=== PATIENT | female | born 1960 | race Caucasian/White ===

== ENCOUNTER 2018-07-18 20:37 | Inpatient (IN) | END 2018-07-21 14:45 | disposition home or self-care (01) | DRG 378 ==

== ENCOUNTER 2018-12-22 20:54 | Inpatient (IN) | payer OTHER ==
[~2018-12-22] VITALS: Ht 157.5 cm; Wt 104.6 kg
[2018-12-22 20:00] VITALS: BP 99/57; PULSE 60; RESP 18
[~2018-12-22 20:54] MED LIST: CEPH500C PO; CYAN100080 PO; FER325 PO; FOLI-49 PO; GABA300C16 PO; INSU100I12 SQ; INSU100I33 SC; LISI10TA2 PO; PANT40TA3 PO; PRAV20TA2 PO; SUCR1TAB35 PO
[2018-12-22 21:30] VITALS: BP 178/86; PULSE 81; RESP 20
[2018-12-22 21:54] VITALS: Ht 157.5 cm; Wt 104.6 kg
[2018-12-22] MEDS ORDERED: AL HYDROX/MG HYDROX/SIMETH 30 ML CUP PO PRN (22:00)
[2018-12-22] MEDS ORDERED: AMOXICILLIN/CLAV 250 MG TAB PO SCH ×2 (22:00→22:45)
[2018-12-22] MEDS ORDERED: SENNA TAB PO SCH (22:00)
[2018-12-22] MEDS ORDERED: DOCUSATE SODIUM 100 MG CAP PO SCH (22:00)
[2018-12-22] MEDS ORDERED: oxyCODONE 5 MG TAB PO PRN ×2 (22:00)
[2018-12-22] MEDS ORDERED: ONDANSETRON 4 MG INJ IV PRN (22:00)
[2018-12-22] MEDS ORDERED: POLYETHYLENE GLYCOL 17 GM PACKET NGT PRN (22:30)
[2018-12-22] MEDS: LABETALOL 200 MG TAB PO SCH (22:49)
[2018-12-22] MEDS: HEPARIN 5,000 UNIT/1 ML VIAL SC SCH (22:50)
[2018-12-22] MEDS: ACCU-CHEK XX SCH (23:21)
[2018-12-22] MEDS ORDERED: GLUCOSE GEL 15 GRAM TUBE PO PRN ×2 (23:30)
[2018-12-22] MEDS: AMOXICILLIN/CLAV 875 MG TAB PO SCH (23:30)
[2018-12-22] MEDS ORDERED: GLUCOSE GEL 15 GRAM TUBE BUCCAL PRN (23:30)
[2018-12-22] MEDS ORDERED: DEXTROSE 50% 50 ML SYRINGE IV PRN ×2 (23:30)
[2018-12-22] MEDS ORDERED: GLUCAGON 1 MG INJ IM PRN (23:30)
[2018-12-22] MEDS: INSULIN ASPART [NOVOLOG] 3 ML PEN SC SCH (23:31)
[2018-12-23] VITALS (9 sets, daily range): BP systolic 140–207; BP diastolic 70–102; PULSE 66–83; RESP 18
[2018-12-23] MEDS ORDERED: PENDING SANTYL ORDER FOR WOUND CARE XX PRN
[2018-12-23] MEDS ORDERED: LACTULOSE 30ML CUP PO PRN
[2018-12-23] MEDS ORDERED: BISACODYL 10 MG SUPP PR PRN
[2018-12-23] MEDS: ACCU-CHEK XX SCH ×5 (02:00→21:06)
[2018-12-23] MEDS: LABETALOL 100 MG TAB PO PRN (04:55)
[2018-12-23] MEDS: HEPARIN 5,000 UNIT/1 ML VIAL SC SCH ×3 (06:28→22:44)
[2018-12-23] MEDS ORDERED: ACCU-CHEK XX SCH ×2 (07:05→11:30)
[2018-12-23] MEDS: LINAGLIPTIN 5 MG TABLET PO SCH (08:20)
[2018-12-23] MEDS: INSULIN ASPART [NOVOLOG] 3 ML PEN SC SCH ×4 (08:20→21:00)
[2018-12-23] MEDS: INSULIN GLARGINE [LANTus] (100 UNITS/ML) SYG SC SCH (08:28)
[2018-12-23] MEDS: AMOXICILLIN/CLAV 875 MG TAB PO SCH ×2 (08:30→20:58)
[2018-12-23] MEDS: GABAPENTIN 300 MG CAP PO SCH ×3 (08:39→20:58)
[2018-12-23] MEDS: AMLODIPINE 10 MG TAB PO SCH (08:40)
[2018-12-23] MEDS: DOCUSATE SODIUM 100 MG CAP PO SCH ×2 (08:40→20:58)
[2018-12-23] MEDS: ASPIRIN 81 MG TAB PO SCH (08:40)
[2018-12-23] MEDS: LACTOBACILLUS RHAMNOSUS CAP PO SCH ×3 (08:41→20:58)
[2018-12-23] MEDS: FERROUS SULFATE (EC) 325 MG TAB PO SCH (08:41)
[2018-12-23] MEDS: FAMOTIDINE 20 MG TAB PO SCH (08:41)
[2018-12-23] MEDS: ASCORBIC ACID 500 MG TAB PO SCH (08:41)
[2018-12-23] MEDS: FOLIC ACID 1 MG TAB PO SCH (08:41)
[2018-12-23] MEDS: LABETALOL 200 MG TAB PO SCH ×3 (08:41→22:43)
[2018-12-23] MEDS ORDERED: AMOXICILLIN/CLAV 250 MG TAB PO SCH (09:00)
[2018-12-23] MEDS: NYSTATIN 30 GM POWDER BTL TOP SCH ×2 (09:47→20:59)
--- NOTE | 2018-12-23 10:37 | HP ---
DATE OF ADMISSION: 12/22/2018 CHIEF COMPLAINT: Status post right BKA. HISTORY OF PRESENT ILLNESS: This is a 58-year-old female with a past medical history of diabetes, history of hypertension who underwent a fall weeks ago resulting in fracture of her right ankle. The patient underwent open reduction internal fixation [facility]. Postoperatively, the patient's course was complicated with infection. The patient required surgical debridement, but eventually was transferred to [facility] on 10/10/2018 for higher level of care. The patient at underwent surgical debridement was placed on antibiotic therapy. However, the patient was found to have osteomyelitis of the entire tibial and distal portions of the fibula as well. The patient was subsequently advised, given her situation that she would require amputation of the infected bone. The patient then underwent right transtibial amputation on 12/16/2017. The patient postoperatively was noted to have an episode of acute kidney injury, had electrolyte disorder. The patient was improved with conservative management. Patient also completed a prolonged antibiotic course but given her significant decline in premorbid condition, was transferred to [facility] for continued care. Upon my evaluation of the patient at this time, she is currently stable and is anxious, nervous. Denies any hemoptysis, hematemesis or hematochezia. Denies any pain. PAST MEDICAL HISTORY: History of diabetes, history of hypertension, history of peripheral vascular disease, history of neuropathy, history of dyslipidemia, history of diabetic wound ulcers with debridement in the past. PAST SURGICAL HISTORY: Reviewed. The patient had open reduction internal fixation on 11/15/2018 of the ankle. ALLERGIES: PATIENT IS ALLERGIC TO PENICILLIN. FAMILY HISTORY: No family history of kidney disease. SOCIAL HISTORY: Does not drink, smoke or do drugs. MEDICATIONS: Have been reviewed. REVIEW OF SYSTEMS: A 14-point review of systems conducted. Pertinent positives stated in HPI, otherwise negative. PHYSICAL EXAMINATION: VITAL SIGNS: Blood pressure is 165/80, respiration 18, pulse 81, temperature 98.4. HEENT: Head is normocephalic. NECK: Supple. HEART: Regular rate. LUNGS: Show diminished breath sounds at base. ABDOMEN: Soft, nontender to palpation without rebound or guarding. EXTREMITIES: Negative for clubbing, cyanosis, no edema in the left leg. Right below-knee amputation is noted. DERMATOLOGIC: No rashes. MUSCULOSKELETAL: No joint effusion. NEUROLOGIC: No change in exam. MEDICATIONS: Have been reviewed. LABORATORY DATA: Shows sodium 138, potassium 4.1, BUN 11, creatinine 1.31, glucose is 303. White count 8.7, hemoglobin 10.6, platelet count 428. ASSESSMENT AND PLAN: This is a 58-year-old female who presents with: 1. Right transtibial amputation. Plan to continue wound care, dressing changes. Continue pain control. Continue physical therapy. 2. Osteomyelitis of tibial bone s/p amputation. Will consult ID for antibiotic management. 2. Hypertension. Blood pressure currently elevated. Will adjust blood pressure medications. 3. Diabetes. Glucose levels are markedly elevated. We will adjust insulin regimen. 4. Anemia. Continue to monitor hemoglobin and hematocrit levels. 5. Mineral bone disorder, monitor calcium and phosphorus levels. 6. Neuropathy. Continue Neurontin. Will adjust as needed. 7. Chronic pain syndrome. Continue current pain regimen. 8. Anxiety disorder. Continue to monitor. 9. Dyslipidemia. Continue statin therapy. 10. Gastrointestinal and deep venous thrombosis prophylaxis. Please note I spent an additional 30 minutes of [id number] time with the patient, discussing code status. The patient is FULL CODE. Dictated By: ISELA BARAJAS DO NR/NTS Conf#: [id number] DID#: [id number] CC: MARYANN JAVIER MD;*EndCC* MTDD
[2018-12-23] MEDS: HYDROmorphONE 0.5 MG/0.5 ML SYG IV PRN ×3 (11:24→19:25)
--- NOTE | 2018-12-23 14:31 | CONS ---
DATE OF ADMISSION: 12/22/2018 DATE OF CONSULTATION: 12/23/2018 TYPE OF CONSULTATION: Rehabilitation post-admission physician evaluation. REHABILITATION IMPAIRMENT CATEGORY: Right dxsiw-byv-sdgq amputation. ACTIVE COMORBIDITIES: 1. Acute and neuropathic pain. 2. Osteomyelitis. 3. Hypertension. 4. Uncontrolled diabetes mellitus type 2. 5. Peripheral vascular disease. 6. Anemia. 7. Acute kidney injury. 8. Hypocalcemia. 9. Hypertension. 10. Impairments in self-care and mobility. HISTORY OF PRESENT ILLNESS: The patient is a pleasant 58-year-old female with a history of labile, u ncontrolled diabetes mellitus, who initially sustained an ankle injury with ORIF with postoperative c omplications including infection requiring debridement. The patient was followed at [facility] where she was noted to have significant osteomyelitis and ultimately required right xqjxp-inv-mes e amputation. The patient's hospital course is notable for significant pain, acute renal failure, an emia and hypocalcemia. The patient has now been cleared to transfer to the rehabilitation unit for c omprehensive interdisciplinary rehab care. FUNCTIONAL HISTORY: Prior to recent events, she was independent in self-care tasks and mobility. Cu rrently, the patient requires max to total assist for self-care and mobility tasks. I have reviewed the preadmission screen and patient's current functional status is consistent with e preadmission screen. FAMILY AND SOCIAL HISTORY: The patient lives at home with her daughter who the patient reports will be able to provide 24-hour supervision. PAST MEDICAL HISTORY: 1. Right ankle injury and osteomyelitis as discussed above. 2. Hypertension. 3. Diabetes mellitus type 2, uncontrolled. 4. Peripheral vascular disease. 5. History of right ankle ORIF. CURRENT MEDICATIONS: 1. Augmentin. 2. Famotidine 20 mg p.o. daily. 3. Ferrous sulfate 325 p.o. daily. 4. Folic acid 1 mg p.o. daily. 5. 300 mg p.o. t.i.d. 6. Heparin subcutaneously. 7. Insulin sliding scale. 8. Labetalol 200 mg p.o. b.i.d. 9. Lantus 4 units subcutaneous daily. 10. Oxycodone. 11. Senokot 1 tab p.o. b.i.d. 12. Vitamin C 500 mg p.o. daily. ALLERGIES: PENICILLIN. PHYSICAL EXAMINATION: VITAL SIGNS: She is currently afebrile with stable vital signs. HEENT: Extraocular motions are intact. Oropharynx is clear. NECK: Supple. LUNGS: Clear anteriorly. CARDIAC: S1, S2. ABDOMEN: Soft, nontender, positive bowel sounds. NEUROLOGIC: She is awake and alert. She can follow simple 1-step commands. She demonstrates antigr avity strength to bilateral upper extremity. In the left lower extremity, she has stump protector in place on the right lower extremity with a right hgwbc-mhe-mvfb amputation. PLAN: The patient has been admitted for comprehensive interdisciplinary acute rehab and is anticipat ed to tolerate 3 hours of daily therapy in divided doses for at least 5/7 days a week. The treatment plan will include: 1. Physical therapy to focus on bed mobility, transfers, wheelchair mobility with the goal of having patient reach a standby assist at the wheelchair level. 2. Occupational therapy to focus on hygiene, grooming, dressing, bathing and toileting activities wi th goal of having patient reach standby assist at the wheelchair level. 3. Rehabilitation nursing for carryover of therapeutic interventions, the goal of continent of bowel and bladder and the goal of pain adequately managed on oral medications. 4. Neuropsychology for adjustment to disease process. REHABILITATION BARRIER: Pain. INTERVENTION FOR BARRIER: Interdisciplinary approach. ESTIMATED LENGTH OF STAY: 14 days. DISPOSITION GOAL: Home. I acknowledge that I performed a full physical examination on this patient within 24 hours of admissi on to the rehabilitation unit. I believe the patient is a good candidate for comprehensive interdisc iplinary rehab care and is anticipated to make reasonable goals in a reasonable period of time as out lined above. Dictated By: MARYANN HERNANDEZ/LEX Conf#: [id number] DID#: [id number] CC: DREW CHAMPAGNE DO;*EndCC*
--- NOTE | 2018-12-23 20:22 | CONS ---
DATE OF ADMISSION: 12/22/2018 DATE OF CONSULTATION: 12/23/2018 TYPE OF CONSULTATION: Infectious disease. REQUESTING PHYSICIAN: Salo Mancera DO Thank you Dr. Mancera for this consultation. HISTORY OF PRESENT ILLNESS: This is an obese, well-developed, elderly woman who was transferred to a [facility]. The patient is with a history of diabetes, hypertension, status post f all resulting in fracture of right ankle. The patient is status post open reduction and internal fix ation with postoperative complication with infected wound. The patient underwent multiple debridemen ts with antibiotic therapy; however developed osteomyelitis of the entire tibial and distal portions of the fibula and subsequently had a below-knee amputation with infected bone being removed and that was done on 12/16/2017. The patient postoperatively developed acute kidney injury and electrolyte di sorders. She completed prolonged antibiotics course and was transferred to subacute facility, [facility] on Augmentin 875 b.i.d. VITAL SIGNS: Temperature 98.3, pulse 78, respirations 18, blood pressure 160/70, saturation 95 on ro om air. LABORATORY DATA: WBC 8.7, H and H 10.6 and 34.9, platelets 428, neutrophils 70.8. BUN 11, creatinin e 1.31. SOCIAL HISTORY: No smoking, alcohol or illicits. REVIEW OF SYSTEMS: All negative per discussion with staff and patient. ALLERGIES: PENICILLIN HOWEVER, THE PATIENT HAS NO REACTION TO AUGMENTIN. PHYSICAL EXAMINATION: GENERAL: This is obese well-developed elderly woman who is alert, sitting comfortably in a chair. HEENT: Head is atraumatic, normocephalic. Sclerae are anicteric. Buccal mucosa is pink. NECK: Supple. CHEST: Rise symmetrical. Breath sounds clear. HEART: S1, S2. ABDOMEN: Obese, soft. Bowel tones are present. EXTREMITIES: Without cyanosis. Right lower extremity has an immobilizer. The patient apparently dietrich s below knee amputation. DIAGNOSTIC IMPRESSION: A 58-year-old with numerous medical problems who has below right knee amputat ion secondary to severe infection of the leg with ongoing osteomyelitis, failed long-term IV antibiot ics. The patient's infected bone had been removed. She is currently on oral antibiotics and stable. We will monitor for postoperative surgical wound infection. Continue on current antibiotics. For now, I guess she will need only short term and reculture if she spikes fever. Continue acute rehabil itation and physical therapy. I discussed with Dr. Hollingsworth who was covering Dr. Knox. Dictated By: J[employer]SNA [employer] for SAM KNOX MD NI/NTS Conf#: [id number] DID#: [id number] CC: MARYANN JAVIER MD; DREW CHAMPAGNE DO;*End*
[2018-12-23] MEDS: ATORVASTATIN 40 MG TAB PO SCH (20:58)
[2018-12-23] MEDS: SENNA TAB PO SCH (20:58)
[2018-12-24 02:00] VITALS: BP 146/70; PULSE 87; RESP 18
[2018-12-24] MEDS: ACCU-CHEK XX SCH ×5 (02:00→21:00)
[2018-12-24] MEDS: DIPHENHYDRAMINE 25 MG CAP PO PRN (03:18)
[2018-12-24] MEDS: HEPARIN 5,000 UNIT/1 ML VIAL SC SCH ×3 (06:49→21:01)
[2018-12-24] MEDS: LABETALOL 200 MG TAB PO SCH ×3 (06:50→20:44)
[2018-12-24 07:30] VITALS: BP 183/88; PULSE 86; RESP 18
[2018-12-24] MEDS: INSULIN ASPART [NOVOLOG] 3 ML PEN SC SCH ×6 (08:30→20:54)
[2018-12-24] MEDS: LINAGLIPTIN 5 MG TABLET PO SCH (08:30)
[2018-12-24] MEDS: GABAPENTIN 300 MG CAP PO SCH ×3 (08:34→20:40)
[2018-12-24] MEDS: FOLIC ACID 1 MG TAB PO SCH (08:35)
[2018-12-24] MEDS: ASPIRIN 81 MG TAB PO SCH (08:35)
[2018-12-24] MEDS: AMLODIPINE 10 MG TAB PO SCH (08:35)
[2018-12-24] MEDS: FAMOTIDINE 20 MG TAB PO SCH (08:37)
[2018-12-24] MEDS: ASCORBIC ACID 500 MG TAB PO SCH (08:37)
[2018-12-24] MEDS: AMOXICILLIN/CLAV 875 MG TAB PO SCH ×2 (08:37→20:40)
[2018-12-24] MEDS: INSULIN GLARGINE [LANTus] (100 UNITS/ML) SYG SC SCH (08:37)
[2018-12-24] MEDS: FERROUS SULFATE (EC) 325 MG TAB PO SCH (08:37)
[2018-12-24] MEDS: LACTOBACILLUS RHAMNOSUS CAP PO SCH ×3 (08:37→20:40)
[2018-12-24] MEDS: DOCUSATE SODIUM 100 MG CAP PO SCH ×2 (09:00→21:00)
--- NOTE | 2018-12-24 09:34 | PN ---
DATE: 12/24/2018 SUBJECTIVE: The patient is stable, no events overnight. OBJECTIVE: VITAL SIGNS: Blood pressure is 146/70, respirations 18, pulse 87, temperature 97.9. HEENT: Head is normocephalic. NECK: Supple. HEART: Regular rate. LUNGS: Show diminished breath sounds at the base. ABDOMEN: Soft, nontender to palpation without rebound or guarding. EXTREMITIES: Negative for clubbing, cyanosis, no edema. The patient has noted right below knee ampu tation. DERMATOLOGIC: No rashes. MUSCULOSKELETAL: No joint effusion. NEUROLOGIC: No change in exam. MEDICATIONS: Reviewed. LABORATORY DATA: Reviewed. ASSESSMENT AND PLAN: 1. Right transtibial amputation. Continue wound care, dressing changes. Continue pain control. 2. Osteomyelitis of tibia. The patient is status post amputation. Follow up with Infectious Diseas e for antibiotic regimen. 3. Hypertension. Continue current blood pressure regimen. 4. Diabetes. Glucose levels remain elevated. We will adjust insulin regimen. 5. Anemia. Monitor hemoglobin and hematocrit levels. 6. Mineral bone disorder. Monitor calcium and phosphorus levels. 7. Neuropathy. Continue Neurontin. 8. Chronic pain syndrome. Continue current pain regimen. 9. Anxiety disorder. Continue to monitor. 10. Dyslipidemia. Continue statin therapy. 11. Gastrointestinal and deep vein thrombosis prophylaxis. Dictated By: ISELA BERNAL/LEX Conf#: [id number] DID#: [id number] CC: DREW CHAMPAGNE DO; MARYANN JAVIER MD;*EndCC*
[2018-12-24] MEDS: NYSTATIN 30 GM POWDER BTL TOP SCH ×2 (10:08→20:44)
--- NOTE | 2018-12-24 12:52 | PN ---
Date/Time of Note Date/Time of Note DATE: 12/24/18 TIME: 12:52 Subjective Pain better Objective Vital Signs Date Temp Pulse Resp B/P (MAP) Pulse Ox O2 O2 Flow FiO2 Time Delivery Rate 12/24/18 98.3 86 18 183/88 95 Room Air 07:30 (119) Intake and Output 12/23/18 12/23/18 12/24/18 1515:00 23:00 07:00 IntakeIntake Total 1750 ml OutputOutput Total 1100 ml 350 ml BalanceBalance 650 ml -350 ml Exam pulm-cta max Results/Medications Result Diagram: 12/23/18 0647 12/23/18 0647 Results 24 hrs Laboratory Tests Test 12/23/18 18:13 12/23/18 20:57 12/24/18 08:03 12/24/18 12:05 Bedside Glucose 247 H 176 240 H 208 Medications Current Medications Atorvastatin Calcium (Lipitor) 40 mg HS PO Last administered on 12/23/18at 20:58; Admin Dose 40 MG; Start 12/23/18 at 21:00 Gabapentin (Neurontin) 300 mg TID PO Last administered on 12/24/18at 12:14; Admin Dose 300 MG; Start 12/23/18 at 09:00 Heparin Sodium (Porcine) (Heparin (5000 Units/1ml)) 5,000 unit Q8 SC Last administered on 12/24/18at 06:49; Admin Dose 5,000 UNIT; Start 12/22/18 at 22:00 Oxycodone HCl (Roxicodone) 5 mg Q4H PRN PO MODERATE PAIN LEVEL 4-6; Start 12/22/18 at 22:00 Oxycodone HCl (Roxicodone) 10 mg Q4H PRN PO SEVERE PAIN LEVEL 7-10; Start 12/22/18 at 22:00 Hydromorphone HCl (Dilaudid) 0.2 mg Q4H PRN IV BREAKTHROUGH PAIN Last administered on 12/23/18at 19:25; Admin Dose 0.2 MG; Start 12/22/18 at 22:00 Ondansetron HCl (Zofran Inj) 4 mg Q4H PRN IV NAUSEA AND/OR VOMITING; Start 12/22/18 at 22:00 Lactobacillus Acidophilus/ Rhamnosus (Culturelle) 1 cap TID PO Last a dministered on 12/24/18 12:14; Admin Dose 1 CAP; Start 12/23/18 at 09:00 Diphenhydramine HCl (Benadryl) 25 mg Q6H PRN PO ITCHING Last administered on 12/24/18 03:18; Admin Dose 25 MG; Start 12/22/18 at 22:00 Al Hydrox/Mg Hydrox/Simethicone (Mag-Al Plus) 30 ml Q4H PRN PO GASTROINTESTINAL UPSET; Start 12/22/18 at 22:00 Nystatin (Nystatin Powder) 1 applic BID TOP Last administered on 12/24/18 1 0:08; Admin Dose 1 APPLIC; Start 12/23/18 at 09:00 Diagnostic Test (Pha) (Accu-Chek) 1 ea 02 XX Last administered on 12/23/18 02:00; Admin Dose 1 EA; Start 12/23/18 at 02:00 Insulin Aspart (Novolog Insulin Pen) NOVOLOG *MODERATE* ALGORITHM WITH MEALS BEDTIME SC Last administered on 12/24/18 12:09; Admin Dose 4 UNIT; Start 12/23/18 at 07:35 Amlodipine Besylate (Norvasc) 10 mg DAILY PO Last administered on 12/24/18 08:35; Admin Dose 10 MG; Start 12/23/18 at 09:00 Ascorbic Acid (Vitamin C) 500 mg DAILY PO Last administered on 12/24/18 08:37; Admin Dose 500 MG; Start 12/23/18 at 09:00 Aspirin (Aspirin) 81 mg DAILY PO Last administered on 12/24/18 08:35; Admin Dose 81 MG; Start 12/23/18 at 09:00 Ergocalciferol (Drisdol) 50,000 unit Th@09 PO ; Start 12/26/18 at 09:00 Famotidine (Pepcid) 20 mg DAILY PO Last administered on 12/24/18 08:37; Admin Dose 20 MG; Start 12/23/18 at 09:00 Ferrous Sulfate (Ferrous Sulfate (Ec)) 325 mg DAILY PO Last administered on 12/24/18 08:37; Admin Dose 325 MG; Start 12/23/18 at 09:00 Folic Acid (Folic Acid) 1 mg DAILY PO Last administered on 12/24/18 08:35; Admin Dose 1 MG; Start 12/23/18 at 09:00 Polyethylene Glycol (Miralax) 17 gm DAILY PRN NGT CONSTIPATION; Start 12/22/18 at 22:30 Miscellaneous Information (* Miscellaneous Pharmacy Order) Pro-Stat 30ml BID BID PO ; Start 12/23/18 at 09:00 Clonidine (Catapres) 0.1 mg Q6H PRN PO ELEVATED BLOOD PRESSURE Last administered on 12/23/18at 02:40; Admin Dose 0.1 MG; Start 12/22/18 at 22:30 Labetalol HCl (Normodyne) 100 mg BID PRN PO ELEVATED BLOOD PRESSURE Last administered on 12/23/18at 04:55; Admin Dose 100 MG; Start 12/22/18 at 22:30 Miscellaneous Information 1 ea NOTE XX ; Start 12/22/18 at 23:30 Glucose (Glutose) 15 gm Q15M PRN PO DECREASED GLUCOSE; Start 12/22/18 at 23:30 Glucose (Glutose) 22.5 gm Q15M PRN PO DECREASED GLUCOSE; Start 12/22/18 at 23:30 Dextrose (D50w Syringe) 25 ml Q15M PRN IV DECREASED GLUCOSE; Start 12/22/18 at 23:30 Dextrose (D50w Syringe) 50 ml Q15M PRN IV DECREASED GLUCOSE; Start 12/22/18 at 23:30 Glucagon (Glucagen) 1 mg Q15M PRN IM DECREASED GLUCOSE; Start 12/22/18 at 23:30 Glucose (Glutose) 15 gm Q15M PRN BUCCAL DECREASED GLUCOSE; Start 12/22/18 at 23:30 Amoxicillin/ Clavulanate Potassium (Augmentin) 875 mg BID PO Last administered on 12/24/18at 08:37; Admin Dose 875 MG; Start 12/22/18 at 23:19 Diagnostic Test (Pha) (Accu-Chek) 1 ea AC MEALS AND BEDTIME XX Last administered on 12/24/18at 12:06; Admin Dose 1 EA; Start 12/22/18 at 23:21 Miscellaneous Information (Pending Santyl Order For Wound Care) This patient dietrich... PRN PRN XX WOUND CARE; Start 12/23/18 at 00:00 Docusate Sodium (Colace) 100 mg BID PO Last administered on 12/23/18at 20:58; Admin Dose 100 MG; Start 12/23/18 at 09:00 Senna (Senokot) 1 tab HS PO Last administered on 12/23/18at 20:58; Admin Dose 1 TAB; Start 12/23/18 at 21:00 Lactulose (Enulose) 20 gm DAILY PRN PO CONSTIPATION; Start 12/23/18 at 00:00 Bisacodyl (Dulcolax Supp) 10 mg DAILY PRN LA CONSTIPATION; Start 12/23/18 at 00:00 Acetaminophen (Tylenol Tab) 650 mg Q4H PRN PO PAIN; Start 12/23/18 at 00:00 Labetalol HCl (Normodyne) 200 mg Q8 PO Last administered on 12/24/18at 06:50; Admin Dose 200 MG; Start 12/23/18 at 14:00 Linagliptin (Tradjenta) 5 mg DAILY PO Last administered on 12/24/18at 08:30; Adm in Dose 5 MG; Start 12/23/18 at 09:30 Insulin Glargine (Lantus) 12 units DAILY@0800 SC ; Start 12/25/18 at 08:00 Insulin Aspart (Novolog Insulin Pen) 5 unit WITH MEALS SC Last administered on 12/24/18at 12:10; Admin Dose 5 UNIT; Start 12/24/18 at 12:00 Assessment/Plan Additional Assessment/Plan Rehab- Right znlrk-chi-eifx amputation. Continue rehab program Acute and neuropathic pain. Osteomyelitis. Hypertension. Uncontrolled diabetes mellitus type 2. Peripheral vascular disease. Anemia. Acute kidney injury. Hypocalcemia. Hypertension. MARYANN JAVIER MD Dec 24, 2018 12:52
[2018-12-24 14:00] VITALS: BP 146/71; PULSE 80; RESP 18
[2018-12-24 20:00] VITALS: BP 153/73; PULSE 79; RESP 18
[2018-12-24] MEDS: ATORVASTATIN 40 MG TAB PO SCH (20:40)
[2018-12-24] MEDS: SENNA TAB PO SCH (21:00)
[2018-12-25 02:00] VITALS: BP 136/73; PULSE 85; RESP 18
[2018-12-25] MEDS: ACCU-CHEK XX SCH ×5 (02:14→21:00)
[2018-12-25] MEDS: LABETALOL 200 MG TAB PO SCH ×3 (05:42→22:00)
[2018-12-25] MEDS: HEPARIN 5,000 UNIT/1 ML VIAL SC SCH ×3 (06:04→22:00)
[2018-12-25 07:30] VITALS: BP 182/85; PULSE 84; RESP 18
[2018-12-25] MEDS ORDERED: INSULIN GLARGINE [LANTus] (100 UNITS/ML) SYG SC SCH (08:00)
[2018-12-25] MEDS: INSULIN ASPART [NOVOLOG] 3 ML PEN SC SCH ×7 (08:18→22:29)
[2018-12-25] MEDS: AMOXICILLIN/CLAV 875 MG TAB PO SCH (08:25)
[2018-12-25] MEDS: LINAGLIPTIN 5 MG TABLET PO SCH (08:25)
[2018-12-25] MEDS: FOLIC ACID 1 MG TAB PO SCH (08:25)
[2018-12-25] MEDS: LACTOBACILLUS RHAMNOSUS CAP PO SCH ×3 (08:25→21:00)
[2018-12-25] MEDS: FERROUS SULFATE (EC) 325 MG TAB PO SCH (08:25)
[2018-12-25] MEDS: ASCORBIC ACID 500 MG TAB PO SCH (08:25)
[2018-12-25] MEDS: GABAPENTIN 300 MG CAP PO SCH ×3 (08:25→21:00)
[2018-12-25] MEDS: FAMOTIDINE 20 MG TAB PO SCH (08:25)
[2018-12-25] MEDS: NYSTATIN 30 GM POWDER BTL TOP SCH ×2 (08:26→21:00)
[2018-12-25] MEDS: DOCUSATE SODIUM 100 MG CAP PO SCH ×2 (08:26→21:00)
[2018-12-25] MEDS: ASPIRIN 81 MG TAB PO SCH (08:26)
--- NOTE | 2018-12-25 08:56 | PN ---
DATE: 12/25/2018 SUBJECTIVE: The patient is stable, no events overnight. The patient's pain is controlled. The william ent is requesting to go home. OBJECTIVE: VITAL SIGNS: Blood pressure is 136/73, respirations 18, pulse 85, temperature 98.0. HEENT: Head is normocephalic. NECK: Supple. HEART: Regular rate. LUNGS: Show diminished breath sounds at the base. ABDOMEN: Soft, nontender to palpation without rebound or guarding. EXTREMITIES: Negative for clubbing, cyanosis in right leg. Left leg has noted right metatarsal ampu tation. DERMATOLOGIC: No rashes. MUSCULOSKELETAL: No joint effusion. NEUROLOGIC: No change in exam. MEDICATIONS: Reviewed. LABORATORY DATA: Shows sodium 135, potassium 3.3, BUN 18, creatinine 1.25, glucose is 248. White co unt is 8.0, hemoglobin 11.0, platelet count is 426. ASSESSMENT AND PLAN: 1. Right transtibial amputation. The patient is currently stable. Continue wound care, continue dr francis cabrera. 2. Osteomyelitis of left tibia. The patient is currently on antibiotic therapy. We will continue. Appreciate Infectious Disease evaluation. 3. Hypertension. Blood pressures have improved. Continue current regimen. 4. Diabetes. Glucose levels are elevated. We will continue to adjust insulin regimen. 5. Anemia. Continue to monitor hemoglobin and hematocrit levels. 6. Mineral bone disorder. Monitor calcium and phosphorus levels. 7. Neuropathy. Continue Neurontin. 8. Chronic pain syndrome. Continue current pain regimen. 9. Anxiety disorder. Continue statin therapy. 10. Gastrointestinal and deep vein thrombosis prophylaxis. Dictated By: ISELA BARAJAS DO NR/NTS Conf#: [id number] DID#: [id number] CC: DREW CHAMPAGNE DO; MARYANN JAVIER MD;*EndCC*
[2018-12-25] MEDS: AMLODIPINE 10 MG TAB PO SCH (09:00)
[2018-12-25 14:00] VITALS: BP 165/75; PULSE 80; RESP 18
--- NOTE | 2018-12-25 14:14 | PN ---
Date/Time of Note Date/Time of Note DATE: 12/25/18 TIME: 14:13 Subjective Comfortable Objective Vital Signs Date Temp Pulse Resp B/P (MAP) Pulse Ox O2 O2 Flow FiO2 Time Delivery Rate 12/25/18 98.3 84 18 182/85 92 Room Air 07:30 (117) Intake and Output 12/24/18 12/24/18 12/25/18 1515:00 23:00 07:00 IntakeIntake Total 980 ml 400 ml OutputOutput Total 850 ml 200 ml 950 ml BalanceBalance -850 ml 780 ml -550 ml Exam max of 1 transfer mod wheelchair Results/Medications Result Diagram: 12/25/18 0652 12/25/18 0652 Results 24 hrs Laboratory Tests Test 12/24/18 16:33 12/24/18 20:39 12/25/18 01:40 12/25/18 06:52 Bedside Glucose 157 190 206 White Blood Count 8.0 Red Blood Count 3.80 L Hemoglobin 11.0 L Hematocrit 35.9 L Mean Corpuscular 94.5 Volume Mean Corpuscular 28.9 L Hemoglobin Mean Corpuscular 30.6 L Hemoglobin Concent Red Cell 15.1 H Distribution Width Platelet Count 426 H Mean Platelet Volume 10.2 Immature 0.600 H Granulocytes % Neutrophils % 65.8 Lymphocytes % 20.4 Monocytes % 7.3 Eosinophils % 5.4 Basophils % 0.5 Nucleated Red Blood 0.0 Cells % Immature 0.050 H Granulocytes # Neutrophils # 5.3 Lymphocytes # 1.6 Monocytes # 0.6 Eosinophils # 0.4 Basophils # 0.0 Nucleated Red Blood 0.0 Cells # Sodium Level 135 Potassium Level 3.8 Chloride Level 97 Carbon Dioxide Level 30 Anion Gap 8 Blood Urea Nitrogen 18 Creatinine 1.25 H Est Glomerular 44 L Filtrat Rate mL/min Glucose Level 251 H Calcium Level 8.1 L Phosphorus Level 4.6 Magnesium Level 1.7 Test 12/25/18 07:43 12/25/18 12:01 Bedside Glucose 248 H 153 Medications Current Medications Atorvastatin Calcium (Lipitor) 40 mg HS PO Last administered on 12/24/18at 20:40; Admin Dose 40 MG; Start 12/23/18 at 21:00 Gabapentin (Neurontin) 300 mg TID PO Last administered on 12/25/18at 14:00; Admin Dose 300 MG; Start 12/23/18 at 09:00 Heparin Sodium (Porcine) (Heparin (5000 Units/1ml)) 5,000 unit Q8 SC Last ad ministered on 12/25/18 14:02; Admin Dose 5,000 UNIT; Start 12/22/18 at 22:00 Oxycodone HCl (Roxicodone) 5 mg Q4H PRN PO MODERATE PAIN LEVEL 4-6; Start 12/22/18 at 22:00 Oxycodone HCl (Roxicodone) 10 mg Q4H PRN PO SEVERE PAIN LEVEL 7-10; Start 12/22/18 at 22:00 Hydromorphone HCl (Dilaudid) 0.2 mg Q4H PRN IV BREAKTHROUGH PAIN Last administered on 12/23/18 19:25; Admin Dose 0.2 MG; Start 12/22/18 at 22:00 Ondansetron HCl (Zofran Inj) 4 mg Q4H PRN IV NAUSEA AND/OR VOMITING; Start 12/22/18 at 22:00 Lactobacillus Acidophilus/ Rhamnosus (Culturelle) 1 cap TID PO Last administered on 12/25/18 14:00; Admin Dose 1 CAP; Start 12/23/18 at 09:00 Diphenhydramine HCl (Benadryl) 25 mg Q6H PRN PO ITCHING Last administered on 12/24/18 03:18; Admin Dose 25 MG; Start 12/22/18 at 22:00 Al Hydrox/Mg Hydrox/Simethicone (Mag-Al Plus) 30 ml Q4H PRN PO GASTROINTESTINAL UPSET; Start 12/22/18 at 22:00 Nystatin (Nystatin Powder) 1 applic BID TOP Last administered on 12/25/18 08:26; Admin Dose 1 APPLIC; Start 12/23/18 at 09:00 Diagnostic Test (Pha) (Accu-Chek) 1 ea 02 XX Last administered on 12/25/18 02:14; Admin Dose 1 EA; Start 12/23/18 at 02:00 Insulin Aspart (Novolog Insulin Pen) NOVOLOG *MODERATE* ALGORITHM WITH MEALS BEDTIME SC Last administered on 12/25/18 12:18; Admin Dose 2 UNIT; Start 12/23/18 at 07:35 Amlodipine Besylate (Norvasc) 10 mg DAILY PO Last administered on 12/25/18at 0 9:00; Admin Dose 10 MG; Start 12/23/18 at 09:00 Ascorbic Acid (Vitamin C) 500 mg DAILY PO Last administered on 12/25/18at 08:25; Admin Dose 500 MG; Start 12/23/18 at 09:00 Aspirin (Aspirin) 81 mg DAILY PO Last administered on 12/25/18at 08:26; Admin Dose 81 MG; Start 12/23/18 at 09:00 Ergocalciferol (Drisdol) 50,000 unit Th@09 PO ; Start 12/26/18 at 09:00 Famotidine (Pepcid) 20 mg DAILY PO Last administered on 12/25/18 08:25; Admin Dose 20 MG; Start 12/23/18 at 09:00 Ferrous Sulfate (Ferrous Sulfate (Ec)) 325 mg DAILY PO Last administered on 12/25/18 08:25; Admin Dose 325 MG; Start 12/23/18 at 09:00 Folic Acid (Folic Acid) 1 mg DAILY PO Last administered on 12/25/18 08:25; Admin Dose 1 MG; Start 12/23/18 at 09:00 Polyethylene Glycol (Miralax) 17 gm DAILY PRN NGT CONSTIPATION; Start 12/22/18 at 22:30 Miscellaneous Information (* Miscellaneous Pharmacy Order) Pro-Stat 30ml BID BID PO ; Start 12/23/18 at 09:00 Clonidine (Catapres) 0.1 mg Q6H PRN PO ELEVATED BLOOD PRESSURE Last adm inistered on 12/23/18at 02:40; Admin Dose 0.1 MG; Start 12/22/18 at 22:30 Labetalol HCl (Normodyne) 100 mg BID PRN PO ELEVATED BLOOD PRESSURE Last administered on 12/23/18at 04:55; Admin Dose 100 MG; Start 12/22/18 at 22:30 Miscellaneous Information 1 ea NOTE XX ; Start 12/22/18 at 23:30 Glucose (Glutose) 15 gm Q15M PRN PO DECREASED GLUCOSE; Start 12/22/18 at 23:30 Glucose (Glutose) 22.5 gm Q15M PRN PO DECREASED GLUCOSE; Start 12/22/18 at 23:30 Dextrose (D50w Syringe) 25 ml Q15M PRN IV DECREASED GLUCOSE; Start 12/22/18 at 23:30 Dextrose (D50w Syringe) 50 ml Q15M PRN IV DECREASED GLUCOSE; Start 12/22/18 at 23:30 Glucagon (Glucagen) 1 mg Q15M PRN IM DECREASED GLUCOSE; Start 12/22/18 at 23:30 Glucose (Glutose) 15 gm Q15M PRN BUCCAL DECREASED GLUCOSE; Start 12/22/18 at 23:30 Amoxicillin/ Clavulanate Potassium (Augmentin) 875 mg BID PO Last administered on 12/25/18 08:25; Admin Dose 875 MG; Start 12/22/18 at 23:19 Diagnostic Test (Pha) (Accu-Chek) 1 ea AC MEALS AND BEDTIME XX Last administered on 12/25/18 12:23; Admin Dose 1 EA; Start 12/22/18 at 23:21 Miscellaneous Information (Pending [facility] Order For Wound Care) This patient dietrich... PRN PRN XX WOUND CARE; Start 12/23/18 at 00:00 Docusate Sodium (Colace) 100 mg BID PO Last administered on 12/23/18at 20:58; Admin Dose 100 MG; Start 12/23/18 at 09:00 Senna (Senokot) 1 tab HS PO Last administered on 12/23/18at 20:58; Admin Dose 1 TAB; Start 12/23/18 at 21:00 Lactulose (Enulose) 20 gm DAILY PRN PO CONSTIPATION; Start 12/23/18 at 00:00 Bisacodyl (Dulcolax Supp) 10 mg DAILY PRN [place] CONSTIPATION; Start 12/23/18 at 00:00 Acetaminophen (Tylenol Tab) 650 mg Q4H PRN PO PAIN; Start 12/23/18 at 00:00 Labetalol HCl (Normodyne) 200 mg Q8 PO Last administered on 12/25/18at 14:01; Admin Dose 200 MG; Start 12/23/18 at 14:00 Linagliptin (Tradjenta) 5 mg DAILY PO Last administered on 12/25/18 08:25; Admin Dose 5 MG; Start 12/23/18 at 09:30 Insulin Aspart (Novolog Insulin Pen) 5 unit WITH MEALS SC Last administered on 12/25/18 12:19; Admin Dose 5 UNIT; Start 12/24/18 at 12:00 Insulin Glargine (Lantus) 14 units DAILY@0800 SC ; Start 12/26/18 at 08:00 Assessment/Plan Additional Assessment/Plan Rehab- Right [id number] amputation. Continue rehab activities Acute and neuropathic pain. Osteomyelitis. Hypertension. Uncontrolled diabetes mellitus type 2. Peripheral vascular disease. Anemia. Acute kidney injury. Hypocalcemia. Hypertension. MARYANN JAVIER MD Dec 25, 2018 14:14
--- NOTE | 2018-12-25 15:04 | CONS ---
Assessment/Plan Assessment/Plan Hospital Course (Demo Recall) Patient is alert lying comfortably in bed no fevers overnight denies dysuria no hematuria. Urine culture sent on this admission growing Norma glabrata. WBC today 8 no shift no bands BUN 18 creatinine 1.25 PHYSICAL EXAMINATION: GENERAL: This is obese well-developed elderly woman who is alert, . HEENT: Head is atraumatic, normocephalic. Sclerae are anicteric. Buccal mucosa is pink. NECK: Supple. CHEST: Rise symmetrical. Breath sounds clear. HEART: S1, S2. ABDOMEN: Obese, soft. Bowel tones are present. EXTREMITIES: Without cyanosis. Right lower extremity stump wrapped, im mobilizer present Assessment: 1. Funguria, consistent with colonization 2. History of right lower extremity infection with ongoing osteomyelitis status post below-knee amputation 3. Diabetes with diabetic neuropathy 4. Hypertension Plan: Remains stable, no need to treat for UTI, monitor right lower extremity stump for infection and necrosis==> patient has an area of demarcation below incision, fox intact no drainage. DC antibiotics Discussed with RN Consultation Date/Type/Reason Admit Date/Time Dec 22, 2018 at 20:54 Initial Consult Date Reason for Consultation id Date/Time of Note DATE: 12/25/18 TIME: 15:03 Exam/Review of Systems Exam Vitals Vital Signs Date Temp Pulse Resp B/P (MAP) Pulse Ox O2 O2 Flow FiO2 Time Delivery Rate 12/25/18 98.3 84 18 182/85 92 Room Air 07:30 (117) Intake and Output 12/24/18 12/24/18 12/25/18 1515:00 23:00 07:00 IntakeIntake Total 980 ml 400 ml OutputOutput Total 850 ml 200 ml 950 ml BalanceBalance -850 ml 780 ml -550 ml Results Result Diagram: 12/25/18 0652 12/25/18 0652 Results 24hrs Laboratory Tests Test 12/24/18 16:33 12/24/18 20:39 12/25/18 01:40 12/25/18 06:52 Bedside Glucose 157 190 206 White Blood Count 8.0 Red Blood Count 3.80 L Hemoglobin 11.0 L Hematocrit 35.9 L Mean Corpuscular 94.5 Volume Mean Corpuscular 28.9 L Hemoglobin Mean Corpuscular 30.6 L Hemoglobin Concent Red Cell 15.1 H Distribution Width Platelet Count 426 H Mean Platelet Volume 10.2 Immature 0.600 H Granulocytes % Neutrophils % 65.8 Lymphocytes % 20.4 Monocytes % 7.3 Eosinophils % 5.4 Basophils % 0.5 Nucleated Red Blood 0.0 Cells % Immature 0.050 H Granulocytes # Neutrophils # 5.3 Lymphocytes # 1.6 Monocytes # 0.6 Eosinophils # 0.4 Basophils # 0.0 Nucleated Red Blood 0.0 Cells # Sodium Level 135 Potassium Level 3.8 Chloride Level 97 Carbon Dioxide Level 30 Anion Gap 8 Blood Urea Nitrogen 18 Creatinine 1.25 H Est Glomerular 44 L Filtrat Rate mL/min Glucose Level 251 H Calcium Level 8.1 L Phosphorus Level 4.6 Magnesium Level 1.7 Test 12/25/18 07:43 12/25/18 12:01 Bedside Glucose 248 H 153 Medications Medication Current Medications Atorvastatin Calcium (Lipitor) 40 mg HS PO Last administered on 12/24/18 20:40; Admin Dose 40 MG; Start 12/23/18 at 21:00 Gabapentin (Neurontin) 300 mg TID PO Last administered on 12/25/18 14:00; Admin Dose 300 MG; Start 12/23/18 at 09:00 Heparin Sodium (Porcine) (Heparin (5000 Units/1ml)) 5,000 unit Q8 SC Last administered on 12/25/18 14:02; Admin Dose 5,000 UNIT; Start 12/22/18 at 22:00 Oxycodone HCl (Roxicodone) 5 mg Q4H PRN PO MODERATE PAIN LEVEL 4-6; Start 12/22/18 at 22:00 Oxycodone HCl (Roxicodone) 10 mg Q4H PRN PO SEVERE PAIN LEVEL 7-10; Start 12/22/18 at 22:00 Hydromorphone HCl (Dilaudid) 0.2 mg Q4H PRN IV BREAKTHROUGH PAIN Last administered on 12/23/18 19:25; Admin Dose 0.2 MG; Start 12/22/18 at 22:00 Ondansetron HCl (Zofran Inj) 4 mg Q4H PRN IV NAUSEA AND/OR VOMITING; Start 12/22/18 at 22:00 Lactobacillus Acidophilus/ Rhamnosus (Culturelle) 1 cap TID PO Last administered on 12/25/18at 14:00; Admin Dose 1 CAP; Start 12/23/18 at 09:00 Diphenhydramine HCl (Benadryl) 25 mg Q6H PRN PO ITCHING Last administered on 12/24/18 03:18; Admin Dose 25 MG; Start 12/22/18 at 22:00 Al Hydrox/Mg Hydrox/Simethicone (Mag-Al Plus) 30 ml Q4H PRN PO GASTROINTESTINAL UPSET; Start 12/22/18 at 22:00 Nystatin (Nystatin Powder) 1 applic BID TOP Last administered on 12/25/18 08:26; Admin Dose 1 APPLIC; Start 12/23/18 at 09:00 Diagnostic Test (Pha) (Accu-Chek) 1 ea 02 XX Last administered on 12/25/18 02:14; Admin Dose 1 EA; Start 12/23/18 at 02:00 Insulin Aspart (Novolog Insulin Pen) NOVOLOG *MODERATE* ALGORITHM WITH MEALS BEDTIME SC Last administered on 12/25/18 12:18; Admin Dose 2 UNIT; Start 12/23/18 at 07:35 Amlodipine Besylate (Norvasc) 10 mg DAILY PO Last administered on 12/25/18 09:00; Admin Dose 10 MG; Start 12/23/18 at 09:00 Ascorbic Acid (Vitamin C) 500 mg DAILY PO Last administered on 12/25/18 08:25; Admin Dose 500 MG; Start 12/23/18 at 09:00 Aspirin (Aspirin) 81 mg DAILY PO Last administered on 12/25/18 08:26; Admin Dose 81 MG; Start 12/23/18 at 09:00 Ergocalciferol (Drisdol) 50,000 unit Th@09 PO ; Start 12/26/18 at 09:00 Famotidine (Pepcid) 20 mg DAILY PO Last administered on 12/25/18 08:25; Admin Dose 20 MG; Start 12/23/18 at 09:00 Ferrous Sulfate (Ferrous Sulfate (Ec)) 325 mg DAILY PO Last administered on 12/25/18 08:25; Admin Dose 325 MG; Start 12/23/18 at 09:00 Folic Acid (Folic Acid) 1 mg DAILY PO Last administered on 12/25/18 08:25; Admin Dose 1 MG; Start 12/23/18 at 09:00 Polyethylene Glycol (Miralax) 17 gm DAILY PRN NGT CONSTIPATION; Start 12/22/18 at 22:30 Miscellaneous Information (* Miscellaneous Pharmacy Order) Pro-Stat 30ml BID BID PO ; Start 12/23/18 at 09:00 Clonidine (Catapres) 0.1 mg Q6H PRN PO ELEVATED BLOOD PRESSURE Last administered on 12/23/18at 02:40; Admin Dose 0.1 MG; Start 12/22/18 at 22:30 Labetalol HCl (Normodyne) 100 mg BID PRN PO ELEVATED BLOOD PRESSURE Last administered on 12/23/18at 04:55; Admin Dose 100 MG; Start 12/22/18 at 22:30 Miscellaneous Information 1 ea NOTE XX ; Start 12/22/18 at 23:30 Glucose (Glutose) 15 gm Q15M PRN PO DECREASED GLUCOSE; Start 12/22/18 at 23:30 Glucose (Glutose) 22.5 gm Q15M PRN PO DECREASED GLUCOSE; Start 12/22/18 at 23:30 Dextrose (D50w Syringe) 25 ml Q15M PRN IV DECREASED GLUCOSE; Start 12/22/18 at 23:30 Dextrose (D50w Syringe) 50 ml Q15M PRN IV DECREASED GLUCOSE; Start 12/22/18 at 23:30 Glucagon (Glucagen) 1 mg Q15M PRN IM DECREASED GLUCOSE; Start 12/22/18 at 23:30 Glucose (Glutose) 15 gm Q15M PRN BUCCAL DECREASED GLUCOSE; Start 12/22/18 at 23:30 Amoxicillin/ Clavulanate Potassium (Augmentin) 875 mg BID PO Last administered on 12/25/18at 08:25; Admin Dose 875 MG; Start 12/22/18 at 23:19 Diagnostic Test (Pha) (Accu-Chek) 1 ea AC MEALS AND BEDTIME XX Last administered on 12/25/18at 12:23; Admin Dose 1 EA; Start 12/22/18 at 23:21 [facility] This patient dietrich... PRN PRN XX WOUND CARE; Start 12/23/18 at 00:00 Docusate Sodium (Colace) 100 mg BID PO Last administered on 12/23/18at 20:58; Admin Dose 100 MG; Start 12/23/18 at 09:00 Senna (Senokot) 1 tab HS PO Last administered on 12/23/18at 20:58; Admin Dose 1 TAB; Start 12/23/18 at 21:00 Lactulose (Enulose) 20 gm DAILY PRN PO CONSTIPATION; Start 12/23/18 at 00:00 Bisacodyl (Dulcolax Supp) 10 mg DAILY PRN [place] CONSTIPATION; Start 12/23/18 at 00:00 Acetaminophen (Tylenol Tab) 650 mg Q4H PRN PO PAIN; Start 12/23/18 at 00:00 Labetalol HCl (Normodyne) 200 mg Q8 PO Last administered on 12/25/18at 14:01; Admin Dose 200 MG; Start 12/23/18 at 14:00 Linagliptin (Tradjenta) 5 mg DAILY PO Last administered on 12/25/18at 08:25; Admin Dose 5 MG; Start 12/23/18 at 09:30 Insulin Aspart (Novolog Insulin Pen) 5 unit WITH MEALS SC Last administered on 12/25/18at 12:19; Admin Dose 5 UNIT; Start 12/24/18 at 12:00 Insulin Glargine (Lantus) 14 units DAILY@0800 SC ; Start 12/26/18 at 08:00 JYOTSNA ANNA NP Dec 25, 2018 15:04
--- NOTE | 2018-12-25 17:25 | PSY ---
Date/Time of Note Date/Time of Note DATE: 12/25/18 TIME: 17:19 Psychiatric Subjective Eval Consent Pt consented to telemedicine: No Subjective Evaluation Patient location: inpatient History of present illness Patient is a 58-year-old with medical history of below right knee amputation secondary to severe infection of the leg due to osteomyelitis, [id number] evaluation, patient is tearful, she states she is grieving over the loss of her leg, patient states she has never seen a psychiatrist. She denies feeling of hopelessness denies suicidal ideation and contracted for safety. Discussed risk and benefits of antidepressants but patient declined, states she would get a used to the amputation Past psychiatric history Denies Hospitalization: other Allergies: Coded Allergies: Penicillins (Verified Allergy, Unknown, nosebleed per pt, 07/18/18) Substance Abuse Substance abuse history: No Prior substance abuse treatmen: No Social History Marital status: other DPA/Conservatorship: No Psychiatric Objective Eval Review of Systems: Review of Systems: Not Applicable Physical Examination: Physical Examination: Not Applicable Energy: Decreased Interest: Decreased Mental Status Examination: Appearance: Groomed Eye Contact: Fair Psychomotor Activity: Normal Behavior: Cooperative Speech: Clear AFFECT: Appropriate, Depressed Mood: Depressed Though Process: Linear Thought Content: Normal Insight: Intact Judgement: Intact Attention Span: Distractible Laboratory Results Laboratory Tests Test 12/23/18 18:13 12/23/18 20:57 12/24/18 08:03 12/24/18 12:05 Bedside Glucose 247 mg/dL 176 mg/dL 240 mg/dL 208 mg/dL Test 12/24/18 16:33 12/24/18 20:39 12/25/18 01:40 12/25/18 06:52 Bedside Glucose 157 mg/dL 190 mg/dL 206 mg/dL White Blood Count 8.0 10^3/ul Red Blood Count 3.80 10^6/ul Hemoglobin 11.0 g/dl Hematocrit 35.9 % Mean Corpuscular 94.5 fl Volume Mean Corpuscular 28.9 pg Hemoglobin Mean Corpuscular 30.6 g/dl Hemoglobin Concent Red Cell 15.1 % Distribution Width Platelet Count 426 10^3/UL Mean Platelet 10.2 fl Volume Immature 0.600 % Granulocytes % Neutrophils % 65.8 % Lymphocytes % 20.4 % Monocytes % 7.3 % Eosinophils % 5.4 % Basophils % 0.5 % Nucleated Red Blood 0.0 /100WBC Cells % Immature 0.050 10^3/ul Granulocytes # Neutrophils # 5.3 10^3/ul Lymphocytes # 1.6 10^3/ul Monocytes # 0.6 10^3/ul Eosinophils # 0.4 10^3/ul Basophils # 0.0 10^3/ul Nucleated Red Blood 0.0 10^3/ul Cells # Sodium Level 135 mmol/L Potassium Level 3.8 mmol/L Chloride Level 97 mmol/L Carbon Dioxide 30 mmol/L Level Anion Gap 8 Blood Urea Nitrogen 18 mg/dl Creatinine 1.25 mg/dl Est Glomerular 44 mL/min Filtrat Rate mL/min Glucose Level 251 mg/dl Calcium Level 8.1 mg/dl Phosphorus Level 4.6 mg/dl Magnesium Level 1.7 mg/dl Test 12/25/18 07:43 12/25/18 12:01 Bedside Glucose 248 mg/dL 153 mg/dL Assessment and Plan Assessment/Diagnosis Diagnosis 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
[2018-12-25 20:00] VITALS: BP 145/65; PULSE 82; RESP 18
[2018-12-25] MEDS: SENNA TAB PO SCH (21:00)
[2018-12-25] MEDS: ATORVASTATIN 40 MG TAB PO SCH (21:00)
[2018-12-26 02:00] VITALS: BP 149/72; PULSE 78; RESP 18
[2018-12-26] MEDS: ACCU-CHEK XX SCH ×5 (02:45→21:00)
[2018-12-26 07:00] VITALS: BP 177/88; PULSE 91; RESP 18
[2018-12-26] MEDS: LABETALOL 200 MG TAB PO SCH ×3 (07:09→22:25)
[2018-12-26] MEDS: HEPARIN 5,000 UNIT/1 ML VIAL SC SCH ×3 (07:12→22:21)
[2018-12-26] MEDS ORDERED: INSULIN GLARGINE [LANTus] (100 UNITS/ML) SYG SC SCH (08:00)
[2018-12-26] MEDS: INSULIN ASPART [NOVOLOG] 3 ML PEN SC SCH ×6 (08:53→20:48)
[2018-12-26] MEDS: ASCORBIC ACID 500 MG TAB PO SCH (08:55)
[2018-12-26] MEDS: FOLIC ACID 1 MG TAB PO SCH (08:55)
[2018-12-26] MEDS: LACTOBACILLUS RHAMNOSUS CAP PO SCH ×3 (08:55→22:36)
[2018-12-26] MEDS: FERROUS SULFATE (EC) 325 MG TAB PO SCH (08:55)
[2018-12-26] MEDS: GABAPENTIN 300 MG CAP PO SCH ×3 (08:55→22:24)
[2018-12-26] MEDS: ASPIRIN 81 MG TAB PO SCH (08:55)
[2018-12-26] MEDS: FAMOTIDINE 20 MG TAB PO SCH (08:55)
[2018-12-26] MEDS: AMLODIPINE 10 MG TAB PO SCH (08:56)
[2018-12-26] MEDS: LINAGLIPTIN 5 MG TABLET PO SCH (08:56)
--- NOTE | 2018-12-26 08:56 | PN ---
DATE: 12/26/2018 SUBJECTIVE: The patient is stable. The patient's glucose levels remain elevated. No other events n oted. OBJECTIVE: VITAL SIGNS: Blood pressure is 149/72, respirations 18, pulse 78, temperature 98.2. HEENT: Head is normocephalic. NECK: Supple. HEART: Regular rate. LUNGS: Show diminished breath sounds at the base. ABDOMEN: Soft, nontender to palpation without rebound or guarding. EXTREMITIES: Negative for clubbing, cyanosis. Positive right below-knee amputation. DERMATOLOGIC: No rashes. MUSCULOSKELETAL: No joint effusion. NEUROLOGIC: No change in exam. MEDICATIONS: Reviewed. LABORATORY DATA: Reviewed. ASSESSMENT AND PLAN: 1. Right transtibial amputation. The patient is currently stable. Continue wound care, continue dr francis cabrera. 2. Osteomyelitis of right foot. Continue antibiotic therapy. Appreciate infectious disease evaluat ion. 3. Hypertension. Continue current blood pressure regimen. 4. Diabetes. The patient's glucose levels remain elevated. Continue to adjust insulin regimen. 5. Anemia. Continue to monitor hemoglobin and hematocrit levels. 6. Mineral bone disorder, monitor calcium and phosphorus levels. 7. Neuropathy. Continue Neurontin. 8. Chronic pain syndrome. Continue current pain regimen. 9. Anxiety disorder. Continue statin therapy. 10. Gastrointestinal and deep vein thrombosis prophylaxis. Dictated By: ISELA BARAJAS DO NR/NTS Conf#: [id number] DID#: [id number] CC: MARYANN JAVIER MD; NATANAEL LOVE NP; DREW CHAMPAGNE DO;*EndCC*
[2018-12-26] MEDS: DOCUSATE SODIUM 100 MG CAP PO SCH ×2 (09:00→21:00)
[2018-12-26] MEDS: NYSTATIN 30 GM POWDER BTL TOP SCH ×2 (09:01→22:30)
[2018-12-26] MEDS: ERGOCALCIFEROL 50,000 UNIT CAP PO SCH (10:34)
--- NOTE | 2018-12-26 11:25 | PN ---
Date/Time of Note Date/Time of Note DATE: 12/26/18 TIME: 11:24 Subjective patient motivated for therapies Objective Vital Signs Date Temp Pulse Resp B/P (MAP) Pulse Ox O2 O2 Flow FiO2 Time Delivery Rate 12/26/18 98.6 91 18 177/88 93 Room Air 07:00 (117) Intake and Output 12/25/18 12/25/18 12/26/18 1515:00 23:00 07:00 IntakeIntake Total 760 ml 550 ml OutputOutput Total 200 ml BalanceBalance -200 ml 760 ml 550 ml Exam pulm-cta max transfer Results/Medications Result Diagram: 12/25/18 0652 12/25/18 0652 Results 24 hrs Laboratory Tests Test 12/25/18 12:01 12/25/18 17:32 12/25/18 22:25 12/26/18 02:36 Bedside Glucose 153 167 194 229 H Test 12/26/18 07:31 Bedside Glucose 260 H Medications Current Medications Atorvastatin Calcium (Lipitor) 40 mg HS PO Last administered on 12/24/18at 20:40; Admin Dose 40 MG; Start 12/23/18 at 21:00 Gabapentin (Neurontin) 300 mg TID PO Last administered on 12/26/18at 08:55; Admin Dose 300 MG; Start 12/23/18 at 09:00 Heparin Sodium (Porcine) (Heparin (5000 Units/1ml)) 5,000 unit Q8 SC Last administered on 12/26/18at 07:12; Admin Dose 5,000 UNIT; Start 12/22/18 at 22:00 Oxycodone HCl (Roxicodone) 5 mg Q4H PRN PO MODERATE PAIN LEVEL 4-6; Start 12/22/18 at 22:00 Oxycodone HCl (Roxicodone) 10 mg Q4H PRN PO SEVERE PAIN LEVEL 7-10; Start 12/22/18 at 22:00 Hydromorphone HCl (Dilaudid) 0.2 mg Q4H PRN IV BREAKTHROUGH PAIN Last administered on 12/23/18at 19:25; Admin Dose 0.2 MG; Start 12/22/18 at 22:00 Ondansetron HCl (Zofran Inj) 4 mg Q4H PRN IV NAUSEA AND/OR VOMITING; Start 12/22/18 at 22:00 Lactobacillus Acidophilus/ Rhamnosus (Culturelle) 1 cap TID PO Last administered on 12/26/18 08:55; Admin Dose 1 CAP; Start 12/23/18 at 09:00 Diphenhydramine HCl (Benadryl) 25 mg Q6H PRN PO ITCHING Last administered on 12/24/18 03:18; Admin Dose 25 MG; Start 12/22/18 at 22:00 Al Hydrox/Mg Hydrox/Simethicone (Mag-Al Plus) 30 ml Q4H PRN PO GASTROINTESTINAL UPSET; Start 12/22/18 at 22:00 Nystatin (Nystatin Powder) 1 applic BID TOP Last administered on 12/26/18 09:01; Admin Dose 1 APPLIC; Start 12/23/18 at 09:00 Diagnostic Test (Pha) (Accu-Chek) 1 ea 02 XX Last administered on 12/26/18 02:45; Admin Dose 1 EA; Start 12/23/18 at 02:00 Insulin Aspart (Novolog Insulin Pen) NOVOLOG *MODERATE* ALGORITHM WITH MEALS BEDTIME SC Last administered on 12/26/18 08:53; Admin Dose 6 UNIT; Start 12/23/18 at 07:35 Amlodipine Besylate (Norvasc) 10 mg DAILY PO Last administered on 12/26/18 08:56; Admin Dose 10 MG; Start 12/23/18 at 09:00 Ascorbic Acid (Vitamin C) 500 mg DAILY PO Last administered on 12/26/18 08:55; Admin Dose 500 MG; Start 12/23/18 at 09:00 Aspirin (Aspirin) 81 mg DAILY PO Last administered on 12/26/18 08:55; Admin Dose 81 MG; Start 12/23/18 at 09:00 Ergocalciferol (Drisdol) 50,000 unit Th@09 PO Last administered on 12/26/18 10:34; Admin Dose 50,000 UNIT; Start 12/26/18 at 09:00 Famotidine (Pepcid) 20 mg DAILY PO Last administered on 12/26/18 08:55; Admin Dose 20 MG; Start 12/23/18 at 09:00 Ferrous Sulfate (Ferrous Sulfate (Ec)) 325 mg DAILY PO Last administered on 12/26/18 08:55; Admin Dose 325 MG; Start 12/23/18 at 09:00 Folic Acid (Folic Acid) 1 mg DAILY PO Last administered on 12/26/18at 08:55; Admin Dose 1 MG; Start 12/23/18 at 09:00 Polyethylene Glycol (Miralax) 17 gm DAILY PRN NGT CONSTIPATION; Start 12/22/18 at 22:30 Miscellaneous Information (* Miscellaneous Pharmacy Order) Pro-Stat 30ml BID BID PO ; Start 12/23/18 at 09:00 Clonidine (Catapres) 0.1 mg Q6H PRN PO ELEVATED BLOOD PRESSURE Last administered on 12/23/18at 02:40; Admin Dose 0.1 MG; Start 12/22/18 at 22:30 Labetalol HCl (Normodyne) 100 mg BID PRN PO ELEVATED BLOOD PRESSURE Last administered on 12/23/18at 04:55; Admin Dose 100 MG; Start 12/22/18 at 22:30 Miscellaneous Information 1 ea NOTE XX ; Start 12/22/18 at 23:30 Glucose (Glutose) 15 gm Q15M PRN PO DECREASED GLUCOSE; Start 12/22/18 at 23:30 Glucose (Glutose) 22.5 gm Q15M PRN PO DECREASED GLUCOSE; Start 12/22/18 at 23:30 Dextrose (D50w Syringe) 25 ml Q15M PRN IV DECREASED GLUCOSE; Start 12/22/18 at 23:30 Dextrose (D50w Syringe) 50 ml Q15M PRN IV DECREASED GLUCOSE; Start 12/22/18 at 23:30 Glucagon (Glucagen) 1 mg Q15M PRN IM DECREASED GLUCOSE; Start 12/22/18 at 23:30 Glucose (Glutose) 15 gm Q15M PRN BUCCAL DECREASED GLUCOSE; Start 12/22/18 at 23:30 Diagnostic Test (Pha) (Accu-Chek) 1 ea AC MEALS AND BEDTIME XX Last administered on 12/26/18at 07:05; Admin Dose 1 EA; Start 12/22/18 at 23:21 Miscellaneous Information (Pending Santyl Order For Wound Care) This patient dietrich... PRN PRN XX WOUND CARE; Start 12/23/18 at 00:00 Docusate Sodium (Colace) 100 mg BID PO Last administered on 12/23/18at 20:58; Admin Dose 100 MG; Start 12/23/18 at 09:00 Senna (Senokot) 1 tab HS PO Last administered on 12/23/18at 20:58; Admin Dose 1 TAB; Start 12/23/18 at 21:00 Lactulose (Enulose) 20 gm DAILY PRN PO CONSTIPATION; Start 12/23/18 at 00:00 Bisacodyl (Dulcolax Supp) 10 mg DAILY PRN [place] CONSTIPATION; Start 12/23/18 at 00:00 Acetaminophen (Tylenol Tab) 650 mg Q4H PRN PO PAIN; Start 12/23/18 at 00:00 Labetalol HCl (Normodyne) 200 mg Q8 PO Last administered on 12/26/18at 07:09; Admin Dose 200 MG; Start 12/23/18 at 14:00 Linagliptin (Tradjenta) 5 mg DAILY PO Last administered on 12/26/18at 08:56; Admin Dose 5 MG; Start 12/23/18 at 09:30 Insulin Aspart (Novolog Insulin Pen) 7 unit WITH MEALS SC ; Start 12/26/18 at 12:00 Insulin Glargine (Lantus) 16 units DAILY@0800 SC ; Start 12/27/18 at 08:00 Assessment/Plan Additional Assessment/Plan Rehab- Right [id number] amputation. Continue rehab treatment plan, patient making steady gains Acute and neuropathic pain. Osteomyelitis. Hypertension. Uncontrolled diabetes mellitus type 2. Peripheral vascular disease. Anemia. Acute kidney injury. Hypocalcemia. Hypertension. MARYANN JAVIER MD Dec 26, 2018 11:25
[2018-12-26 14:00] VITALS: BP 175/84; PULSE 79; RESP 18
--- NOTE | 2018-12-26 16:45 | CONS ---
Assessment/Plan Assessment/Plan Hospital Course (Demo Recall) No acute events, looks comfortable, no fevers PHYSICAL EXAMINATION: GENERAL: This is obese well-developed elderly woman who is alert, . HEENT: Head is atraumatic, normocephalic. Sclerae are anicteric. Buccal mucosa is pink. NECK: Supple. CHEST: Rise symmetrical. Breath sounds clear. HEART: S1, S2. ABDOMEN: Obese, soft. Bowel tones are present. EXTREMITIES: Without cyanosis. Right lower extremity stump wrapped, immobilizer present Assessment: 1. Funguria, consistent with colonization 2. History of right lower extremity infection with ongoing osteomyelitis status post below-knee amputation 3. Diabetes with diabetic neuropathy 4. Hypertension Plan: Remains stable, monitor right lower extremity stump for infection and necrosis==> patient has an area of demarcation below incision, fox intact no drainage. Discussed with RN Consultation Date/Type/Reason Admit Date/Time Dec 22, 2018 at 20:54 Initial Consult Date Type of Consult id Date/Time of Note DATE: 12/26/18 TIME: 16:43 Exam/Review of Systems Exam Vitals Vital Signs Date Temp Pulse Resp B/P (MAP) Pulse Ox O2 O2 Flow FiO2 Time Delivery Rate 12/26/18 98.6 91 18 177/88 93 Room Air 07:00 (117) Intake and Output 12/25/18 12/25/18 12/26/18 1515:00 23:00 07:00 IntakeIntake Total 760 ml 550 ml OutputOutput Total 200 ml BalanceBalance -200 ml 760 ml 550 ml Results Result Diagram: 12/25/18 0652 12/25/18 0652 Results 24hrs Laboratory Tests Test 12/25/18 17:32 12/25/18 22:25 12/26/18 02:36 12/26/18 07:31 Bedside Glucose 167 194 229 H 260 H Test 12/26/18 11:54 Bedside Glucose 261 H Medications Medication Current Medications Atorvastatin Calcium (Lipitor) 40 mg HS PO Last administered on 12/24/18at 20:40; Admin Dose 40 MG; Start 12/23/18 at 21:00 Gabapentin (Neurontin) 300 mg TID PO Last administered on 12/26/18at 13:24; Admin Dose 300 MG; Start 12/23/18 at 09:00 Heparin Sodium (Porcine) (Heparin (5000 Units/1ml)) 5,000 unit Q8 SC Last administered on 12/26/18 13:32; Admin Dose 5,000 UNIT; Start 12/22/18 at 22:00 Oxycodone HCl (Roxicodone) 5 mg Q4H PRN PO MODERATE PAIN LEVEL 4-6; Start 12/22/18 at 22:00 Oxycodone HCl (Roxicodone) 10 mg Q4H PRN PO SEVERE PAIN LEVEL 7-10; Start 12/22/18 at 22:00 Hydromorphone HCl (Dilaudid) 0.2 mg Q4H PRN IV BREAKTHROUGH PAIN Last administered on 12/23/18 19:25; Admin Dose 0.2 MG; Start 12/22/18 at 22:00 Ondansetron HCl (Zofran Inj) 4 mg Q4H PRN IV NAUSEA AND/OR VOMITING; Start 12/22/18 at 22:00 Lactobacillus Acidophilus/ Rhamnosus (Culturelle) 1 cap TID PO Last administered on 12/26/18 13:24; Admin Dose 1 CAP; Start 12/23/18 at 09:00 Diphenhydramine HCl (Benadryl) 25 mg Q6H PRN PO ITCHING Last administered on 12/24/18 03:18; Admin Dose 25 MG; Start 12/22/18 at 22:00 Al Hydrox/Mg Hydrox/Simethicone (Mag-Al Plus) 30 ml Q4H PRN PO GASTROINTESTINAL UPSET; Start 12/22/18 at 22:00 Nystatin (Nystatin Powder) 1 applic BID TOP Last administered on 12/26/18at 09:01; Admin Dose 1 APPLIC; Start 12/23/18 at 09:00 Diagnostic Test (Pha) (Accu-Chek) 1 ea 02 XX Last administered on 12/26/18 02:45; Admin Dose 1 EA; Start 12/23/18 at 02:00 Insulin Aspart (Novolog Insulin Pen) NOVOLOG *MODERATE* ALGORITHM WITH MEALS BEDTIME SC Last administered on 12/26/18 12:05; Admin Dose 8 UNIT; Start 12/23/18 at 07:35 Amlodipine Besylate (Norvasc) 10 mg DAILY PO Last administered on 12/26/18 08:56; Admin Dose 10 MG; Start 12/23/18 at 09:00 Ascorbic Acid (Vitamin C) 500 mg DAILY PO Last administered on 12/26/18 08:55; Admin Dose 500 MG; Start 12/23/18 at 09:00 Aspirin (Aspirin) 81 mg DAILY PO Last administered on 12/26/18 08:55; Admin Dose 81 MG; Start 12/23/18 at 09:00 Ergocalciferol (Drisdol) 50,000 unit Th@09 PO Last administered on 12/26/18at 10:34; Admin Dose 50,000 UNIT; Start 12/26/18 at 09:00 Famotidine (Pepcid) 20 mg DAILY PO Last administered on 12/26/18 08:55; Admin Dose 20 MG; Start 12/23/18 at 09:00 Ferrous Sulfate (Ferrous Sulfate (Ec)) 325 mg DAILY PO Last administered on 12/26/18 08:55; Admin Dose 325 MG; Start 12/23/18 at 09:00 Folic Acid (Folic Acid) 1 mg DAILY PO Last administered on 12/26/18 08:55; Admin Dose 1 MG; Start 12/23/18 at 09:00 Polyethylene Glycol (Miralax) 17 gm DAILY PRN N[place] CONSTIPATION; Start 12/22/18 at 22:30 Miscellaneous Information (* Miscellaneous Pharmacy Order) Pro-Stat 30ml BID BID PO ; Start 12/23/18 at 09:00 Clonidine (Catapres) 0.1 mg Q6H PRN PO ELEVATED BLOOD PRESSURE Last administered on 12/26/18at 11:55; Admin Dose 0.1 MG; Start 12/22/18 at 22:30 Labetalol HCl (Normodyne) 100 mg BID PRN PO ELEVATED BLOOD PRESSURE Last administered on 12/23/18at 04:55; Admin Dose 100 MG; Start 12/22/18 at 22:30 Miscellaneous Information 1 ea NOTE XX ; Start 12/22/18 at 23:30 Glucose (Glutose) 15 gm Q15M PRN PO DECREASED GLUCOSE; Start 12/22/18 at 23:30 Glucose (Glutose) 22.5 gm Q15M PRN PO DECREASED GLUCOSE; Start 12/22/18 at 23:30 Dextrose (D50w Syringe) 25 ml Q15M PRN IV DECREASED GLUCOSE; Start 12/22/18 at 23:30 Dextrose (D50w Syringe) 50 ml Q15M PRN IV DECREASED GLUCOSE; Start 12/22/18 at 23:30 Glucagon (Glucagen) 1 mg Q15M PRN IM DECREASED GLUCOSE; Start 12/22/18 at 23:30 Glucose (Glutose) 15 gm Q15M PRN BUCCAL DECREASED GLUCOSE; Start 12/22/18 at 23:30 Diagnostic Test (Pha) (Accu-Chek) 1 ea AC MEALS AND BEDTIME XX Last adminis tered on 12/26/18at 12:06; Admin Dose 1 EA; Start 12/22/18 at 23:21 [facility] This patient dietrich... PRN PRN XX WOUND CARE; Start 12/23/18 at 00:00 Docusate Sodium (Colace) 100 mg BID PO Last administered on 12/23/18 20:58; Admin Dose 100 MG; Start 12/23/18 at 09:00 Senna (Senokot) 1 tab HS PO Last administered on 12/23/18 20:58; Admin Dose 1 TAB; Start 12/23/18 at 21:00 Lactulose (Enulose) 20 gm DAILY PRN PO CONSTIPATION; Start 12/23/18 at 00:00 Bisacodyl (Dulcolax Supp) 10 mg DAILY PRN [place] CONSTIPATION; Start 12/23/18 at 00:00 Acetaminophen (Tylenol Tab) 650 mg Q4H PRN PO PAIN; Start 12/23/18 at 00:00 Labetalol HCl (Normodyne) 200 mg Q8 PO Last administered on 12/26/18 13:25; Admin Dose 200 MG; Start 12/23/18 at 14:00 Linagliptin (Tradjenta) 5 mg DAILY PO Last administered on 12/26/18 08:56; Admin Dose 5 MG; Start 12/23/18 at 09:30 Insulin Aspart (Novolog Insulin Pen) 7 unit WITH MEALS SC Last administered on 12/26/18 12:04; Admin Dose 7 UNIT; Start 12/26/18 at 12:00 Insulin Glargine (Lantus) 16 units DAILY@0800 SC ; Start 12/27/18 at 08:00 JYOTSNA ANNA NP Dec 26, 2018 16:45
[2018-12-26 19:52] VITALS: BP 147/73; PULSE 80; RESP 19
[2018-12-26] MEDS: SENNA TAB PO SCH (21:00)
[2018-12-26] MEDS: ATORVASTATIN 40 MG TAB PO SCH (22:24)
[2018-12-27] MEDS: ACCU-CHEK XX SCH ×5 (02:00→21:41)
[2018-12-27 07:30] VITALS: BP 182/79; PULSE 81; RESP 18
[2018-12-27] MEDS ORDERED: INSULIN GLARGINE [LANTus] (100 UNITS/ML) SYG SC SCH (08:00)
[2018-12-27] MEDS: LABETALOL 200 MG TAB PO SCH ×3 (08:00→21:46)
[2018-12-27] MEDS: INSULIN ASPART [NOVOLOG] 3 ML PEN SC SCH ×7 (08:02→21:40)
--- NOTE | 2018-12-27 08:29 | PN ---
Date/Time of Note Date/Time of Note DATE: 12/27/18 TIME: 08:28 Subjective AWAKE ALERT, MILD STUMP PAIN, NO PHANTOM PAIN Objective Vital Signs Date Temp Pulse Resp B/P (MAP) Pulse Ox O2 O2 Flow FiO2 Time Delivery Rate 12/26/18 98.6 80 19 147/73 99 Room Air 19:52 (97) Intake and Output 12/26/18 12/26/18 12/27/18 1515:00 23:00 07:00 IntakeIntake Total 1200 ml OutputOutput Total 801 ml 550 ml BalanceBalance 399 ml -550 ml Exam LUNGS CTA COR RRR GOOD MOTOR R STUMP DRSG DRY CLOF XT AND STANDING MOD/ MAX A Results/Medications Result Diagram: 12/25/1852 12/25/18 0652 Results 24 hrs Laboratory Tests Test 12/26/18 11:54 12/26/18 17:40 12/26/18 20:30 12/27/18 02:56 Bedside Glucose 261 H 219 205 210 Test 12/27/18 07:57 Bedside Glucose 253 H Medications Current Medications Atorvastatin Calcium (Lipitor) 40 mg HS PO Last administered on 12/26/18at 22:24; Admin Dose 40 MG; Start 12/23/18 at 21:00 Gabapentin (Neurontin) 300 mg TID PO Last administered on 12/26/18at 22:24; Admin Dose 300 MG; Start 12/23/18 at 09:00 Heparin Sodium (Porcine) (Heparin (5000 Units/1ml)) 5,000 unit Q8 SC Last administered on 12/26/18at 22:21; Admin Dose 5,000 UNIT; Start 12/22/18 at 22:00 Oxycodone HCl (Roxicodone) 5 mg Q4H PRN PO MODERATE PAIN LEVEL 4-6; Start 12/22/18 at 22:00 Oxycodone HCl (Roxicodone) 10 mg Q4H PRN PO SEVERE PAIN LEVEL 7-10; Start 12/22/18 at 22:00 Hydromorphone HCl (Dilaudid) 0.2 mg Q4H PRN IV BREAKTHROUGH PAIN Last administered on 12/23/18at 19:25; Admin Dose 0.2 MG; Start 12/22/18 at 22:00 Ondansetron HCl (Zofran Inj) 4 mg Q4H PRN IV NAUSEA AND/OR VOMITING; Start 12/22/18 at 22:00 Lactobacillus Acidophilus/ Rhamnosus (Culturelle) 1 cap TID PO Last administered on 12/26/18 22:36; Admin Dose 1 CAP; Start 12/23/18 at 09:00 Diphenhydramine HCl (Benadryl) 25 mg Q6H PRN PO ITCHING Last administered on 12/24/18 03:18; Admin Dose 25 MG; Start 12/22/18 at 22:00 Al Hydrox/Mg Hydrox/Simethicone (Mag-Al Plus) 30 ml Q4H PRN PO GASTROINTESTINAL UPSET; Start 12/22/18 at 22:00 Nystatin (Nystatin Powder) 1 applic BID TOP Last administered on 12/26/18 22:30; Admin Dose 1 APPLIC; Start 12/23/18 at 09:00 Diagnostic Test (Pha) (Accu-Chek) 1 ea 02 XX Last administered on 12/27/18 02:00; Admin Dose 1 EA; Start 12/23/18 at 02:00 Insulin Aspart (Novolog Insulin Pen) NOVOLOG *MODERATE* ALGORITHM WITH MEALS BEDTIME SC Last administered on 12/27/18 08:02; Admin Dose 6 UNIT; Start 12/23/18 at 07:35 Amlodipine Besylate (Norvasc) 10 mg DAILY PO Last administered on 12/26/18 08:56; Admin Dose 10 MG; Start 12/23/18 at 09:00 Ascorbic Acid (Vitamin C) 500 mg DAILY PO Last administered on 12/26/18 08:55; Admin Dose 500 MG; Start 12/23/18 at 09:00 Aspirin (Aspirin) 81 mg DAILY PO Last administered on 12/26/18 08:55; Admin Dose 81 MG; Start 12/23/18 at 09:00 Ergocalciferol (Drisdol) 50,000 unit Th@09 PO Last administered on 12/26/18 10:34; Admin Dose 50,000 UNIT; Start 12/26/18 at 09:00 Famotidine (Pepcid) 20 mg DAILY PO Last administered on 12/26/18 08:55; Admin Dose 20 MG; Start 12/23/18 at 09:00 Ferrous Sulfate (Ferrous Sulfate (Ec)) 325 mg DAILY PO Last administered on 3/14/19at 08:55; Admin Dose 325 MG; Start 12/23/18 at 09:00 Folic Acid (Folic Acid) 1 mg DAILY PO Last administered on 12/26/18 08:55; Admin Dose 1 MG; Start 12/23/18 at 09:00 Polyethylene Glycol (Miralax) 17 gm DAILY PRN NGT CONSTIPATION; Start 12/22/18 at 22:30 Miscellaneous Information (* Miscellaneous Pharmacy Order) Pro-Stat 30ml BID BID PO ; Start 12/23/18 at 09:00 Clonidine (Catapres) 0.1 mg Q6H PRN PO ELEVATED BLOOD PRESSURE Last administered on 12/26/18at 11:55; Admin Dose 0.1 MG; Start 12/22/18 at 22:30 Labetalol HCl (Normodyne) 100 mg BID PRN PO ELEVATED BLOOD PRESSURE Last administered on 12/23/18at 04:55; Admin Dose 100 MG; Start 12/22/18 at 22:30 Miscellaneous Information 1 ea NOTE XX ; Start 12/22/18 at 23:30 Glucose (Glutose) 15 gm Q15M PRN PO DECREASED GLUCOSE; Start 12/22/18 at 23:30 Glucose (Glutose) 22.5 gm Q15M PRN PO DECREASED GLUCOSE; Start 12/22/18 at 23:30 Dextrose (D50w Syringe) 25 ml Q15M PRN IV DECREASED GLUCOSE; Start 12/22/18 at 23:30 Dextrose (D50w Syringe) 50 ml Q15M PRN IV DECREASED GLUCOSE; Start 12/22/18 at 23:30 Glucagon (Glucagen) 1 mg Q15M PRN IM DECREASED GLUCOSE; Start 12/22/18 at 23:30 Glucose (Glutose) 15 gm Q15M PRN BUCCAL DECREASED GLUCOSE; Start 12/22/18 at 23:30 Diagnostic Test (Pha) (Accu-Chek) 1 ea AC MEALS AND BEDTIME XX Last admin istered on 12/26/18at 21:00; Admin Dose 1 EA; Start 12/22/18 at 23:21 Miscellaneous Information (Pending Santyl Order For Wound Care) This patient dietrich... PRN PRN XX WOUND CARE; Start 12/23/18 at 00:00 Docusate Sodium (Colace) 100 mg BID PO Last administered on 12/23/18at 20:58; Admin Dose 100 MG; Start 12/23/18 at 09:00 Senna (Senokot) 1 tab HS PO Last administered on 12/23/18at 20:58; Admin Dose 1 TAB; Start 12/23/18 at 21:00 Lactulose (Enulose) 20 gm DAILY PRN PO CONSTIPATION; Start 12/23/18 at 00:00 Bisacodyl (Dulcolax Supp) 10 mg DAILY PRN [place] CONSTIPATION; Start 12/23/18 at 00:00 Acetaminophen (Tylenol Tab) 650 mg Q4H PRN PO PAIN; Start 12/23/18 at 00:00 Labetalol HCl (Normodyne) 200 mg Q8 PO Last administered on 12/26/18at 22:25; Admin Dose 200 MG; Start 12/23/18 at 14:00 Linagliptin (Tradjenta) 5 mg DAILY PO Last administered on 12/26/18at 08:56; Admin Dose 5 MG; Start 12/23/18 at 09:30 Insulin Aspart (Novolog Insulin Pen) 7 unit WITH MEALS SC Last administered on 12/27/18at 08:03; Admin Dose 7 UNIT; Start 12/26/18 at 12:00 Insulin Glargine (Lantus) 16 units DAILY@0800 SC ; Start 12/27/18 at 08:00 Assessment/Plan Additional Assessment/Plan Rehab- Right [id number] amputation. Continue rehab treatment plan, patient making steady gains. STUMP DESENSITIZATION Acute and neuropathic pain. Osteomyelitis. Hypertension.MAINTAIN SBP <150 Uncontrolled diabetes mellitus type 2. Peripheral vascular disease. Anemia. Acute kidney injury. Hypocalcemia. Hypertension. NIKKIE JAVIER MD Dec 27, 2018 08:29
[2018-12-27] MEDS: HYDROmorphONE 0.5 MG/0.5 ML SYG IV PRN ×3 (08:48→18:15)
[2018-12-27] MEDS: GABAPENTIN 300 MG CAP PO SCH ×3 (08:55→21:32)
[2018-12-27] MEDS: HEPARIN 5,000 UNIT/1 ML VIAL SC SCH ×3 (08:55→21:47)
[2018-12-27] MEDS: DOCUSATE SODIUM 100 MG CAP PO SCH ×2 (08:55→21:00)
[2018-12-27] MEDS: ASCORBIC ACID 500 MG TAB PO SCH (08:56)
[2018-12-27] MEDS: LACTOBACILLUS RHAMNOSUS CAP PO SCH ×3 (08:56→21:32)
[2018-12-27] MEDS: AMLODIPINE 10 MG TAB PO SCH (08:56)
[2018-12-27] MEDS: FERROUS SULFATE (EC) 325 MG TAB PO SCH (08:56)
[2018-12-27] MEDS: FOLIC ACID 1 MG TAB PO SCH (08:56)
[2018-12-27] MEDS: FAMOTIDINE 20 MG TAB PO SCH (08:56)
[2018-12-27] MEDS: ASPIRIN 81 MG TAB PO SCH (08:56)
[2018-12-27] MEDS: LINAGLIPTIN 5 MG TABLET PO SCH (08:59)
[2018-12-27] MEDS: LISINOPRIL 10 MG TAB PO SCH (09:30)
--- NOTE | 2018-12-27 09:34 | PN ---
DATE: 12/27/2018 SUBJECTIVE: The patient is stable. No events overnight. OBJECTIVE: VITAL SIGNS: Blood pressure is 147/73, respirations 19, pulse 80, temperature 98.7. HEENT: Head is normocephalic. NECK: Supple. HEART: Regular rate. LUNGS: Show diminished breath sounds at the base. ABDOMEN: Soft, nontender to palpation. No rebound or guarding. EXTREMITIES: Negative for clubbing, cyanosis, no edema. DERMATOLOGIC: No rashes. MUSCULOSKELETAL: No joint effusion. NEUROLOGIC: No change in exam. MEDICATIONS: Reviewed. LABORATORY DATA: Reviewed. ASSESSMENT AND PLAN: 1. Right transtibial amputation. The patient is currently stable. Continue wound care. Continue d ressing changes. 2. Osteomyelitis of right foot. Continue current antibiotic therapy. Follow up with Infectious Dis ease. 3. Hypertension. Continue current blood pressure regimen. 4. Diabetes. Glucose levels remain elevated. Continue adjust insulin regimen. 5. Anemia. Monitor hemoglobin and hematocrit levels. 6. Mineral bone disorder, monitor calcium and phosphorus levels. 7. Neuropathy. Continue Neurontin. 8. Chronic pain syndrome. Continue current pain regimen. 9. Anxiety disorder. Continue statin therapy. 10. Gastrointestinal and deep vein thrombosis prophylaxis. Dictated By: ISELA BARAJAS DO NR/NTS Conf#: [id number] DID#: [id number] CC: DREW CHAMPAGNE DO; MARYANN JAVIER MD; [employer];*EndCC*
[2018-12-27] MEDS: NYSTATIN 30 GM POWDER BTL TOP SCH ×2 (12:12→21:42)
[2018-12-27 14:00] VITALS: BP 145/77; PULSE 80; RESP 18
--- NOTE | 2018-12-27 14:49 | CONS ---
Assessment/Plan Assessment/Plan Hospital Course (Demo Recall) No acute events, alert, feels good, no fevers PHYSICAL EXAMINATION: GENERAL: This is obese well-developed elderly woman who is alert, . HEENT: Head is atraumatic, normocephalic. Sclerae are anicteric. Buccal mucosa is pink. NECK: Supple. CHEST: Rise symmetrical. Breath sounds clear. HEART: S1, S2. ABDOMEN: Obese, soft. Bowel tones are present. EXTREMITIES: Without cyanosis. Right lower extremity stump wrapped, immobilizer present Assessment: 1. Funguria, consistent with colonization 2. History of right lower extremity infection with ongoing osteomyelitis status post below-knee amputation 3. Diabetes with diabetic neuropathy 4. Hypertension Plan: Remains stable, off abx, monitor right lower extremity stump for infection and necrosis==> patient has an area of demarcation below incision Discussed with RN Consultation Date/Type/Reason Admit Date/Time Dec 22, 2018 at 20:54 Initial Consult Date Type of Consult id Date/Time of Note DATE: 12/27/18 TIME: 14:48 Exam/Review of Systems Exam Vitals Vital Signs Date Temp Pulse Resp B/P (MAP) Pulse Ox O2 O2 Flow FiO2 Time Delivery Rate 12/27/18 98.0 81 18 182/79 95 Room Air 07:30 (113) Intake and Output 12/26/18 12/26/18 12/27/18 1515:00 23:00 07:00 IntakeIntake Total 1200 ml OutputOutput Total 801 ml 550 ml BalanceBalance 399 ml -550 ml Results Result Diagram: 12/25/18 0652 12/25/18 0652 Results 24hrs Laboratory Tests Test 12/26/18 17:40 12/26/18 20:30 12/27/18 02:56 12/27/18 07:57 Bedside Glucose 219 205 210 253 H Test 12/27/18 12:11 Bedside Glucose 244 H Medications Medication Current Medications Atorvastatin Calcium (Lipitor) 40 mg HS PO Last administered on 12/26/18at 2 2:24; Admin Dose 40 MG; Start 12/23/18 at 21:00 Gabapentin (Neurontin) 300 mg TID PO Last administered on 12/27/18at 08:55; Admin Dose 300 MG; Start 12/23/18 at 09:00 Heparin Sodium (Porcine) (Heparin (5000 Units/1ml)) 5,000 unit Q8 SC Last administered on 12/27/18 08:55; Admin Dose 5,000 UNIT; Start 12/22/18 at 22:00 Oxycodone HCl (Roxicodone) 5 mg Q4H PRN PO MODERATE PAIN LEVEL 4-6; Start at 22:00 Oxycodone HCl (Roxicodone) 10 mg Q4H PRN PO SEVERE PAIN LEVEL 7-10; Start 12/22/18 at 22:00 Hydromorphone HCl (Dilaudid) 0.2 mg Q4H PRN IV BREAKTHROUGH PAIN Last administered on 12/27/18 12:21; Admin Dose 0.2 MG; Start 12/22/18 at 22:00 Ondansetron HCl (Zofran Inj) 4 mg Q4H PRN IV NAUSEA AND/OR VOMITING; Start 12/22/18 at 22:00 Lactobacillus Acidophilus/ Rhamnosus (Culturelle) 1 cap TID PO Last administered on 12/27/18 08:56; Admin Dose 1 CAP; Start 12/23/18 at 09:00 Diphenhydramine HCl (Benadryl) 25 mg Q6H PRN PO ITCHING Last administered on 12/24/18 03:18; Admin Dose 25 MG; Start 12/22/18 at 22:00 Al Hydrox/Mg Hydrox/Simethicone (Mag-Al Plus) 30 ml Q4H PRN PO GASTROINTESTINAL UPSET; Start 12/22/18 at 22:00 Nystatin (Nystatin Powder) 1 applic BID TOP Last administered on 12/27/18 12:12; Admin Dose 1 APPLIC; Start 12/23/18 at 09:00 Diagnostic Test (Pha) (Accu-Chek) 1 ea 02 XX Last administered on 12/27/18 02:00; Admin Dose 1 EA; Start 12/23/18 at 02:00 Insulin Aspart (Novolog Insulin Pen) NOVOLOG *MODERATE* ALGORITHM WITH MEALS BEDTIME SC Last administered on 12/27/18 12:18; Admin Dose 6 UNIT; Start 12/23/18 at 07:35 Amlodipine Besylate (Norvasc) 10 mg DAILY PO Last administered on 12/27/18 08:56; Admin Dose 10 MG; Start 12/23/18 at 09:00 Ascorbic Acid (Vitamin C) 500 mg DAILY PO Last administered on 12/27/18 08:56; Admin Dose 500 MG; Start 12/23/18 at 09:00 Aspirin (Aspirin) 81 mg DAILY PO Last administered on 12/27/18 08:56; Admin Dose 81 MG; Start 12/23/18 at 09:00 Ergocalciferol (Drisdol) 50,000 unit Th@09 PO Last administered on 12/26/18 10:34; Admin Dose 50,000 UNIT; Start 12/26/18 at 09:00 Famotidine (Pepcid) 20 mg DAILY PO Last administered on 12/27/18 08:56; Admin Dose 20 MG; Start 12/23/18 at 09:00 Ferrous Sulfate (Ferrous Sulfate (Ec)) 325 mg DAILY PO Last administered on 12/27/18 08:56; Admin Dose 325 MG; Start 12/23/18 at 09:00 Folic Acid (Folic Acid) 1 mg DAILY PO Last administered on 12/27/18 08:56; Admin Dose 1 MG; Start 12/23/18 at 09:00 Polyethylene Glycol (Miralax) 17 gm DAILY PRN N[place] CONSTIPATION; Start 12/22/18 at 22:30 Miscellaneous Information (* Miscellaneous Pharmacy Order) Pro-Stat 30ml BID BID PO ; Start 12/23/18 at 09:00 Clonidine (Catapres) 0.1 mg Q6H PRN PO ELEVATED BLOOD PRESSURE Last administered on 12/26/18at 11:55; Admin Dose 0.1 MG; Start 12/22/18 at 22:30 Labetalol HCl (Normodyne) 100 mg BID PRN PO ELEVATED BLOOD PRESSURE Last administered on 12/23/18at 04:55; Admin Dose 100 MG; Start 12/22/18 at 22:30 Miscellaneous Information 1 ea NOTE XX ; Start 12/22/18 at 23:30 Glucose (Glutose) 15 gm Q15M PRN PO DECREASED GLUCOSE; Start 12/22/18 at 23:30 Glucose (Glutose) 22.5 gm Q15M PRN PO DECREASED GLUCOSE; Start 12/22/18 at 23:30 Dextrose (D50w Syringe) 25 ml Q15M PRN IV DECREASED GLUCOSE; Start 12/22/18 at 23:30 Dextrose (D50w Syringe) 50 ml Q15M PRN IV DECREASED GLUCOSE; Start 12/22/18 at 23:30 Glucagon (Glucagen) 1 mg Q15M PRN IM DECREASED GLUCOSE; Start 12/22/18 at 23:30 Glucose (Glutose) 15 gm Q15M PRN BUCCAL DECREASED GLUCOSE; Start 12/22/18 at 23:30 Diagnostic Test (Pha) (Accu-Chek) 1 ea AC MEALS AND BEDTIME XX Last administered on 12/27/18at 12:13; Admin Dose 1 EA; Start 12/22/18 at 23:21 Miscellaneous Information [facility] This patient dietrich... PRN PRN XX WOUND CARE; Start 12/23/18 at 00:00 Docusate Sodium (Colace) 100 mg BID PO Last administered on 12/27/18at 08:55; Admin Dose 100 MG; Start 12/23/18 at 09:00 Senna (Senokot) 1 tab HS PO Last administered on 12/23/18at 20:58; Admin Dose 1 TAB; Start 12/23/18 at 21:00 Lactulose (Enulose) 20 gm DAILY PRN PO CONSTIPATION; Start 12/23/18 at 00:00 Bisacodyl (Dulcolax Supp) 10 mg DAILY PRN [place] CONSTIPATION; Start 12/23/18 at 00:00 Acetaminophen (Tylenol Tab) 650 mg Q4H PRN PO PAIN; Start 12/23/18 at 00:00 Linagliptin (Tradjenta) 5 mg DAILY PO Last administered on 12/27/18at 08:59; Admin Dose 5 MG; Start 12/23/18 at 09:30 Insulin Aspart (Novolog Insulin Pen) 10 unit WITH MEALS SC Last administered on 12/27/18at 12:20; Admin Dose 10 UNIT; Start 12/27/18 at 12:00 Insulin Glargine (Lantus) 20 units DAILY@0800 SC ; Start 12/28/18 at 08:00 Labetalol HCl (Normodyne) 400 mg Q8 PO ; Start 12/27/18 at 14:00 Lisinopril (Zestril) 10 mg DAILY PO ; Start 12/27/18 at 09:30 JYOTSNA ANNA NP Dec 27, 2018 14:49
[2018-12-27 20:00] VITALS: BP 152/82; PULSE 82; RESP 18
[2018-12-27] MEDS: SENNA TAB PO SCH (21:00)
[2018-12-27] MEDS: ATORVASTATIN 40 MG TAB PO SCH (21:32)
[2018-12-27 21:46] VITALS: BP 150/70; PULSE 85; RESP 18
[2018-12-28 02:00] VITALS: BP 138/75; PULSE 78; RESP 18
[2018-12-28] MEDS: ACCU-CHEK XX SCH ×5 (02:40→21:25)
[2018-12-28] MEDS: LABETALOL 200 MG TAB PO SCH ×3 (06:46→22:36)
[2018-12-28] MEDS: HEPARIN 5,000 UNIT/1 ML VIAL SC SCH ×3 (06:49→21:26)
[2018-12-28 07:00] VITALS: BP 146/65; PULSE 84; RESP 20
--- NOTE | 2018-12-28 07:12 | PN ---
Date/Time of Note Date/Time of Note DATE: 12/28/18 TIME: 07:11 Subjective AWAKE ALEERT, MILD PAIN PO GOOD Objective Vital Signs Date Temp Pulse Resp B/P (MAP) Pulse Ox O2 O2 Flow FiO2 Time Delivery Rate 12/28/18 98.2 78 18 138/75 95 Room Air 02:00 (96) Intake and Output 12/27/18 12/27/18 12/28/18 1515:00 23:00 07:00 IntakeIntake Total 1200 ml 1200 ml OutputOutput Total 150 ml 403 ml BalanceBalance -150 ml 797 ml 1200 ml Exam LUNGS CTA COR RRR MOTOR GOOD CLOF XT AND STAND MOD/MAX A Results/Medications Result Diagram: 12/25/1852 12/25/18651 Results 24 hrs Laboratory Tests Test 12/27/18 07:57 12/27/18 12:11 12/27/18 17:29 12/27/18 21:38 Bedside Glucose 253 H 244 H 212 201 Test 12/28/18 02:13 Bedside Glucose 158 Medications Current Medications Atorvastatin Calcium (Lipitor) 40 mg HS PO Last administered on 12/27/18at 21:32; Admin Dose 40 MG; Start 12/23/18 at 21:00 Gabapentin (Neurontin) 300 mg TID PO Last administered on 12/27/18at 21:32; Admin Dose 300 MG; Start 12/23/18 at 09:00 Heparin Sodium (Porcine) (Heparin (5000 Units/1ml)) 5,000 unit Q8 SC Last administered on 12/28/18at 06:49; Admin Dose 5,000 UNIT; Start 12/22/18 at 22:00 Oxycodone HCl (Roxicodone) 5 mg Q4H PRN PO MODERATE PAIN LEVEL 4-6; Start 12/22/18 at 22:00 Oxycodone HCl (Roxicodone) 10 mg Q4H PRN PO SEVERE PAIN LEVEL 7-10; Start 12/22/18 at 22:00 Hydromorphone HCl (Dilaudid) 0.2 mg Q4H PRN IV BREAKTHROUGH PAIN Last administe red on 12/27/18at 18:15; Admin Dose 0.2 MG; Start 12/22/18 at 22:00 Ondansetron HCl (Zofran Inj) 4 mg Q4H PRN IV NAUSEA AND/OR VOMITING; Start 12/22/18 at 22:00 Lactobacillus Acidophilus/ Rhamnosus (Culturelle) 1 cap TID PO Last administered on 12/27/18 21:32; Admin Dose 1 CAP; Start 12/23/18 at 09:00 Diphenhydramine HCl (Benadryl) 25 mg Q6H PRN PO ITCHING Last administered on 12/24/18 03:18; Admin Dose 25 MG; Start 12/22/18 at 22:00 Al Hydrox/Mg Hydrox/Simethicone (Mag-Al Plus) 30 ml Q4H PRN PO GASTROINTESTINAL UPSET; Start 12/22/18 at 22:00 Nystatin (Nystatin Powder) 1 applic BID TOP Last administered on 12/27/18 21:42; Admin Dose 1 APPLIC; Start 12/23/18 at 09:00 Diagnostic Test (Pha) (Accu-Chek) 1 ea 02 XX Last administered on 12/28/18 02:40; Admin Dose 1 EA; Start 12/23/18 at 02:00 Insulin Aspart (Novolog Insulin Pen) NOVOLOG *MODERATE* ALGORITHM WITH MEALS BEDTIME SC Last administered on 12/27/18 21:40; Admin Dose 1 UNIT; Start 12/23/18 at 07:35 Amlodipine Besylate (Norvasc) 10 mg DAILY PO Last administered on 12/27/18 08:56; Admin Dose 10 MG; Start 12/23/18 at 09:00 Ascorbic Acid (Vitamin C) 500 mg DAILY PO Last administered on 12/27/18 08:56; Admin Dose 500 MG; Start 12/23/18 at 09:00 Aspirin (Aspirin) 81 mg DAILY PO Last administered on 12/27/18 08:56; Admin Dose 81 MG; Start 12/23/18 at 09:00 Ergocalciferol (Drisdol) 50,000 unit Th@09 PO Last administered on 12/26/18 10:34; Admin Dose 50,000 UNIT; Start 12/26/18 at 09:00 Famotidine (Pepcid) 20 mg DAILY PO Last administered on 12/27/18 08:56; Admin Dose 20 MG; Start 12/23/18 at 09:00 Ferrous Sulfate (Ferrous Sulfate (Ec)) 325 mg DAILY PO Last administered on 12/27/18 08:56; Admin Dose 325 MG; Start 12/23/18 at 09:00 Folic Acid (Folic Acid) 1 mg DAILY PO Last administered on 12/27/18 08:56; Admin Dose 1 MG; Start 12/23/18 at 09:00 Polyethylene Glycol (Miralax) 17 gm DAILY PRN NGT CONSTIPATION; Start 12/22/18 at 22:30 Clonidine (Catapres) 0.1 mg Q6H PRN PO ELEVATED BLOOD PRESSURE Last administered on 12/26/18 11:55; Admin Dose 0.1 MG; Start 12/22/18 at 22:30 Labetalol HCl (Normodyne) 100 mg BID PRN PO ELEVATED BLOOD PRESSURE Last administered on 12/23/18 04:55; Admin Dose 100 MG; Start 12/22/18 at 22:30 Miscellaneous Information 1 ea NOTE XX ; Start 12/22/18 at 23:30 Glucose (Glutose) 15 gm Q15M PRN PO DECREASED GLUCOSE; Start 12/22/18 at 23:30 Glucose (Glutose) 22.5 gm Q15M PRN PO DECREASED GLUCOSE; Start 12/22/18 at 23:30 Dextrose (D50w Syringe) 25 ml Q15M PRN IV DECREASED GLUCOSE; Start 12/22/18 at 23:30 Dextrose (D50w Syringe) 50 ml Q15M PRN IV DECREASED GLUCOSE; Start 12/22/18 at 23:30 Glucagon (Glucagen) 1 mg Q15M PRN IM DECREASED GLUCOSE; Start 12/22/18 at 23:30 Glucose (Glutose) 15 gm Q15M PRN BUCCAL DECREASED GLUCOSE; Start 12/22/18 at 23:30 Diagnostic Test (Pha) (Accu-Chek) 1 ea AC MEALS AND BEDTIME XX Last administered on 12/27/18at 21:41; Admin Dose 1 EA; Start 12/22/18 at 23:21 Miscellaneous Information (Pending [facility] Order For Wound Care) This patient dietrich... PRN PRN XX WOUND CARE; Start 12/23/18 at 00:00 Docusate Sodium (Colace) 100 mg BID PO Last administered on 12/27/18at 08:55; Admin Dose 100 MG; Start 12/23/18 at 09:00 Senna (Senokot) 1 tab HS PO Last administered on 12/23/18at 20:58; Admin Dose 1 TAB; Start 12/23/18 at 21:00 Lactulose (Enulose) 20 gm DAILY PRN PO CONSTIPATION; Start 12/23/18 at 00:00 Bisacodyl (Dulcolax Supp) 10 mg DAILY PRN [place] CONSTIPATION; Start 12/23/18 at 00:00 Acetaminophen (Tylenol Tab) 650 mg Q4H PRN PO PAIN; Start 12/23/18 at 00:00 Linagliptin (Tradjenta) 5 mg DAILY PO Last administered on 12/27/18at 08:59; Admin Dose 5 MG; Start 12/23/18 at 09:30 Insulin Aspart (Novolog Insulin Pen) 10 unit WITH MEALS SC Last administered on 12/27/18at 17:33; Admin Dose 10 UNIT; Start 12/27/18 at 12:00 Insulin Glargine (Lantus) 20 units DAILY@0800 SC ; Start 12/28/18 at 08:00 Labetalol HCl (Normodyne) 400 mg Q8 PO Last administered on 12/28/18at 06:46; Admin Dose 400 MG; Start 12/27/18 at 14:00 Lisinopril (Zestril) 10 mg DAILY PO ; Start 12/27/18 at 09:30 Assessment/Plan Additional Assessment/Plan Rehab- Right [id number] amputation. Continue rehab treatment plan, patient making steady gains. STUMP DESENSITIZATION Acute and neuropathic pain. Osteomyelitis. Hypertension.MAINTAIN SBP <150 Uncontrolled diabetes mellitus type 2. Peripheral vascular disease. Anemia. Acute kidney injury. Hypocalcemia. Hypertension.LABILE BPS MEDS ADJUSTED PER NIKKIE WHITE MD Dec 28, 2018 07:12
[2018-12-28] MEDS: INSULIN ASPART [NOVOLOG] 3 ML PEN SC SCH ×7 (08:19→21:00)
[2018-12-28] MEDS: INSULIN GLARGINE [LANTus] (100 UNITS/ML) SYG SC SCH (08:21)
[2018-12-28] MEDS: HYDROmorphONE 0.5 MG/0.5 ML SYG IV PRN ×3 (08:22→17:55)
[2018-12-28] MEDS: DOCUSATE SODIUM 100 MG CAP PO SCH ×2 (09:32→21:00)
[2018-12-28] MEDS: ASCORBIC ACID 500 MG TAB PO SCH (09:32)
[2018-12-28] MEDS: AMLODIPINE 10 MG TAB PO SCH (09:32)
[2018-12-28] MEDS: ASPIRIN 81 MG TAB PO SCH (09:33)
[2018-12-28] MEDS: LISINOPRIL 10 MG TAB PO SCH (09:33)
[2018-12-28] MEDS: LABETALOL 100 MG TAB PO PRN (09:33)
[2018-12-28] MEDS: FAMOTIDINE 20 MG TAB PO SCH (09:33)
[2018-12-28] MEDS: FERROUS SULFATE (EC) 325 MG TAB PO SCH (09:33)
[2018-12-28] MEDS: NYSTATIN 30 GM POWDER BTL TOP SCH ×2 (09:34→21:31)
[2018-12-28] MEDS: LACTOBACILLUS RHAMNOSUS CAP PO SCH ×3 (09:34→22:36)
[2018-12-28] MEDS: FOLIC ACID 1 MG TAB PO SCH (09:34)
[2018-12-28] MEDS: GABAPENTIN 300 MG CAP PO SCH ×3 (09:42→21:21)
[2018-12-28] MEDS: LINAGLIPTIN 5 MG TABLET PO SCH ×2 (09:42→10:24)
--- NOTE | 2018-12-28 11:04 | PN ---
Date/Time of Note Date/Time of Note DATE: 12/28/18 TIME: 11:04 Assessment/Plan VTE Prophylaxis Risk score (from Ns)>0 risk: 7 SCD applied (from [facility]): No SCD contraindicated: other Pharmacological prophylaxis: other Assessment/Plan Hospital Course medicine follow up SUBJECTIVE: The patient is stable. No events overnight. d/w Dr Mancera OBJECTIVE: HEENT: Head is normocephalic. NECK: Supple. HEART: Regular rate. LUNGS: Show diminished breath sounds at the base. ABDOMEN: Soft, nontender to palpation. No rebound or guarding. EXTREMITIES: Negative for clubbing, cyanosis, no edema. DERMATOLOGIC: No rashes. MUSCULOSKELETAL: No joint effusion. NEUROLOGIC: No change in exam. MEDICATIONS: Reviewed. LABORATORY DATA: Reviewed. ASSESSMENT AND PLAN: 1. Right transtibial amputation. The patient is currently stable. Continue wound care. Continue dressing changes. 2. Osteomyelitis of right foot. Continue current antibiotic therapy. Follow up with Infectious Disease. 3. Hypertension. Continue current blood pressure regimen. 4. Diabetes. Glucose levels remain elevated. Continue adjust insulin regimen. 5. Anemia. Monitor hemoglobin and hematocrit levels. 6. Mineral bone disorder, monitor calcium and phosphorus levels. 7. Neuropathy. Continue Neurontin. 8. Chronic pain syndrome. Continue current pain regimen. 9. Anxiety disorder. Continue statin therapy. 10. Gastrointestinal and deep vein thrombosis prophylaxis. Result Diagram: 12/28/18 0612 12/28/18 0612 Results 24hrs Laboratory Tests Test 12/27/18 12:11 12/27/18 17:29 12/27/18 21:38 12/28/18 02:13 Bedside Glucose 244 H 212 201 158 Test 12/28/18 06:12 12/28/18 08:14 White Blood Count 7.2 Red Blood Count 3.42 L Hemoglobin 9.9 L Hematocrit 32.8 L Mean Corpuscular 95.9 Volume Mean Corpuscular 28.9 L Hemoglobin Mean Corpuscular 30.2 L Hemoglobin Concent Red Cell 15.1 H Distribution Width Platelet Count 330 # Mean Platelet Volume 10.6 H Immature 0.400 Granulocytes % Neutrophils % 57.6 Lymphocytes % 24.3 Monocytes % 10.4 Eosinophils % 6.9 Basophils % 0.4 Nucleated Red Blood 0.0 Cells % Immature 0.030 Granulocytes # Neutrophils # 4.2 Lymphocytes # 1.8 Monocytes # 0.8 Eosinophils # 0.5 Basophils # 0.0 Nucleated Red Blood 0.0 Cells # Sodium Level 141 Potassium Level 4.0 Chloride Level 104 Carbon Dioxide Level 32 H Anion Gap 5 Blood Urea Nitrogen 25 H Creatinine 1.53 H Est Glomerular 35 L Filtrat Rate mL/min Glucose Level 188 Calcium Level 8.6 Phosphorus Level 4.6 Magnesium Level 1.9 Bedside Glucose 196 Exam/Review of Systems Exam Vitals Vital Signs Date Temp Pulse Resp B/P (MAP) Pulse Ox O2 O2 Flow FiO2 Time Delivery Rate 12/28/18 98.0 84 20 146/65 94 Room Air 07:00 (92) Intake and Output 12/27/18 12/27/18 12/28/18 1515:00 23:00 07:00 IntakeIntake Total 1200 ml 1200 ml OutputOutput Total 150 ml 403 ml BalanceBalance -150 ml 797 ml 1200 ml Results Results 24hrs Laboratory Tests Test 12/27/18 12:11 12/27/18 17:29 12/27/18 21:38 12/28/18 02:13 Bedside Glucose 244 H 212 201 158 Test 12/28/18 06:12 12/28/18 08:14 White Blood Count 7.2 Red Blood Count 3.42 L Hemoglobin 9.9 L Hematocrit 32.8 L Mean Corpuscular 95.9 Volume Mean Corpuscular 28.9 L Hemoglobin Mean Corpuscular 30.2 L Hemoglobin Concent Red Cell 15.1 H Distribution Width Platelet Count 330 # Mean Platelet Volume 10.6 H Immature 0.400 Granulocytes % Neutrophils % 57.6 Lymphocytes % 24.3 Monocytes % 10.4 Eosinophils % 6.9 Basophils % 0.4 Nucleated Red Blood 0.0 Cells % Immature 0.030 Granulocytes # Neutrophils # 4.2 Lymphocytes # 1.8 Monocytes # 0.8 Eosinophils # 0.5 Basophils # 0.0 Nucleated Red Blood 0.0 Cells # Sodium Level 141 Potassium Level 4.0 Chloride Level 104 Carbon Dioxide Level 32 H Anion Gap 5 Blood Urea Nitrogen 25 H Creatinine 1.53 H Est Glomerular 35 L Filtrat Rate mL/min Glucose Level 188 Calcium Level 8.6 Phosphorus Level 4.6 Magnesium Level 1.9 Bedside Glucose 196 Medications Medication Current Medications Atorvastatin Calcium (Lipitor) 40 mg HS PO Last administered on 12/27/18at 21:32; Admin Dose 40 MG; Start 12/23/18 at 21:00 Gabapentin (Neurontin) 300 mg TID PO Last administered on 12/28/18 09:42; Admin Dose 300 MG; Start 12/23/18 at 09:00 Heparin Sodium (Porcine) (Heparin (5000 Units/1ml)) 5,000 unit Q8 SC Last administered on 12/28/18 06:49; Admin Dose 5,000 UNIT; Start 12/22/18 at 22:00 Oxycodone HCl (Roxicodone) 5 mg Q4H PRN PO MODERATE PAIN LEVEL 4-6; Start 12/22/18 at 22:00 Oxycodone HCl (Roxicodone) 10 mg Q4H PRN PO SEVERE PAIN LEVEL 7-10; Start 12/22/18 at 22:00 Hydromorphone HCl (Dilaudid) 0.2 mg Q4H PRN IV BREAKTHROUGH PAIN Last administered on 12/28/18 08:22; Admin Dose 0.2 MG; Start 12/22/18 at 22:00 Ondansetron HCl (Zofran Inj) 4 mg Q4H PRN IV NAUSEA AND/OR VOMITING; Start 12/22/18 at 22:00 Lactobacillus Acidophilus/ Rhamnosus (Culturelle) 1 cap TID PO Last administered on 12/28/18 09:34; Admin Dose 1 CAP; Start 12/23/18 at 09:00 Diphenhydramine HCl (Benadryl) 25 mg Q6H PRN PO ITCHING Last administered on 12/24/18at 03:18; Admin Dose 25 MG; Start 12/22/18 at 22:00 Al Hydrox/Mg Hydrox/Simethicone (Mag-Al Plus) 30 ml Q4H PRN PO GASTROINTESTINAL UPSET; Start 12/22/18 at 22:00 Nystatin (Nystatin Powder) 1 applic BID TOP Last administered on 12/28/18 09:34; Admin Dose 1 APPLIC; Start 12/23/18 at 09:00 Diagnostic Test (Pha) (Accu-Chek) 1 ea 02 XX Last administered on 12/28/18 02:40; Admin Dose 1 EA; Start 12/23/18 at 02:00 Insulin Aspart (Novolog Insulin Pen) NOVOLOG *MODERATE* ALGORITHM WITH MEALS BEDTIME SC Last administered on 12/28/18 08:19; Admin Dose 4 UNIT; Start 12/23/18 at 07:35 Amlodipine Besylate (Norvasc) 10 mg DAILY PO Last administered on 12/28/18 09:32; Admin Dose 10 MG; Start 12/23/18 at 09:00 Ascorbic Acid (Vitamin C) 500 mg DAILY PO Last administered on 12/28/18 09:32; Admin Dose 500 MG; Start 12/23/18 at 09:00 Aspirin (Aspirin) 81 mg DAILY PO Last administered on 12/28/18 09:33; Admin Dose 81 MG; Start 12/23/18 at 09:00 Ergocalciferol (Drisdol) 50,000 unit @09 PO Last administered on 12/26/18 10:34; Admin Dose 50,000 UNIT; Start 12/26/18 at 09:00 Famotidine (Pepcid) 20 mg DAILY PO Last administered on 12/28/18 09:33; Admin Dose 20 MG; Start 12/23/18 at 09:00 Ferrous Sulfate (Ferrous Sulfate (Ec)) 325 mg DAILY PO Last administered on 12/28/18 09:33; Admin Dose 325 MG; Start 12/23/18 at 09:00 Folic Acid (Folic Acid) 1 mg DAILY PO Last administered on 12/28/18 09:34; Admin Dose 1 MG; Start 12/23/18 at 09:00 Polyethylene Glycol (Miralax) 17 gm DAILY PRN NGT CONSTIPATION; Start 12/22/18 at 22:30 Clonidine (Catapres) 0.1 mg Q6H PRN PO ELEVATED BLOOD PRESSURE Last administered on 12/26/18 11:55; Admin Dose 0.1 MG; Start 12/22/18 at 22:30 Labetalol HCl (Normodyne) 100 mg BID PRN PO ELEVATED BLOOD PRESSURE Last administered on 12/28/18 09:33; Admin Dose 100 MG; Start 12/22/18 at 22:30 Miscellaneous Information 1 ea NOTE XX ; Start 12/22/18 at 23:30 Glucose (Glutose) 15 gm Q15M PRN PO DECREASED GLUCOSE; Start 12/22/18 at 23:30 Glucose (Glutose) 22.5 gm Q15M PRN PO DECREASED GLUCOSE; Start 12/22/18 at 23:30 Dextrose (D50w Syringe) 25 ml Q15M PRN IV DECREASED GLUCOSE; Start 12/22/18 at 23:30 Dextrose (D50w Syringe) 50 ml Q15M PRN IV DECREASED GLUCOSE; Start 12/22/18 at 23:30 Glucagon (Glucagen) 1 mg Q15M PRN IM DECREASED GLUCOSE; Start 12/22/18 at 23:30 Glucose (Glutose) 15 gm Q15M PRN BUCCAL DECREASED GLUCOSE; Start 12/22/18 at 23:30 Diagnostic Test (Pha) (Accu-Chek) 1 ea AC MEALS AND BEDTIME XX Last administered on 12/28/18at 07:05; Admin Dose 1 EA; Start 12/22/18 at 23:21 Miscellaneous Information (Pending [facility] Order For Wound Care) This patient dietrich... PRN PRN XX WOUND CARE; Start 12/23/18 at 00:00 Docusate Sodium (Colace) 100 mg BID PO Last administered on 12/28/18at 09:32; Admin Dose 100 MG; Start 12/23/18 at 09:00 Senna (Senokot) 1 tab HS PO Last administered on 12/23/18at 20:58; Admin Dose 1 TAB; Start 12/23/18 at 21:00 Lactulose (Enulose) 20 gm DAILY PRN PO CONSTIPATION Last administered on 12/28/18at 09:30; Admin Dose 20 GM; Start 12/23/18 at 00:00 Bisacodyl (Dulcolax Supp) 10 mg DAILY PRN [place] CONSTIPATION; Start 12/23/18 at 00:00 Acetaminophen (Tylenol Tab) 650 mg Q4H PRN PO PAIN; Start 12/23/18 at 00:00 Linagliptin (Tradjenta) 5 mg DAILY PO Last administered on 12/28/18at 10:24; Admin Dose 5 MG; Start 12/23/18 at 09:30 Insulin Aspart (Novolog Insulin Pen) 10 unit WITH MEALS SC Last administered on 12/28/18at 08:20; Admin Dose 10 UNIT; Start 12/27/18 at 12:00 Insulin Glargine (Lantus) 20 units DAILY@0800 SC Last administered on 12/28/18at 08:21; Admin Dose 20 UNITS; Start 12/28/18 at 08:00 Labetalol HCl (Normodyne) 400 mg Q8 PO Last administered on 12/28/18at 06:46; Admin Dose 400 MG; Start 12/27/18 at 14:00 Lisinopril (Zestril) 10 mg DAILY PO Last administered on 12/28/18at 09:33; Admin Dose 10 MG; Start 12/27/18 at 09:30 DREW CHAMPAGNE DO Dec 28, 2018 11:04
--- NOTE | 2018-12-28 13:56 | CONS ---
Assessment/Plan Assessment/Plan Hospital Course (Demo Recall) ID PROGRESS NOTE CURRENT ABX: DAY # OFF ABX 24H INTERVAL SUMMARY * Awake, alert, oriented == good historian, denies f/c/n/v/d/dysuria/CP/SOB * Right leg stump dressing removed -- fox present, no drainage, no erythema, no evidence of infection/no necrosis * Left leg mild edema -- Charcot foot, pre-tibial skin abrasion clean DIAGNOSTIC IMAGING * CXR: MICRO/OTHER * 12/23/2018 URINE CX: URINE CULTURE Final Organism 1 HOLLY GLABRATA COLONY COUNT >100,000 CFU/ml PHYSICAL EXAMINATION: GENERAL: VSS HEENT: AT, NC, anicteric NECK: Supple, CHEST: Equal chest rise bilaterally, without dyspnea on observation HEART: Pulse RRR ABDOMEN: Soft / NT EXTREMITIES: Warm, dry Right leg stump dressing removed -- fox present, no drainage, no erythema, no evidence of infection/no necrosis * Left leg mild edema -- Charcot foot, pre-tibial skin abrasion clean SKIN: No rash, no diaphoresis ID ASSESSMENT 58 yo F admit with: 1. Funguria, consistent with colonization 2. History of right lower extremity infection with ongoing osteomyelitis status post below-knee amputation 3. Diabetes with diabetic neuropathy 4. Hypertension (-)MRSA NARES ABX ALLERGIES: PCN INVASIVES: PIV CURRENT ABX: DAY # OFF ABX ID RECOMMENDATIONS/PLAN: 1. Continue to monitor OFF ABX for stump necrosis. * Patient tells me fox to be removed soon. . Consultation Date/Type/Reason Admit Date/Time Dec 22, 2018 at 20:54 Initial Consult Date Date/Time of Note DATE: 12/28/18 TIME: 13:55 Exam/Review of Systems Exam Vitals Vital Signs Date Temp Pulse Resp B/P (MAP) Pulse Ox O2 O2 Flow FiO2 Time Delivery Rate 12/28/18 98.0 84 20 146/65 94 Room Air 07:00 (92) Intake and Output 12/27/18 12/27/18 12/28/18 1515:00 23:00 07:00 IntakeIntake Total 1200 ml 1200 ml OutputOutput Total 150 ml 403 ml BalanceBalance -150 ml 797 ml 1200 ml Results Result Diagram: 12/28/18 0612 12/28/18 0612 Results 24hrs Laboratory Tests Test 12/27/18 17:29 12/27/18 21:38 12/28/18 02:13 12/28/18 06:12 Bedside Glucose 212 201 158 White Blood Count 7.2 Red Blood Count 3.42 L Hemoglobin 9.9 L Hematocrit 32.8 L Mean Corpuscular 95.9 Volume Mean Corpuscular 28.9 L Hemoglobin Mean Corpuscular 30.2 L Hemoglobin Concent Red Cell 15.1 H Distribution Width Platelet Count 330 # Mean Platelet Volume 10.6 H Immature 0.400 Granulocytes % Neutrophils % 57.6 Lymphocytes % 24.3 Monocytes % 10.4 Eosinophils % 6.9 Basophils % 0.4 Nucleated Red Blood 0.0 Cells % Immature 0.030 Granulocytes # Neutrophils # 4.2 Lymphocytes # 1.8 Monocytes # 0.8 Eosinophils # 0.5 Basophils # 0.0 Nucleated Red Blood 0.0 Cells # Sodium Level 141 Potassium Level 4.0 Chloride Level 104 Carbon Dioxide Level 32 H Anion Gap 5 Blood Urea Nitrogen 25 H Creatinine 1.53 H Est Glomerular 35 L Filtrat Rate mL/min Glucose Level 188 Calcium Level 8.6 Phosphorus Level 4.6 Magnesium Level 1.9 Test 12/28/18 08:14 12/28/18 12:03 Bedside Glucose 196 195 Medications Medication Current Medications Atorvastatin Calcium (Lipitor) 40 mg HS PO Last administered on 12/27/18at 21:32; Admin Dose 40 MG; Start 12/23/18 at 21:00 Gabapentin (Neurontin) 300 mg TID PO Last administered on 12/28/18at 13:12; Admin Dose 300 MG; Start 12/23/18 at 09:00 Heparin Sodium (Porcine) (Heparin (5000 Units/1ml)) 5,000 unit Q8 SC Last administered on 12/28/18at 06:49; Admin Dose 5,000 UNIT; Start 12/22/18 at 22:00 Oxycodone HCl (Roxicodone) 5 mg Q4H PRN PO MODERATE PAIN LEVEL 4-6; Start 12/22/18 at 22:00 Oxycodone HCl (Roxicodone) 10 mg Q4H PRN PO SEVERE PAIN LEVEL 7-10; Start 12/22/18 at 22:00 Hydromorphone HCl (Dilaudid) 0.2 mg Q4H PRN IV BREAKTHROUGH PAIN Last administered on 12/28/18 13:15; Admin Dose 0.2 MG; Start 12/22/18 at 22:00 Ondansetron HCl (Zofran Inj) 4 mg Q4H PRN IV NAUSEA AND/OR VOMITING; Start 12/22/18 at 22:00 Lactobacillus Acidophilus/ Rhamnosus (Culturelle) 1 cap TID PO Last administered on 12/28/18 13:12; Admin Dose 1 CAP; Start 12/23/18 at 09:00 Diphenhydramine HCl (Benadryl) 25 mg Q6H PRN PO ITCHING Last administered on 12/24/18 03:18; Admin Dose 25 MG; Start 12/22/18 at 22:00 Al Hydrox/Mg Hydrox/Simethicone (Mag-Al Plus) 30 ml Q4H PRN PO GASTROINTESTINAL UPSET; Start 12/22/18 at 22:00 Nystatin (Nystatin Powder) 1 applic BID TOP Last administered on 12/28/18 09:34; Admin Dose 1 APPLIC; Start 12/23/18 at 09:00 Diagnostic Test (Pha) (Accu-Chek) 1 ea 02 XX Last administered on 12/28/18 02:40; Admin Dose 1 EA; Start 12/23/18 at 02:00 Insulin Aspart (Novolog Insulin Pen) NOVOLOG *MODERATE* ALGORITHM WITH MEALS BEDTIME SC Last administered on 12/28/18 12:08; Admin Dose 4 UNIT; Start 12/23/18 at 07:35 Amlodipine Besylate (Norvasc) 10 mg DAILY PO Last administered on 12/28/18 09:32; Admin Dose 10 MG; Start 12/23/18 at 09:00 Ascorbic Acid (Vitamin C) 500 mg DAILY PO Last administered on 12/28/18 09:32; Admin Dose 500 MG; Start 12/23/18 at 09:00 Aspirin (Aspirin) 81 mg DAILY PO Last administered on 12/28/18 09:33; Admin Dose 81 MG; Start 12/23/18 at 09:00 Ergocalciferol (Drisdol) 50,000 unit @09 PO Last administered on 12/26/18 10:34; Admin Dose 50,000 UNIT; Start 12/26/18 at 09:00 Famotidine (Pepcid) 20 mg DAILY PO Last administered on 12/28/18 09:33; Admin Dose 20 MG; Start 12/23/18 at 09:00 Ferrous Sulfate (Ferrous Sulfate (Ec)) 325 mg DAILY PO Last administered on 12/28/18 09:33; Admin Dose 325 MG; Start 12/23/18 at 09:00 Folic Acid (Folic Acid) 1 mg DAILY PO Last administered on 12/28/18 09:34; Admin Dose 1 MG; Start 12/23/18 at 09:00 Polyethylene Glycol (Miralax) 17 gm DAILY PRN NGT CONSTIPATION; Start 12/22/18 at 22:30 Clonidine (Catapres) 0.1 mg Q6H PRN PO ELEVATED BLOOD PRESSURE Last administered on 12/26/18at 11:55; Admin Dose 0.1 MG; Start 12/22/18 at 22:30 Labetalol HCl (Normodyne) 100 mg BID PRN PO ELEVATED BLOOD PRESSURE Last administered on 12/28/18 09:33; Admin Dose 100 MG; Start 12/22/18 at 22:30 Miscellaneous Information 1 ea NOTE XX ; Start 12/22/18 at 23:30 Glucose (Glutose) 15 gm Q15M PRN PO DECREASED GLUCOSE; Start 12/22/18 at 23:30 Glucose (Glutose) 22.5 gm Q15M PRN PO DECREASED GLUCOSE; Start 12/22/18 at 23:30 Dextrose (D50w Syringe) 25 ml Q15M PRN IV DECREASED GLUCOSE; Start 12/22/18 at 23:30 Dextrose (D50w Syringe) 50 ml Q15M PRN IV DECREASED GLUCOSE; Start 12/22/18 at 23:30 Glucagon (Glucagen) 1 mg Q15M PRN IM DECREASED GLUCOSE; Start 12/22/18 at 23:30 Glucose (Glutose) 15 gm Q15M PRN BUCCAL DECREASED GLUCOSE; Start 12/22/18 at 23:30 Diagnostic Test (Pha) (Accu-Chek) 1 ea AC MEALS AND BEDTIME XX Last administered on 12/28/18at 12:06; Admin Dose 1 EA; Start 12/22/18 at 23:21 Miscellaneous Information (Pending Santyl Order For Wound Care) This patient dietrich... PRN PRN XX WOUND CARE; Start 12/23/18 at 00:00 Docusate Sodium (Colace) 100 mg BID PO Last administered on 12/28/18 09:32; Admin Dose 100 MG; Start 12/23/18 at 09:00 Senna (Senokot) 1 tab HS PO Last administered on 12/23/18 20:58; Admin Dose 1 TAB; Start 12/23/18 at 21:00 Lactulose (Enulose) 20 gm DAILY PRN PO CONSTIPATION Last administered on 09:30; Admin Dose 20 GM; Start 12/23/18 at 00:00 Bisacodyl (Dulcolax Supp) 10 mg DAILY PRN [place] CONSTIPATION; Start 12/23/18 at 00:00 Acetaminophen (Tylenol Tab) 650 mg Q4H PRN PO PAIN; Start 12/23/18 at 00:00 Linagliptin (Tradjenta) 5 mg DAILY PO Last administered on 12/28/18 10:24; Admin Dose 5 MG; Start 12/23/18 at 09:30 Insulin Aspart (Novolog Insulin Pen) 10 unit WITH MEALS SC Last administered on 12/28/18 12:10; Admin Dose 10 UNIT; Start 12/27/18 at 12:00 Insulin Glargine (Lantus) 20 units DAILY@0800 SC Last administered on 12/28/18 08:21; Admin Dose 20 UNITS; Start 12/28/18 at 08:00 Labetalol HCl (Normodyne) 400 mg Q8 PO Last administered on 12/28/18 06:46; Admin Dose 400 MG; Start 12/27/18 at 14:00 Lisinopril (Zestril) 10 mg DAILY PO Last administered on 12/28/18 09:33; Admin Dose 10 MG; Start 12/27/18 at 09:30 JOSE LOU NP Dec 28, 2018 13:56
[2018-12-28 14:00] VITALS: BP 129/71; PULSE 80; RESP 18
[2018-12-28 17:27] VITALS: BP 129/71; PULSE 80; RESP 18
[2018-12-28 20:00] VITALS: BP 135/68; PULSE 78; RESP 18
[2018-12-28] MEDS: SENNA TAB PO SCH (21:00)
[2018-12-28] MEDS: ATORVASTATIN 40 MG TAB PO SCH (21:20)
[2018-12-29 02:00] VITALS: BP 140/72; PULSE 85; RESP 18
[2018-12-29] MEDS: ACCU-CHEK XX SCH ×5 (02:00→21:00)
[2018-12-29] MEDS: LABETALOL 200 MG TAB PO SCH ×3 (06:26→21:39)
[2018-12-29] MEDS: HEPARIN 5,000 UNIT/1 ML VIAL SC SCH ×3 (06:26→21:34)
[2018-12-29 06:30] VITALS: BP 166/76; PULSE 77
[2018-12-29 07:00] VITALS: BP 140/68; PULSE 78; RESP 18
[2018-12-29] MEDS: HYDROmorphONE 0.5 MG/0.5 ML SYG IV PRN ×3 (07:47→19:03)
[2018-12-29] MEDS: INSULIN ASPART [NOVOLOG] 3 ML PEN SC SCH ×7 (07:54→21:00)
[2018-12-29] MEDS: INSULIN GLARGINE [LANTus] (100 UNITS/ML) SYG SC SCH (07:56)
[2018-12-29] MEDS: LACTOBACILLUS RHAMNOSUS CAP PO SCH ×3 (10:30→21:21)
[2018-12-29] MEDS: FERROUS SULFATE (EC) 325 MG TAB PO SCH (10:30)
[2018-12-29] MEDS: GABAPENTIN 300 MG CAP PO SCH ×3 (10:30→21:21)
[2018-12-29] MEDS: DOCUSATE SODIUM 100 MG CAP PO SCH ×2 (10:30→21:00)
[2018-12-29] MEDS: ASPIRIN 81 MG TAB PO SCH (10:30)
[2018-12-29] MEDS: AMLODIPINE 10 MG TAB PO SCH (10:31)
[2018-12-29] MEDS: FOLIC ACID 1 MG TAB PO SCH (10:31)
[2018-12-29] MEDS: FAMOTIDINE 20 MG TAB PO SCH (10:31)
[2018-12-29] MEDS: ASCORBIC ACID 500 MG TAB PO SCH (10:37)
[2018-12-29] MEDS: LISINOPRIL 10 MG TAB PO SCH (10:37)
[2018-12-29] MEDS: ACETAMINOPHEN 325 MG TAB PO PRN (10:38)
[2018-12-29] MEDS: NYSTATIN 30 GM POWDER BTL TOP SCH ×2 (10:39→21:22)
--- NOTE | 2018-12-29 11:48 | PN ---
Date/Time of Note Date/Time of Note DATE: 12/29/18 TIME: 11:48 Assessment/Plan VTE Prophylaxis Risk score (from Nsg)>0 risk: 7 SCD applied (from Ns): No SCD contraindicated: other Pharmacological prophylaxis: other Assessment/Plan Hospital Course medicine follow up SUBJECTIVE: The patient is stable. No events overnight. d/w Dr Mancera OBJECTIVE: HEENT: Head is normocephalic. NECK: Supple. HEART: Regular rate. LUNGS: Show diminished breath sounds at the base. ABDOMEN: Soft, nontender to palpation. No rebound or guarding. EXTREMITIES: Negative for clubbing, cyanosis, no edema. DERMATOLOGIC: No rashes. MUSCULOSKELETAL: No joint effusion. NEUROLOGIC: No change in exam. MEDICATIONS: Reviewed. LABORATORY DATA: Reviewed. ASSESSMENT AND PLAN: 1. Right transtibial amputation. The patient is currently stable. Continue wound care. Continue dressing changes. 2. Osteomyelitis of right foot. Continue current antibiotic therapy. Follow up with Infectious Disease. 3. Hypertension. Continue current blood pressure regimen. 4. Diabetes. Glucose levels remain elevated. Continue adjust insulin regimen. 5. Anemia. Monitor hemoglobin and hematocrit levels. 6. Mineral bone disorder, monitor calcium and phosphorus levels. 7. Neuropathy. Continue Neurontin. 8. Chronic pain syndrome. Continue current pain regimen. 9. Anxiety disorder. Continue statin therapy. 10. Gastrointestinal and deep vein thrombosis prophylaxis. Result Diagram: 12/28/18 0612 12/28/18 0612 Results 24hrs Laboratory Tests Test 12/28/18 12:03 12/28/18 17:49 12/28/18 21:23 12/29/18 07:45 Bedside Glucose 195 105 143 209 Exam/Review of Systems Exam Vitals Vital Signs Date Temp Pulse Resp B/P (MAP) Pulse Ox O2 O2 Flow FiO2 Time Delivery Rate 12/29/18 98.2 78 18 140/68 93 Room Air 07:00 (92) Intake and Output 12/28/18 12/28/18 12/29/18 1515:00 23:00 07:00 IntakeIntake Total 950 ml 750 ml BalanceBalance 950 ml 750 ml Results Results 24hrs Laboratory Tests Test 12/28/18 12:03 12/28/18 17:49 12/28/18 21:23 12/29/18 07:45 Bedside Glucose 195 105 143 209 Medications Medication Current Medications Atorvastatin Calcium (Lipitor) 40 mg HS PO Last administered on 12/28/18 21:20; Admin Dose 40 MG; Start 12/23/18 at 21:00 Gabapentin (Neurontin) 300 mg TID PO Last administered on 12/29/18 10:30; Admin Dose 300 MG; Start 12/23/18 at 09:00 Heparin Sodium (Porcine) (Heparin (5000 Units/1ml)) 5,000 unit Q8 SC Last administered on 12/29/18 06:26; Admin Dose 5,000 UNIT; Start 12/22/18 at 22:00 Oxycodone HCl (Roxicodone) 5 mg Q4H PRN PO MODERATE PAIN LEVEL 4-6 Last administered on 12/28/18 21:20; Admin Dose 5 MG; Start 12/22/18 at 22:00 Oxycodone HCl (Roxicodone) 10 mg Q4H PRN PO SEVERE PAIN LEVEL 7-10; Start 12/22/18 at 22:00 Hydromorphone HCl (Dilaudid) 0.2 mg Q4H PRN IV BREAKTHROUGH PAIN Last administered on 12/29/18 11:28; Admin Dose 0.2 MG; Start 12/22/18 at 22:00 Ondansetron HCl (Zofran Inj) 4 mg Q4H PRN IV NAUSEA AND/OR VOMITING; Start 12/22/18 at 22:00 Lactobacillus Acidophilus/ Rhamnosus (Culturelle) 1 cap TID PO Last administered on 12/29/18 10:30; Admin Dose 1 CAP; Start 12/23/18 at 09:00 Diphenhydramine HCl (Benadryl) 25 mg Q6H PRN PO ITCHING Last administered on 12/24/18 03:18; Admin Dose 25 MG; Start 12/22/18 at 22:00 Al Hydrox/Mg Hydrox/Simethicone (Mag-Al Plus) 30 ml Q4H PRN PO GASTROINTESTINAL UPSET; Start 12/22/18 at 22:00 Nystatin (Nystatin Powder) 1 applic BID TOP Last administered on 12/29/18 10:39; Admin Dose 1 APPLIC; Start 12/23/18 at 09:00 Diagnostic Test (Pha) (Accu-Chek) 1 ea 02 XX Last administered on 3/16/19at 02:40; Admin Dose 1 EA; Start 12/23/18 at 02:00 Insulin Aspart (Novolog Insulin Pen) NOVOLOG *MODERATE* ALGORITHM WITH MEALS BEDTIME SC Last administered on 12/29/18 07:54; Admin Dose 4 UNIT; Start 12/23/18 at 07:35 Amlodipine Besylate (Norvasc) 10 mg DAILY PO Last administered on 12/29/18 10:31; Admin Dose 10 MG; Start 12/23/18 at 09:00 Ascorbic Acid (Vitamin C) 500 mg DAILY PO Last administered on 12/29/18 10:37; Admin Dose 500 MG; Start 12/23/18 at 09:00 Aspirin (Aspirin) 81 mg DAILY PO Last administered on 12/29/18 10:30; Admin Do se 81 MG; Start 12/23/18 at 09:00 Ergocalciferol (Drisdol) 50,000 unit Th@09 PO Last administered on 12/26/18 10:34; Admin Dose 50,000 UNIT; Start 12/26/18 at 09:00 Famotidine (Pepcid) 20 mg DAILY PO Last administered on 12/29/18 10:31; Admin Dose 20 MG; Start 12/23/18 at 09:00 Ferrous Sulfate (Ferrous Sulfate (Ec)) 325 mg DAILY PO Last administered on 12/29/18 10:30; Admin Dose 325 MG; Start 12/23/18 at 09:00 Folic Acid (Folic Acid) 1 mg DAILY PO Last administered on 12/29/18 10:31; Adm in Dose 1 MG; Start 12/23/18 at 09:00 Polyethylene Glycol (Miralax) 17 gm DAILY PRN NGT CONSTIPATION; Start 12/22/18 at 22:30 Clonidine (Catapres) 0.1 mg Q6H PRN PO ELEVATED BLOOD PRESSURE Last admi nistered on 12/26/18 11:55; Admin Dose 0.1 MG; Start 12/22/18 at 22:30 Labetalol HCl (Normodyne) 100 mg BID PRN PO ELEVATED BLOOD PRESSURE Last administered on 12/28/18 09:33; Admin Dose 100 MG; Start 12/22/18 at 22:30 Miscellaneous Information 1 ea NOTE XX ; Start 12/22/18 at 23:30 Glucose (Glutose) 15 gm Q15M PRN PO DECREASED GLUCOSE; Start 12/22/18 at 23:30 Glucose (Glutose) 22.5 gm Q15M PRN PO DECREASED GLUCOSE; Start 12/22/18 at 23:30 Dextrose (D50w Syringe) 25 ml Q15M PRN IV DECREASED GLUCOSE; Start 12/22/18 at 23:30 Dextrose (D50w Syringe) 50 ml Q15M PRN IV DECREASED GLUCOSE; Start 12/22/18 at 23:30 Glucagon (Glucagen) 1 mg Q15M PRN IM DECREASED GLUCOSE; Start 12/22/18 at 23:30 Glucose (Glutose) 15 gm Q15M PRN BUCCAL DECREASED GLUCOSE; Start 12/22/18 at 23:30 Diagnostic Test (Pha) (Accu-Chek) 1 ea AC MEALS AND BEDTIME XX Last administered on 12/29/18 07:54; Admin Dose 1 EA; Start 12/22/18 at 23:21 Miscellaneous Information (Pending [facility] Order For Wound Care) This patient dietrich... PRN PRN XX WOUND CARE; Start 12/23/18 at 00:00 Docusate Sodium (Colace) 100 mg BID PO Last administered on 12/29/18 10:30; Admin Dose 100 MG; Start 12/23/18 at 09:00 Senna (Senokot) 1 tab HS PO Last administered on 12/23/18at 20:58; Admin Dose 1 TAB; Start 12/23/18 at 21:00 Lactulose (Enulose) 20 gm DAILY PRN PO CONSTIPATION Last administered on 12/28/18 09:30; Admin Dose 20 GM; Start 12/23/18 at 00:00 Bisacodyl (Dulcolax Supp) 10 mg DAILY PRN [place] CONSTIPATION; Start 12/23/18 at 00:00 Acetaminophen (Tylenol Tab) 650 mg Q4H PRN PO PAIN Last administered on 12/29/18 10:38; Admin Dose 650 MG; Start 12/23/18 at 00:00 Linagliptin (Tradjenta) 5 mg DAILY PO Last administered on 12/28/18 10:24; Admin Dose 5 MG; Start 12/23/18 at 09:30 Insulin Aspart (Novolog Insulin Pen) 10 unit WITH MEALS SC Last administered on 12/29/18 07:55; Admin Dose 10 UNIT; Start 12/27/18 at 12:00 Insulin Glargine (Lantus) 20 units DAILY@0800 SC Last administered on 12/29/18at 07:56; Admin Dose 20 UNITS; Start 12/28/18 at 08:00 Labetalol HCl (Normodyne) 400 mg Q8 PO Last administered on 12/29/18at 06:26; Admin Dose 400 MG; Start 12/27/18 at 14:00 Lisinopril (Zestril) 10 mg DAILY PO Last administered on 12/29/18at 10:37; Admin Dose 10 MG; Start 12/27/18 at 09:30 DREW CHAMPAGNE DO Dec 29, 2018 11:48
[2018-12-29 14:00] VITALS: BP 114/71; PULSE 72; RESP 18
--- NOTE | 2018-12-29 14:39 | CONS ---
Assessment/Plan Assessment/Plan Hospital Course (Demo Recall) ID PROGRESS NOTE CURRENT ABX: DAY # OFF ABX 24H INTERVAL SUMMARY * A/A/O -- going well, remarkable coping with positive affect, denies f/ c/n/v/d/dysuria/SOB/leg pain/stump pain DIAGNOSTIC IMAGING * CXR: MICRO/OTHER * 12/23/2018 URINE CX: URINE CULTURE Final Organism 1 HOLLY GLABRATA COLONY COUNT >100,000 CFU/ml PHYSICAL EXAMINATION: GENERAL: VSS HEENT: AT, NC, anicteric NECK: Supple, CHEST: Equal chest rise bilaterally, without dyspnea on observation HEART: Pulse RRR ABDOMEN: Soft / NT EXTREMITIES: Warm, dry Right leg stump dressing removed -- fox present, no drainage, no erythema, no evidence of infection/no necrosis * Left leg mild edema -- Charcot foot, pre-tibial skin abrasion clean SKIN: No rash, no diaphoresis ID ASSESSMENT 58 yo F admit with: 1. Funguria, consistent with colonization 2. History of right lower extremity infection with ongoing osteomyelitis status post below-knee amputation 3. Diabetes with diabetic neuropathy 4. Hypertension (-)MRSA NARES ABX ALLERGIES: PCN INVASIVES: PIV CURRENT ABX: DAY # OFF ABX ID RECOMMENDATIONS/PLAN: 1. Continue to monitor OFF ABX for stump necrosis-- fox to be removed soon. . Consultation Date/Type/Reason Admit Date/Time Dec 22, 2018 at 20:54 Initial Consult Date Date/Time of Note DATE: 12/29/18 TIME: 14:37 Exam/Review of Systems Exam Vitals Vital Signs Date Temp Pulse Resp B/P (MAP) Pulse Ox O2 O2 Flow FiO2 Time Delivery Rate 12/29/18 98.2 78 18 140/68 93 Room Air 07:00 (92) Intake and Output 12/28/18 12/28/18 12/29/18 1515:00 23:00 07:00 IntakeIntake Total 950 ml 750 ml BalanceBalance 950 ml 750 ml Results Result Diagram: 12/28/18 0612 12/28/18 0612 Results 24hrs Laboratory Tests Test 12/28/18 17:49 12/28/18 21:23 12/29/18 07:45 12/29/18 12:38 Bedside Glucose 105 143 209 145 Medications Medication Current Medications Atorvastatin Calcium (Lipitor) 40 mg HS PO Last administered on 12/28/18 21:20; Admin Dose 40 MG; Start 12/23/18 at 21:00 Gabapentin (Neurontin) 300 mg TID PO Last administered on 12/29/18 10:30; Admin Dose 300 MG; Start 12/23/18 at 09:00 Heparin Sodium (Porcine) (Heparin (5000 Units/1ml)) 5,000 unit Q8 SC Last administered on 12/29/18 06:26; Admin Dose 5,000 UNIT; Start 12/22/18 at 22:00 Oxycodone HCl (Roxicodone) 5 mg Q4H PRN PO MODERATE PAIN LEVEL 4-6 Last administered on 12/28/18 21:20; Admin Dose 5 MG; Start 12/22/18 at 22:00 Oxycodone HCl (Roxicodone) 10 mg Q4H PRN PO SEVERE PAIN LEVEL 7-10; Start 12/22/18 at 22:00 Hydromorphone HCl (Dilaudid) 0.2 mg Q4H PRN IV BREAKTHROUGH PAIN Last administered on 12/29/18 11:28; Admin Dose 0.2 MG; Start 12/22/18 at 22:00 Ondansetron HCl (Zofran Inj) 4 mg Q4H PRN IV NAUSEA AND/OR VOMITING; Start 12/22/18 at 22:00 Lactobacillus Acidophilus/ Rhamnosus (Culturelle) 1 cap TID PO Last administered on 12/29/18 10:30; Admin Dose 1 CAP; Start 12/23/18 at 09:00 Diphenhydramine HCl (Benadryl) 25 mg Q6H PRN PO ITCHING Last administered on 12/24/18 03:18; Admin Dose 25 MG; Start 12/22/18 at 22:00 Al Hydrox/Mg Hydrox/Simethicone (Mag-Al Plus) 30 ml Q4H PRN PO GASTROINTESTINAL UPSET; Start 12/22/18 at 22:00 Nystatin (Nystatin Powder) 1 applic BID TOP Last administered on 12/29/18 10:39; Admin Dose 1 APPLIC; Start 12/23/18 at 09:00 Diagnostic Test (Pha) (Accu-Chek) 1 ea 02 XX Last administered on 12/28/18 02:40; Admin Dose 1 EA; Start 12/23/18 at 02:00 Insulin Aspart (Novolog Insulin Pen) NOVOLOG *MODERATE* ALGORITHM WITH MEALS BEDTIME SC Last administered on 12/29/18 12:42; Admin Dose 2 UNIT; Start 12/23/18 at 07:35 Amlodipine Besylate (Norvasc) 10 mg DAILY PO Last administered on 12/29/18 10:31; Admin Dose 10 MG; Start 12/23/18 at 09:00 Ascorbic Acid (Vitamin C) 500 mg DAILY PO Last administered on 12/29/18 10:37; Admin Dose 500 MG; Start 12/23/18 at 09:00 Aspirin (Aspirin) 81 mg DAILY PO Last administered on 12/29/18 10:30; Admin Dose 81 MG; Start 12/23/18 at 09:00 Ergocalciferol (Drisdol) 50,000 unit Th@09 PO Last administered on 12/26/18 10:34; Admin Dose 50,000 UNIT; Start 12/26/18 at 09:00 Famotidine (Pepcid) 20 mg DAILY PO Last administered on 12/29/18 10:31; Admin Dose 20 MG; Start 12/23/18 at 09:00 Ferrous Sulfate (Ferrous Sulfate (Ec)) 325 mg DAILY PO Last administered on 10:30; Admin Dose 325 MG; Start 12/23/18 at 09:00 Folic Acid (Folic Acid) 1 mg DAILY PO Last administered on 12/29/18 10:31; Admin Dose 1 MG; Start 12/23/18 at 09:00 Polyethylene Glycol (Miralax) 17 gm DAILY PRN NGT CONSTIPATION; Start 12/22/18 at 22:30 Clonidine (Catapres) 0.1 mg Q6H PRN PO ELEVATED BLOOD PRESSURE Last administered on 12/26/18 11:55; Admin Dose 0.1 MG; Start 12/22/18 at 22:30 Labetalol HCl (Normodyne) 100 mg BID PRN PO ELEVATED BLOOD PRESSURE Last administered on 12/28/18 09:33; Admin Dose 100 MG; Start 12/22/18 at 22:30 Miscellaneous Information 1 ea NOTE XX ; Start 12/22/18 at 23:30 Glucose (Glutose) 15 gm Q15M PRN PO DECREASED GLUCOSE; Start 12/22/18 at 23:30 Glucose (Glutose) 22.5 gm Q15M PRN PO DECREASED GLUCOSE; Start 12/22/18 at 23:30 Dextrose (D50w Syringe) 25 ml Q15M PRN IV DECREASED GLUCOSE; Start 12/22/18 at 23:30 Dextrose (D50w Syringe) 50 ml Q15M PRN IV DECREASED GLUCOSE; Start 12/22/18 at 23:30 Glucagon (Glucagen) 1 mg Q15M PRN IM DECREASED GLUCOSE; Start 12/22/18 at 23:30 Glucose (Glutose) 15 gm Q15M PRN BUCCAL DECREASED GLUCOSE; Start 12/22/18 at 23:30 Diagnostic Test (Pha) (Accu-Chek) 1 ea AC MEALS AND BEDTIME XX Last admini stered on 12/29/18at 12:12; Admin Dose 1 EA; Start 12/22/18 at 23:21 Misc[facility] This patient dietrich... PRN PRN XX WOUND CARE; Start 12/23/18 at 00:00 Docusate Sodium (Colace) 100 mg BID PO Last administered on 12/29/18at 10:30; Admin Dose 100 MG; Start 12/23/18 at 09:00 Senna (Senokot) 1 tab HS PO Last administered on 12/23/18at 20:58; Admin Dose 1 TAB; Start 12/23/18 at 21:00 Lactulose (Enulose) 20 gm DAILY PRN PO CONSTIPATION Last administered on 12/28/18at 09:30; Admin Dose 20 GM; Start 12/23/18 at 00:00 Bisacodyl (Dulcolax Supp) 10 mg DAILY PRN [place] CONSTIPATION; Start 12/23/18 at 00:00 Acetaminophen (Tylenol Tab) 650 mg Q4H PRN PO PAIN Last administered on 12/29/18at 10:38; Admin Dose 650 MG; Start 12/23/18 at 00:00 Linagliptin (Tradjenta) 5 mg DAILY PO Last administered on 12/28/18at 10:24; Admin Dose 5 MG; Start 12/23/18 at 09:30 Insulin Aspart (Novolog Insulin Pen) 10 unit WITH MEALS SC Last administered on 12/29/18at 12:44; Admin Dose 10 UNIT; Start 12/27/18 at 12:00 Insulin Glargine (Lantus) 20 units DAILY@0800 SC Last administered on 12/29/18at 07:56; Admin Dose 20 UNITS; Start 12/28/18 at 08:00 Labetalol HCl (Normodyne) 400 mg Q8 PO Last administered on 12/29/18at 06:26; Admin Dose 400 MG; Start 12/27/18 at 14:00 Lisinopril (Zestril) 10 mg DAILY PO Last administered on 12/29/18at 10:37; Admin Dose 10 MG; Start 12/27/18 at 09:30 JOSE LOU NP Dec 29, 2018 14:39
[2018-12-29 20:00] VITALS: BP 146/70; PULSE 80; RESP 18
[2018-12-29] MEDS: SENNA TAB PO SCH (21:00)
[2018-12-29] MEDS: ATORVASTATIN 40 MG TAB PO SCH (21:21)
[2018-12-30] MEDS: DIPHENHYDRAMINE 25 MG CAP PO PRN ×2 (01:21→21:33)
[2018-12-30 02:00] VITALS: BP 148/67; PULSE 82; RESP 18
[2018-12-30] MEDS: ACCU-CHEK XX SCH ×5 (02:00→21:00)
[2018-12-30] MEDS: ACETAMINOPHEN 325 MG TAB PO PRN ×2 (04:18→21:33)
[2018-12-30] MEDS: LABETALOL 200 MG TAB PO SCH ×3 (06:13→22:33)
[2018-12-30] MEDS: HEPARIN 5,000 UNIT/1 ML VIAL SC SCH ×3 (06:15→22:33)
[2018-12-30 07:30] VITALS: BP 161/78; PULSE 79; RESP 18
[2018-12-30] MEDS: INSULIN ASPART [NOVOLOG] 3 ML PEN SC SCH ×7 (08:09→21:00)
[2018-12-30] MEDS: INSULIN GLARGINE [LANTus] (100 UNITS/ML) SYG SC SCH (08:11)
[2018-12-30] MEDS: LINAGLIPTIN 5 MG TABLET PO SCH (08:11)
--- NOTE | 2018-12-30 08:59 | PN ---
DATE: 12/30/2018 SUBJECTIVE: The patient is stable. No events overnight. OBJECTIVE: VITAL SIGNS: Blood pressure is 148/67, respiration 18, pulse 82, temperature 98.0. HEENT: Head is normocephalic. NECK: Supple. HEART: Regular rate. LUNGS: Show diminished breath sounds at base. ABDOMEN: Soft, nontender to palpation without rebound or guarding. EXTREMITIES: Negative for clubbing, cyanosis, no edema in left leg. Right below-knee amputation is noted. DERMATOLOGIC: No rashes. MUSCULOSKELETAL: No joint effusion. NEUROLOGIC: No change in exam. MEDICATIONS: Reviewed. LABORATORY DATA: Reviewed. ASSESSMENT AND PLAN: 1. Right transtibial amputation. The patient is currently stable. Continue wound care, continue dr francis cbarera. 2. Osteomyelitis, right foot. Continue current antibiotic regimen. 3. Diabetes. Glucose levels are improving. Continue insulin regimen, adjust as needed. 4. Hypertension. Continue current blood pressure regimen. 5. Anemia. Continue to monitor hemoglobin and hematocrit levels. 6. Mineral bone disorder, monitor calcium and phosphorus levels. 7. Neuropathy. Continue Neurontin. 8. Chronic pain syndrome. Continue current pain regimen. 9. Anxiety disorder. Continue statin therapy. 10. Gastrointestinal and deep vein thrombosis prophylaxis. Dictated By: ISELA BARAJAS DO NR/NTS Conf#: [id number] DID#: [id number] CC: MARYANN JAVIER MD;*EndCC*
[2018-12-30] MEDS: LACTOBACILLUS RHAMNOSUS CAP PO SCH ×3 (09:56→21:33)
[2018-12-30] MEDS: DOCUSATE SODIUM 100 MG CAP PO SCH ×2 (09:57→21:00)
[2018-12-30] MEDS: GABAPENTIN 300 MG CAP PO SCH ×3 (09:57→21:34)
[2018-12-30] MEDS: ASCORBIC ACID 500 MG TAB PO SCH (09:57)
[2018-12-30] MEDS: FERROUS SULFATE (EC) 325 MG TAB PO SCH (09:57)
[2018-12-30] MEDS: FAMOTIDINE 20 MG TAB PO SCH (09:57)
[2018-12-30] MEDS: ASPIRIN 81 MG TAB PO SCH (09:57)
[2018-12-30] MEDS: LISINOPRIL 10 MG TAB PO SCH (09:58)
[2018-12-30] MEDS: AMLODIPINE 10 MG TAB PO SCH (09:58)
[2018-12-30] MEDS: NYSTATIN 30 GM POWDER BTL TOP SCH ×2 (09:58→21:35)
[2018-12-30] MEDS: FOLIC ACID 1 MG TAB PO SCH (11:45)
--- NOTE | 2018-12-30 13:08 | PN ---
Date/Time of Note Date/Time of Note DATE: 12/30/18 TIME: 13:08 Objective Vital Signs Date Temp Pulse Resp B/P (MAP) Pulse Ox O2 O2 Flow FiO2 Time Delivery Rate 12/30/18 98.4 79 18 161/78 93 Room Air 07:30 (105) Intake and Output 12/29/18 12/29/18 12/30/18 1515:00 23:00 07:00 IntakeIntake Total 1100 ml 480 ml OutputOutput Total 900 ml BalanceBalance 1100 ml -420 ml Exam INTERDISCIPLINARY TEAM CONFERENCE Physical Exam: Pulm-cta Abd-soft BOWEL- Cont BLADDER-Cont SKIN- improving OT- DRESSING-min/mod BATHING-min/mod TOILETING- min/mod PT- BED MOBILITY-sba TRANSFERS- max x 2 WHEELCHAIR- supervised SPEECH- COGNITION- Dysphagia- A/P- Interdisciplinary team conference held today. Please see interdisciplinary sheet. Working toward d.c. on 01/07 with post discharge follow up of physical therapy, occupational therapy. Results/Medications Result Diagram: 12/28/1812 12/28/18 06 Results 24 hrs Laboratory Tests Test 12/29/18 17:39 12/29/18 20:42 12/30/18 07:48 12/30/18 12:07 Bedside Glucose 78 128 168 260 H Medications Current Medications Atorvastatin Calcium (Lipitor) 40 mg HS PO Last administered on 12/29/18at 21:21; Admin Dose 40 MG; Start 12/23/18 at 21:00 Gabapentin (Neurontin) 300 mg TID PO Last administered on 12/30/18at 12:54; Admin Dose 300 MG; Start 12/23/18 at 09:00 Heparin Sodium (Porcine) (Heparin (5000 Units/1ml)) 5,000 unit Q8 SC Last administered on 12/30/18at 06:15; Admin Dose 5,000 UNIT; Start 12/22/18 at 22:00 Oxycodone HCl (Roxicodone) 5 mg Q4H PRN PO MODERATE PAIN LEVEL 4-6 Last administered on 12/28/18at 21:20; Admin Dose 5 MG; Start 12/22/18 at 22:00 Oxycodone HCl (Roxicodone) 10 mg Q4H PRN PO SEVERE PAIN LEVEL 7-10; Start 12/22/18 at 22:00 Hydromorphone HCl (Dilaudid) 0.2 mg Q4H PRN IV BREAKTHROUGH PAIN Last administered on 12/29/18 19:03; Admin Dose 0.2 MG; Start 12/22/18 at 22:00 Ondansetron HCl (Zofran Inj) 4 mg Q4H PRN IV NAUSEA AND/OR VOMITING; Start 12/22/18 at 22:00 Lactobacillus Acidophilus/ Rhamnosus (Culturelle) 1 cap TID PO Last administered on 12/30/18 12:54; Admin Dose 1 CAP; Start 12/23/18 at 09:00 Diphenhydramine HCl (Benadryl) 25 mg Q6H PRN PO ITCHING Last administered on 12/30/18 01:21; Admin Dose 25 MG; Start 12/22/18 at 22:00 Al Hydrox/Mg Hydrox/Simethicone (Mag-Al Plus) 30 ml Q4H PRN PO GASTROINTESTINAL UPSET; Start 12/22/18 at 22:00 Nystatin (Nystatin Powder) 1 applic BID TOP Last administered on 12/30/18 09:58; Admin Dose 1 APPLIC; Start 12/23/18 at 09:00 Diagnostic Test (Pha) (Accu-Chek) 1 ea 02 XX Last administered on 12/28/18 02:40; Admin Dose 1 EA; Start 12/23/18 at 02:00 Insulin Aspart (Novolog Insulin Pen) NOVOLOG *MODERATE* ALGORITHM WITH MEALS BEDTIME SC Last administered on 12/30/18 12:38; Admin Dose 6 UNIT; Start 12/23/18 at 07:35 Amlodipine Besylate (Norvasc) 10 mg DAILY PO Last administered on 12/30/18 09:58; Admin Dose 10 MG; Start 12/23/18 at 09:00 Ascorbic Acid (Vitamin C) 500 mg DAILY PO Last administered on 12/30/18 09:57; Admin Dose 500 MG; Start 12/23/18 at 09:00 Aspirin (Aspirin) 81 mg DAILY PO Last administered on 12/30/18 09:57; Admin Dose 81 MG; Start 12/23/18 at 09:00 Ergocalciferol (Drisdol) 50,000 unit @09 PO Last administered on 12/26/18 10:34; Admin Dose 50,000 UNIT; Start 12/26/18 at 09:00 Famotidine (Pepcid) 20 mg DAILY PO Last administered on 12/30/18 09:57; Admin Dose 20 MG; Start 12/23/18 at 09:00 Ferrous Sulfate (Ferrous Sulfate (Ec)) 325 mg DAILY PO Last administered on 12/30/18 09:57; Admin Dose 325 MG; Start 12/23/18 at 09:00 Folic Acid (Folic Acid) 1 mg DAILY PO Last administered on 12/30/18 11:45; Admin Dose 1 MG; Start 12/23/18 at 09:00 Polyethylene Glycol (Miralax) 17 gm DAILY PRN NGT CONSTIPATION; Start 12/22/18 at 22:30 Clonidine (Catapres) 0.1 mg Q6H PRN PO ELEVATED BLOOD PRESSURE Last administered on 12/26/18 11:55; Admin Dose 0.1 MG; Start 12/22/18 at 22:30 Labetalol HCl (Normodyne) 100 mg BID PRN PO ELEVATED BLOOD PRESSURE Last administered on 12/28/18 09:33; Admin Dose 100 MG; Start 12/22/18 at 22:30 Miscellaneous Information 1 ea NOTE XX ; Start 12/22/18 at 23:30 Glucose (Glutose) 15 gm Q15M PRN PO DECREASED GLUCOSE; Start 12/22/18 at 23:30 Glucose (Glutose) 22.5 gm Q15M PRN PO DECREASED GLUCOSE; Start 12/22/18 at 23:30 Dextrose (D50w Syringe) 25 ml Q15M PRN IV DECREASED GLUCOSE; Start 12/22/18 at 23:30 Dextrose (D50w Syringe) 50 ml Q15M PRN IV DECREASED GLUCOSE; Start 12/22/18 at 23:30 Glucagon (Glucagen) 1 mg Q15M PRN IM DECREASED GLUCOSE; Start 12/22/18 at 23:30 Glucose (Glutose) 15 gm Q15M PRN BUCCAL DECREASED GLUCOSE; Start 12/22/18 at 23:30 Diagnostic Test (Pha) (Accu-Chek) 1 ea AC MEALS AND BEDTIME XX Last adm inistered on 12/30/18at 11:30; Admin Dose 1 EA; Start 12/22/18 at 23:21 Miscellaneous Information (Pending [facility] Order For Wound Care) This patient dietrich... PRN PRN XX WOUND CARE; Start 12/23/18 at 00:00 Docusate Sodium (Colace) 100 mg BID PO Last administered on 12/30/18 09:57; Admin Dose 100 MG; Start 12/23/18 at 09:00 Senna (Senokot) 1 tab HS PO Last administered on 12/23/18 20:58; Admin Dose 1 TAB; Start 12/23/18 at 21:00 Lactulose (Enulose) 20 gm DAILY PRN PO CONSTIPATION Last administered on 12/28/18 09:30; Admin Dose 20 GM; Start 12/23/18 at 00:00 Bisacodyl (Dulcolax Supp) 10 mg DAILY PRN [place] CONSTIPATION; Start 12/23/18 at 00:00 Acetaminophen (Tylenol Tab) 650 mg Q4H PRN PO PAIN Last administered on 12/30/18 04:18; Admin Dose 650 MG; Start 12/23/18 at 00:00 Linagliptin (Tradjenta) 5 mg DAILY PO Last administered on 12/30/18 08:11; Admin Dose 5 MG; Start 12/23/18 at 09:30 Insulin Aspart (Novolog Insulin Pen) 10 unit WITH MEALS SC Last administered on 12/30/18 12:37; Admin Dose 10 UNIT; Start 12/27/18 at 12:00 Insulin Glargine (Lantus) 20 units DAILY@0800 SC Last administered on 12/30/18 08:11; Admin Dose 20 UNITS; Start 12/28/18 at 08:00 Labetalol HCl (Normodyne) 400 mg Q8 PO Last administered on 12/30/18 06:13; Admin Dose 400 MG; Start 12/27/18 at 14:00 Lisinopril (Zestril) 10 mg DAILY PO Last administered on 12/30/18 09:58; Admin Dose 10 MG; Start 12/27/18 at 09:30 MARYANN JAVIER MD Dec 30, 2018 13:08
[2018-12-30 14:00] VITALS: BP 144/70; PULSE 90; RESP 18
--- NOTE | 2018-12-30 14:31 | CONS ---
Assessment/Plan Assessment/Plan Hospital Course (Demo Recall) No acute events, no fevers PHYSICAL EXAMINATION: GENERAL: This is obese well-developed elderly woman who is alert, . HEENT: Head is atraumatic, normocephalic. Sclerae are anicteric. Buccal mucosa is pink. NECK: Supple. CHEST: Rise symmetrical. Breath sounds clear. HEART: S1, S2. ABDOMEN: Obese, soft. Bowel tones are present. EXTREMITIES: Without cyanosis. Right lower extremity stump wrapped, immobilizer present Assessment: 1. Funguria, consistent with colonization 2. History of right lower extremity infection with ongoing osteomyelitis status post below-knee amputation 3. Diabetes with diabetic neuropathy 4. Hypertension Plan: Remains stable, off abx, monitor right lower extremity stump for infection Consultation Date/Type/Reason Admit Date/Time Dec 22, 2018 at 20:54 Initial Consult Date Type of Consult id Date/Time of Note DATE: 12/30/18 TIME: 14:30 Exam/Review of Systems Exam Vitals Vital Signs Date Temp Pulse Resp B/P (MAP) Pulse Ox O2 O2 Flow FiO2 Time Delivery Rate 12/30/18 98.4 79 18 161/78 93 Room Air 07:30 (105) Intake and Output 12/29/18 12/29/18 12/30/18 1515:00 23:00 07:00 IntakeIntake Total 1100 ml 480 ml OutputOutput Total 900 ml BalanceBalance 1100 ml -420 ml Results Result Diagram: 12/28/18 0612 12/28/18 0612 Results 24hrs Laboratory Tests Test 12/29/18 17:39 12/29/18 20:42 12/30/18 07:48 12/30/18 12:07 Bedside Glucose 78 128 168 260 H Medications Medication Current Medications Atorvastatin Calcium (Lipitor) 40 mg HS PO Last administered on 12/29/18at 21:21; Admin Dose 40 MG; Start 12/23/18 at 21:00 Gabapentin (Neurontin) 300 mg TID PO Last administered on 12/30/18at 12:54; Admin Dose 300 MG; Start 12/23/18 at 09:00 Heparin Sodium (Porcine) (Heparin (5000 Units/1ml)) 5,000 unit Q8 SC Last administered on 12/30/18at 14:17; Admin Dose 5,000 UNIT; Start 12/22/18 at 22:00 Oxycodone HCl (Roxicodone) 5 mg Q4H PRN PO MODERATE PAIN LEVEL 4-6 Last administered on 12/28/18 21:20; Admin Dose 5 MG; Start 12/22/18 at 22:00 Oxycodone HCl (Roxicodone) 10 mg Q4H PRN PO SEVERE PAIN LEVEL 7-10; Start 12/22/18 at 22:00 Hydromorphone HCl (Dilaudid) 0.2 mg Q4H PRN IV BREAKTHROUGH PAIN Last administered on 12/29/18 19:03; Admin Dose 0.2 MG; Start 12/22/18 at 22:00 Ondansetron HCl (Zofran Inj) 4 mg Q4H PRN IV NAUSEA AND/OR VOMITING; Start 12/22/18 at 22:00 Lactobacillus Acidophilus/ Rhamnosus (Culturelle) 1 cap TID PO Last administered on 12/30/18 12:54; Admin Dose 1 CAP; Start 12/23/18 at 09:00 Diphenhydramine HCl (Benadryl) 25 mg Q6H PRN PO ITCHING Last administered on 12/30/18 01:21; Admin Dose 25 MG; Start 12/22/18 at 22:00 Al Hydrox/Mg Hydrox/Simethicone (Mag-Al Plus) 30 ml Q4H PRN PO GASTROINTESTINAL UPSET; Start 12/22/18 at 22:00 Nystatin (Nystatin Powder) 1 applic BID TOP Last administered on 12/30/18 09:58; Admin Dose 1 APPLIC; Start 12/23/18 at 09:00 Diagnostic Test (Pha) (Accu-Chek) 1 ea 02 XX Last administered on 12/28/18 02:40; Admin Dose 1 EA; Start 12/23/18 at 02:00 Insulin Aspart (Novolog Insulin Pen) NOVOLOG *MODERATE* ALGORITHM WITH MEALS BEDTIME SC Last administered on 12/30/18 12:38; Admin Dose 6 UNIT; Start 12/23/18 at 07:35 Amlodipine Besylate (Norvasc) 10 mg DAILY PO Last administered on 12/30/18 09:58; Admin Dose 10 MG; Start 12/23/18 at 09:00 Ascorbic Acid (Vitamin C) 500 mg DAILY PO Last administered on 3/18/19at 09:57; Admin Dose 500 MG; Start 12/23/18 at 09:00 Aspirin (Aspirin) 81 mg DAILY PO Last administered on 12/30/18at 09:57; Admin Dose 81 MG; Start 12/23/18 at 09:00 Ergocalciferol (Drisdol) 50,000 unit Th@09 PO Last administered on 12/26/18at 10:34; Admin Dose 50,000 UNIT; Start 12/26/18 at 09:00 Famotidine (Pepcid) 20 mg DAILY PO Last administered on 12/30/18at 09:57; Admin Dose 20 MG; Start 12/23/18 at 09:00 Ferrous Sulfate (Ferrous Sulfate (Ec)) 325 mg DAILY PO Last administered on 12/30/18at 09:57; Admin Dose 325 MG; Start 12/23/18 at 09:00 Folic Acid (Folic Acid) 1 mg DAILY PO Last administered on 12/30/18at 11:45; Admin Dose 1 MG; Start 12/23/18 at 09:00 Polyethylene Glycol (Miralax) 17 gm DAILY PRN NGT CONSTIPATION; Start 12/22/18 at 22:30 Clonidine (Catapres) 0.1 mg Q6H PRN PO ELEVATED BLOOD PRESSURE Last administere d on 12/26/18at 11:55; Admin Dose 0.1 MG; Start 12/22/18 at 22:30 Labetalol HCl (Normodyne) 100 mg BID PRN PO ELEVATED BLOOD PRESSURE Last administered on 12/28/18at 09:33; Admin Dose 100 MG; Start 12/22/18 at 22:30 Miscellaneous Information 1 ea NOTE XX ; Start 12/22/18 at 23:30 Glucose (Glutose) 15 gm Q15M PRN PO DECREASED GLUCOSE; Start 12/22/18 at 23:30 Glucose (Glutose) 22.5 gm Q15M PRN PO DECREASED GLUCOSE; Start 12/22/18 at 23:30 Dextrose (D50w Syringe) 25 ml Q15M PRN IV DECREASED GLUCOSE; Start 12/22/18 at 23:30 Dextrose (D50w Syringe) 50 ml Q15M PRN IV DECREASED GLUCOSE; Start 12/22/18 at 23:30 Glucagon (Glucagen) 1 mg Q15M PRN IM DECREASED GLUCOSE; Start 12/22/18 at 23:30 Glucose (Glutose) 15 gm Q15M PRN BUCCAL DECREASED GLUCOSE; Start 12/22/18 at 23:30 Diagnostic Test (Pha) (Accu-Chek) 1 ea AC MEALS AND BEDTIME XX Last administered on 12/30/18 11:30; Admin Dose 1 EA; Start 12/22/18 at 23:21 Miscellaneous Information (Pending [facility] Order For Wound Care) This patient dietrich... PRN PRN XX WOUND CARE; Start 12/23/18 at 00:00 Docusate Sodium (Colace) 100 mg BID PO Last administered on 12/30/18 09:57; Admin Dose 100 MG; Start 12/23/18 at 09:00 Senna (Senokot) 1 tab HS PO Last administered on 12/23/18 20:58; Admin Dose 1 TAB; Start 12/23/18 at 21:00 Lactulose (Enulose) 20 gm DAILY PRN PO CONSTIPATION Last administered on 12/28/18 09:30; Admin Dose 20 GM; Start 12/23/18 at 00:00 Bisacodyl (Dulcolax Supp) 10 mg DAILY PRN [place] CONSTIPATION; Start 12/23/18 at 00:00 Acetaminophen (Tylenol Tab) 650 mg Q4H PRN PO PAIN Last administered on 12/30/18 04:18; Admin Dose 650 MG; Start 12/23/18 at 00:00 Linagliptin (Tradjenta) 5 mg DAILY PO Last administered on 12/30/18 08:11; Admin Dose 5 MG; Start 12/23/18 at 09:30 Insulin Aspart (Novolog Insulin Pen) 10 unit WITH MEALS SC Last administered on 12/30/18 12:37; Admin Dose 10 UNIT; Start 12/27/18 at 12:00 Insulin Glargine (Lantus) 20 units DAILY@0800 SC Last administered on 12/30/18 08:11; Admin Dose 20 UNITS; Start 12/28/18 at 08:00 Labetalol HCl (Normodyne) 400 mg Q8 PO Last administered on 12/30/18 14:16; Admin Dose 400 MG; Start 12/27/18 at 14:00 Lisinopril (Zestril) 10 mg DAILY PO Last administered on 12/30/18 09:58; Admin Dose 10 MG; Start 12/27/18 at 09:30 JYOTSNA ANNA NP Dec 30, 2018 14:31
[2018-12-30 20:00] VITALS: BP 140/64; PULSE 81; RESP 18
[2018-12-30] MEDS: SENNA TAB PO SCH (21:00)
[2018-12-30] MEDS: ATORVASTATIN 40 MG TAB PO SCH (21:34)
[2018-12-31 02:00] VITALS: BP 161/70; PULSE 76; RESP 18
[2018-12-31] MEDS: ACCU-CHEK XX SCH ×5 (02:00→21:17)
[2018-12-31] MEDS: LABETALOL 200 MG TAB PO SCH ×3 (05:39→21:48)
[2018-12-31] MEDS: HEPARIN 5,000 UNIT/1 ML VIAL SC SCH ×3 (05:41→21:44)
[2018-12-31 07:00] VITALS: BP 162/74; PULSE 73; RESP 18
[2018-12-31] MEDS: HYDROmorphONE 0.5 MG/0.5 ML SYG IV PRN ×3 (07:41→14:47)
[2018-12-31] MEDS: INSULIN ASPART [NOVOLOG] 3 ML PEN SC SCH ×7 (07:44→21:00)
[2018-12-31] MEDS: INSULIN GLARGINE [LANTus] (100 UNITS/ML) SYG SC SCH (07:45)
--- NOTE | 2018-12-31 08:55 | PN ---
DATE: 12/31/2018 SUBJECTIVE: The patient is stable, no events overnight. No fevers, chills, nausea, or vomiting. OBJECTIVE: VITAL SIGNS: Blood pressure is 161/70, respirations 18, pulse 76, temperature 98.0. HEENT: Head is normocephalic. NECK: Supple. HEART: Regular rate. LUNGS: Show diminished breath sounds at the base. ABDOMEN: Soft, nontender to palpation without rebound or guarding. EXTREMITIES: Negative for clubbing, cyanosis, no edema, positive right below knee amputation. DERMATOLOGIC: No rashes. MUSCULOSKELETAL: No joint effusion. NEUROLOGIC: No change in exam. MEDICATIONS: Reviewed. LABORATORY DATA: Reviewed. ASSESSMENT AND PLAN: 1. Right transtibial amputation. The patient is currently stable. Continue wound care. Continue d ressing changes. 2. Osteomyelitis, right foot. Continue current antibiotic regimen. 3. Diabetes. Continue current insulin regimen, adjust as needed. 4. Hypertension. Continue current blood pressure regimen. 5. Anemia. Monitor hemoglobin and hematocrit levels. 6. Mineral bone disorder. Monitor calcium and phosphorus levels. 7. Neuropathy. Continue Neurontin. 8. Chronic pain syndrome. Continue current treatment. 9. Anxiety disorder. Continue statin therapy. 10. Gastrointestinal and deep vein thrombosis prophylaxis. Dictated By: ISELA BARAJAS DO NR/NTS Conf#: [id number] DID#: [id number] CC: NATANAEL LOVE NP; DREW CHAMPAGNE DO; MARYANN JAVIER MD;*EndCC*
[2018-12-31] MEDS ORDERED: LISINOPRIL 10 MG TAB PO SCH (09:00)
[2018-12-31] MEDS: DOCUSATE SODIUM 100 MG CAP PO SCH ×3 (09:00→20:26)
[2018-12-31] MEDS: FERROUS SULFATE (EC) 325 MG TAB PO SCH (09:45)
[2018-12-31] MEDS: ASPIRIN 81 MG TAB PO SCH (09:45)
[2018-12-31] MEDS: GABAPENTIN 300 MG CAP PO SCH ×3 (09:45→20:23)
[2018-12-31] MEDS: LACTOBACILLUS RHAMNOSUS CAP PO SCH ×3 (09:45→20:22)
[2018-12-31] MEDS: LINAGLIPTIN 5 MG TABLET PO SCH (09:45)
[2018-12-31] MEDS: FOLIC ACID 1 MG TAB PO SCH (09:46)
[2018-12-31] MEDS: NYSTATIN 30 GM POWDER BTL TOP SCH ×2 (09:48→20:25)
[2018-12-31] MEDS: ASCORBIC ACID 500 MG TAB PO SCH (09:49)
[2018-12-31] MEDS: FAMOTIDINE 20 MG TAB PO SCH (09:53)
[2018-12-31] MEDS: AMLODIPINE 10 MG TAB PO SCH (09:53)
--- NOTE | 2018-12-31 13:16 | PN ---
Date/Time of Note Date/Time of Note DATE: 12/31/18 TIME: 13:16 Subjective No new complaints Objective Vital Signs Date Temp Pulse Resp B/P (MAP) Pulse Ox O2 O2 Flow FiO2 Time Delivery Rate 12/31/18 97.8 73 18 162/74 93 Room Air 07:00 (103) Intake and Output 12/30/18 12/30/18 12/31/18 1515:00 23:00 07:00 IntakeIntake Total 1010 ml 240 ml OutputOutput Total 800 ml BalanceBalance 1010 ml -560 ml Exam pulm-cta integ-improving min transfer Results/Medications Result Diagram: 12/28/18 0612 12/28/18 0612 Results 24 hrs Laboratory Tests Test 12/30/18 17:11 12/30/18 21:02 12/31/18 07:39 12/31/18 12:06 Bedside Glucose 118 97 148 249 H Medications Current Medications Atorvastatin Calcium (Lipitor) 40 mg HS PO Last administered on 12/30/18 21:34; Admin Dose 40 MG; Start 12/23/18 at 21:00 Gabapentin (Neurontin) 300 mg TID PO Last administered on 12/31/18 13:13; Admin Dose 300 MG; Start 12/23/18 at 09:00 Heparin Sodium (Porcine) (Heparin (5000 Units/1ml)) 5,000 unit Q8 SC Last administered on 12/31/18 13:14; Admin Dose 5,000 UNIT; Start 12/22/18 at 22:00 Oxycodone HCl (Roxicodone) 5 mg Q4H PRN PO MODERATE PAIN LEVEL 4-6 Last administered on 12/28/18 21:20; Admin Dose 5 MG; Start 12/22/18 at 22:00 Oxycodone HCl (Roxicodone) 10 mg Q4H PRN PO SEVERE PAIN LEVEL 7-10; Start 12/22/18 at 22:00 Hydromorphone HCl (Dilaudid) 0.2 mg Q4H PRN IV BREAKTHROUGH PAIN Last administered on 12/31/18 11:10; Admin Dose 0.2 MG; Start 12/22/18 at 22:00 Ondansetron HCl (Zofran Inj) 4 mg Q4H PRN IV NAUSEA AND/OR VOMITING; Start 12/22/18 at 22:00 Lactobacillus Acidophilus/ Rhamnosus (Culturelle) 1 cap TID PO Last administered on 12/31/18 13:13; Admin Dose 1 CAP; Start 12/23/18 at 09:00 Diphenhydramine HCl (Benadryl) 25 mg Q6H PRN PO ITCHING Last administered on 12/30/18 21:33; Admin Dose 25 MG; Start 12/22/18 at 22:00 Al Hydrox/Mg Hydrox/Simethicone (Mag-Al Plus) 30 ml Q4H PRN PO GASTROINTESTINAL UPSET; Start 12/22/18 at 22:00 Nystatin (Nystatin Powder) 1 applic BID TOP Last administered on 12/31/18 09:48; Admin Dose 1 APPLIC; Start 12/23/18 at 09:00 Diagnostic Test (Pha) (Accu-Chek) 1 ea 02 XX Last administered on 12/28/18 02:40; Admin Dose 1 EA; Start 12/23/18 at 02:00 Insulin Aspart (Novolog Insulin Pen) NOVOLOG *MODERATE* ALGORITHM WITH MEALS BEDTIME SC Last administered on 12/31/18 12:09; Admin Dose 6 UNIT; Start 12/23/18 at 07:35 Amlodipine Besylate (Norvasc) 10 mg DAILY PO Last administered on 12/31/18 09:53; Admin Dose 10 MG; Start 12/23/18 at 09:00 Ascorbic Acid (Vitamin C) 500 mg DAILY PO Last administered on 12/31/18 09:49; Admin Dose 500 MG; Start 12/23/18 at 09:00 Aspirin (Aspirin) 81 mg DAILY PO Last administered on 12/31/18 09:45; Admin Dose 81 MG; Start 12/23/18 at 09:00 Ergocalciferol (Drisdol) 50,000 unit Th@09 PO Last administered on 12/26/18 10:34; Admin Dose 50,000 UNIT; Start 12/26/18 at 09:00 Famotidine (Pepcid) 20 mg DAILY PO Last administered on 12/31/18 09:53; Admin Dose 20 MG; Start 12/23/18 at 09:00 Ferrous Sulfate (Ferrous Sulfate (Ec)) 325 mg DAILY PO Last administered on 12/31/18 09:45; Admin Dose 325 MG; Start 12/23/18 at 09:00 Folic Acid (Folic Acid) 1 mg DAILY PO Last administered on 12/31/18 09:46; Admin Dose 1 MG; Start 12/23/18 at 09:00 Polyethylene Glycol (Miralax) 17 gm DAILY PRN NGT CONSTIPATION; Start 12/22/18 at 22:30 Clonidine (Catapres) 0.1 mg Q6H PRN PO ELEVATED BLOOD PRESSURE Last administered on 12/26/18at 11:55; Admin Dose 0.1 MG; Start 12/22/18 at 22:30 Labetalol HCl (Normodyne) 100 mg BID PRN PO ELEVATED BLOOD PRESSURE Last administered on 12/28/18 09:33; Admin Dose 100 MG; Start 12/22/18 at 22:30 Miscellaneous Information 1 ea NOTE XX ; Start 12/22/18 at 23:30 Glucose (Glutose) 15 gm Q15M PRN PO DECREASED GLUCOSE; Start 12/22/18 at 23:30 Glucose (Glutose) 22.5 gm Q15M PRN PO DECREASED GLUCOSE; Start 12/22/18 at 23:30 Dextrose (D50w Syringe) 25 ml Q15M PRN IV DECREASED GLUCOSE; Start 12/22/18 at 23:30 Dextrose (D50w Syringe) 50 ml Q15M PRN IV DECREASED GLUCOSE; Start 12/22/18 at 23:30 Glucagon (Glucagen) 1 mg Q15M PRN IM DECREASED GLUCOSE; Start 12/22/18 at 23:30 Glucose (Glutose) 15 gm Q15M PRN BUCCAL DECREASED GLUCOSE; Start 12/22/18 at 23:30 Diagnostic Test (Pha) (Accu-Chek) 1 ea AC MEALS AND BEDTIME XX Last administered on 12/31/18at 12:11; Admin Dose 1 EA; Start 12/22/18 at 23:21 Miscellaneous Information (Pending [facility] Order For Wound Care) This patient dietrich... PRN PRN XX WOUND CARE; Start 12/23/18 at 00:00 Docusate Sodium (Colace) 100 mg BID PO Last administered on 12/31/18at 09:45; A dmin Dose 100 MG; Start 12/23/18 at 09:00 Senna (Senokot) 1 tab HS PO Last administered on 12/23/18at 20:58; Admin Dose 1 TAB; Start 12/23/18 at 21:00 Lactulose (Enulose) 20 gm DAILY PRN PO CONSTIPATION Last administered on 12/28/18at 09:30; Admin Dose 20 GM; Start 12/23/18 at 00:00 Bisacodyl (Dulcolax Supp) 10 mg DAILY PRN [place] CONSTIPATION; Start 12/23/18 at 00:00 Acetaminophen (Tylenol Tab) 650 mg Q4H PRN PO PAIN Last administered on 12/30/18at 21:33; Admin Dose 650 MG; Start 12/23/18 at 00:00 Linagliptin (Tradjenta) 5 mg DAILY PO Last administered on 12/31/18at 09:45; Admin Dose 5 MG; Start 12/23/18 at 09:30 Insulin Aspart (Novolog Insulin Pen) 10 unit WITH MEALS SC Last administered on 12/31/18at 12:11; Admin Dose 10 UNIT; Start 12/27/18 at 12:00 Insulin Glargine (Lantus) 20 units DAILY@0800 SC Last administered on 12/31/18at 07:45; Admin Dose 20 UNITS; Start 12/28/18 at 08:00 Labetalol HCl (Normodyne) 400 mg Q8 PO Last administered on 12/31/18at 05:39; Admin Dose 400 MG; Start 12/27/18 at 14:00 Lisinopril (Zestril) 20 mg DAILY PO Last administered on 12/31/18at 09:47; Admin Dose 20 MG; Start 12/31/18 at 09:00 Assessment/Plan Additional Assessment/Plan Rehab- Right [id number] amputation. Continue rehab program Acute and neuropathic pain. Osteomyelitis. Hypertension. Uncontrolled diabetes mellitus type 2. Peripheral vascular disease. Anemia. Acute kidney injury. Hypocalcemia. Hypertension. MARYANN JAVIER MD Dec 31, 2018 13:16
[2018-12-31 14:00] VITALS: BP 160/70; PULSE 70; RESP 18
--- NOTE | 2018-12-31 15:07 | CONS ---
Assessment/Plan Assessment/Plan Hospital Course (Demo Recall) No acute events, no fevers PHYSICAL EXAMINATION: GENERAL: This is obese well-developed elderly woman who is alert, . HEENT: Head is atraumatic, normocephalic. Sclerae are anicteric. Buccal mucosa is pink. NECK: Supple. CHEST: Rise symmetrical. Breath sounds clear. HEART: S1, S2. ABDOMEN: Obese, soft. Bowel tones are present. EXTREMITIES: Without cyanosis. Right lower extremity stump wrapped, immobilizer present Assessment: 1. Funguria, consistent with colonization 2. History of right lower extremity infection with ongoing osteomyelitis status post below-knee amputation 3. Diabetes with diabetic neuropathy 4. Hypertension Plan: Remains stable, off abx, stump incision without evidence of infection Consultation Date/Type/Reason Admit Date/Time Dec 22, 2018 at 20:54 Initial Consult Date Type of Consult id Date/Time of Note DATE: 12/31/18 TIME: 15:06 Exam/Review of Systems Exam Vitals Vital Signs Date Temp Pulse Resp B/P (MAP) Pulse Ox O2 O2 Flow FiO2 Time Delivery Rate 12/31/18 97.8 73 18 162/74 93 Room Air 07:00 (103) Intake and Output 12/30/18 12/30/18 12/31/18 1515:00 23:00 07:00 IntakeIntake Total 1010 ml 240 ml OutputOutput Total 800 ml BalanceBalance 1010 ml -560 ml Results Result Diagram: 12/28/18 0612 12/28/18 0612 Results 24hrs Laboratory Tests Test 12/30/18 17:11 12/30/18 21:02 12/31/18 07:39 12/31/18 12:06 Bedside Glucose 118 97 148 249 H Medications Medication Current Medications Atorvastatin Calcium (Lipitor) 40 mg HS PO Last administered on 12/30/18at 21:34; Admin Dose 40 MG; Start 12/23/18 at 21:00 Gabapentin (Neurontin) 300 mg TID PO Last administered on 12/31/18at 13:13; Admin Dose 300 MG; Start 12/23/18 at 09:00 Heparin Sodium (Porcine) (Heparin (5000 Units/1ml)) 5,000 unit Q8 SC Last administered on 12/31/18at 13:14; Admin Dose 5,000 UNIT; Start 12/22/18 at 22:00 Oxycodone HCl (Roxicodone) 5 mg Q4H PRN PO MODERATE PAIN LEVEL 4-6 Last administered on 12/28/18 21:20; Admin Dose 5 MG; Start 12/22/18 at 22:00 Oxycodone HCl (Roxicodone) 10 mg Q4H PRN PO SEVERE PAIN LEVEL 7-10; Start 12/22/18 at 22:00 Hydromorphone HCl (Dilaudid) 0.2 mg Q4H PRN IV BREAKTHROUGH PAIN Last administered on 12/31/18 14:47; Admin Dose 0.2 MG; Start 12/22/18 at 22:00 Ondansetron HCl (Zofran Inj) 4 mg Q4H PRN IV NAUSEA AND/OR VOMITING; Start 12/22/18 at 22:00 Lactobacillus Acidophilus/ Rhamnosus (Culturelle) 1 cap TID PO Last administered on 12/31/18 13:13; Admin Dose 1 CAP; Start 12/23/18 at 09:00 Diphenhydramine HCl (Benadryl) 25 mg Q6H PRN PO ITCHING Last administered on 12/30/18 21:33; Admin Dose 25 MG; Start 12/22/18 at 22:00 Al Hydrox/Mg Hydrox/Simethicone (Mag-Al Plus) 30 ml Q4H PRN PO GASTROINTESTINAL UPSET; Start 12/22/18 at 22:00 Nystatin (Nystatin Powder) 1 applic BID TOP Last administered on 12/31/18 09:48; Admin Dose 1 APPLIC; Start 12/23/18 at 09:00 Diagnostic Test (Pha) (Accu-Chek) 1 ea 02 XX Last administered on 12/28/18 02:40; Admin Dose 1 EA; Start 12/23/18 at 02:00 Insulin Aspart (Novolog Insulin Pen) NOVOLOG *MODERATE* ALGORITHM WITH MEALS BEDTIME SC Last administered on 12/31/18 12:09; Admin Dose 6 UNIT; Start 12/23/18 at 07:35 Amlodipine Besylate (Norvasc) 10 mg DAILY PO Last administered on 12/31/18 09:53; Admin Dose 10 MG; Start 12/23/18 at 09:00 Ascorbic Acid (Vitamin C) 500 mg DAILY PO Last administered on 12/31/18 09:49; Admin Dose 500 MG; Start 12/23/18 at 09:00 Aspirin (Aspirin) 81 mg DAILY PO Last administered on 12/31/18 09:45; Admin Dose 81 MG; Start 12/23/18 at 09:00 Ergocalciferol (Drisdol) 50,000 unit Th@09 PO Last administered on 12/26/18at 10:34; Admin Dose 50,000 UNIT; Start 12/26/18 at 09:00 Famotidine (Pepcid) 20 mg DAILY PO Last administered on 12/31/18 09:53; Admin Dose 20 MG; Start 12/23/18 at 09:00 Ferrous Sulfate (Ferrous Sulfate (Ec)) 325 mg DAILY PO Last administered on 12/31/18 09:45; Admin Dose 325 MG; Start 12/23/18 at 09:00 Folic Acid (Folic Acid) 1 mg DAILY PO Last administered on 12/31/18 09:46; Admin Dose 1 MG; Start 12/23/18 at 09:00 Polyethylene Glycol (Miralax) 17 gm DAILY PRN NGT CONSTIPATION; Start 12/22/18 at 22:30 Clonidine (Catapres) 0.1 mg Q6H PRN PO ELEVATED BLOOD PRESSURE Last administered on 12/26/18at 11:55; Admin Dose 0.1 MG; Start 12/22/18 at 22:30 Labetalol HCl (Normodyne) 100 mg BID PRN PO ELEVATED BLOOD PRESSURE Last administered on 12/28/18 09:33; Admin Dose 100 MG; Start 12/22/18 at 22:30 Miscellaneous Information 1 ea NOTE XX ; Start 12/22/18 at 23:30 Glucose (Glutose) 15 gm Q15M PRN PO DECREASED GLUCOSE; Start 12/22/18 at 23:30 Glucose (Glutose) 22.5 gm Q15M PRN PO DECREASED GLUCOSE; Start 12/22/18 at 23:30 Dextrose (D50w Syringe) 25 ml Q15M PRN IV DECREASED GLUCOSE; Start 12/22/18 at 23:30 Dextrose (D50w Syringe) 50 ml Q15M PRN IV DECREASED GLUCOSE; Start 12/22/18 at 23:30 Glucagon (Glucagen) 1 mg Q15M PRN IM DECREASED GLUCOSE; Start 12/22/18 at 23:30 Glucose (Glutose) 15 gm Q15M PRN BUCCAL DECREASED GLUCOSE; Start 12/22/18 at 23:30 Diagnostic Test (Pha) (Accu-Chek) 1 ea AC MEALS AND BEDTIME XX Last administered on 12/31/18 12:11; Admin Dose 1 EA; Start 12/22/18 at 23:21 Miscellaneous Information (Pending [facility] Order For Wound Care) This patient dietrich... PRN PRN XX WOUND CARE; Start 12/23/18 at 00:00 Docusate Sodium (Colace) 100 mg BID PO Last administered on 12/31/18 09:45; Admin Dose 100 MG; Start 12/23/18 at 09:00 Senna (Senokot) 1 tab HS PO Last administered on 12/23/18 20:58; Admin Dose 1 TAB; Start 12/23/18 at 21:00 Lactulose (Enulose) 20 gm DAILY PRN PO CONSTIPATION Last administered on 12/28/18 09:30; Admin Dose 20 GM; Start 12/23/18 at 00:00 Bisacodyl (Dulcolax Supp) 10 mg DAILY PRN [place] CONSTIPATION; Start 12/23/18 at 00:00 Acetaminophen (Tylenol Tab) 650 mg Q4H PRN PO PAIN Last administered on 12/30/18 21:33; Admin Dose 650 MG; Start 12/23/18 at 00:00 Linagliptin (Tradjenta) 5 mg DAILY PO Last administered on 12/31/18 09:45; Admin Dose 5 MG; Start 12/23/18 at 09:30 Insulin Aspart (Novolog Insulin Pen) 10 unit WITH MEALS SC Last administered on 12/31/18 12:11; Admin Dose 10 UNIT; Start 12/27/18 at 12:00 Insulin Glargine (Lantus) 20 units DAILY@0800 SC Last administered on 12/31/18 07:45; Admin Dose 20 UNITS; Start 12/28/18 at 08:00 Labetalol HCl (Normodyne) 400 mg Q8 PO Last administered on 12/31/18 05:39; Admin Dose 400 MG; Start 12/27/18 at 14:00 Lisinopril (Zestril) 20 mg DAILY PO Last administered on 12/31/18 09:47; Admin Dose 20 MG; Start 12/31/18 at 09:00 JYOTSNA ANNA NP Dec 31, 2018 15:07
[2018-12-31] MEDS: ACETAMINOPHEN 325 MG TAB PO PRN (19:36)
[2018-12-31] MEDS: ATORVASTATIN 40 MG TAB PO SCH (20:23)
[2018-12-31] MEDS: SENNA TAB PO SCH (20:26)
[2018-12-31 20:28] VITALS: BP 154/77; PULSE 91; RESP 18
[2019-01-01 02:00] VITALS: BP 162/80; PULSE 69; RESP 18
[2019-01-01] MEDS: ACCU-CHEK XX SCH ×5 (02:00→21:00)
[2019-01-01] MEDS: HEPARIN 5,000 UNIT/1 ML VIAL SC SCH ×3 (05:55→21:17)
[2019-01-01] MEDS: LABETALOL 200 MG TAB PO SCH ×3 (05:57→21:16)
[2019-01-01 07:00] VITALS: BP 120/61; PULSE 59; RESP 18
[2019-01-01] MEDS: INSULIN ASPART [NOVOLOG] 3 ML PEN SC SCH ×7 (07:49→21:00)
[2019-01-01] MEDS: LACTOBACILLUS RHAMNOSUS CAP PO SCH ×3 (07:50→21:09)
[2019-01-01] MEDS: INSULIN GLARGINE [LANTus] (100 UNITS/ML) SYG SC SCH (07:54)
[2019-01-01] MEDS: LINAGLIPTIN 5 MG TABLET PO SCH (08:11)
[2019-01-01] MEDS: HYDROmorphONE 0.5 MG/0.5 ML SYG IV PRN ×4 (08:12→19:42)
--- NOTE | 2019-01-01 09:07 | PN ---
DATE: 01/01/2019 SUBJECTIVE: The patient is stable, no events overnight. No fevers, chills, nausea, or vomiting. OBJECTIVE: VITAL SIGNS: Blood pressure is 162/80, respirations 18, pulse 69, temperature 98.2. HEENT: Head is normocephalic. NECK: Supple. HEART: Regular rate. LUNGS: Show diminished breath sounds at the base. ABDOMEN: Soft, nontender to palpation without rebound or guarding. EXTREMITIES: Negative for clubbing, cyanosis, no edema. DERMATOLOGIC: No rashes. MUSCULOSKELETAL: No joint effusion. NEUROLOGIC: No change in exam. MEDICATIONS: The patient's medications have been reviewed. LABORATORY DATA: Shows sodium 142, potassium 4.5, BUN 32, creatinine 1.85. White count 6.4, hemoglo bin 10.3, platelet count is 280. ASSESSMENT AND PLAN: 1. Right transtibial amputation. She is currently stable. Continue wound care, continue dressing c hanges. 2. Osteomyelitis, right foot. The patient is completing antibiotic course. 3. Nonoliguric acute kidney injury on top of chronic kidney disease. Etiology is likely due to PALOMO inhibitor effect. Plan is to hold PALOMO inhibitor. We will monitor renal function closely. 4. Hypertension. Blood pressure remains elevated. We will adjust blood pressure regimen. 5. Diabetes. Continue current insulin regimen, adjust as needed. 6. Anemia. Continue to monitor hemoglobin and hematocrit levels. 7. Mineral bone disorder, monitor calcium and phosphorus levels. 8. Neuropathy. Continue Neurontin. 9. Chronic pain syndrome. Continue current pain regimen. 10. Anxiety disorder. 11. Gastrointestinal and deep vein thrombosis prophylaxis. Dictated By: ISELA BARAJAS DO NR/NTS Conf#: [id number] DID#: [id number] CC: NATANAEL LOVE NP; MARYANN JAVIER MD; DREW CHAMPAGNE DO;*EndCC*
[2019-01-01] MEDS: DOCUSATE SODIUM 100 MG CAP PO SCH ×2 (09:11→21:09)
[2019-01-01] MEDS: GABAPENTIN 300 MG CAP PO SCH ×3 (09:11→21:08)
[2019-01-01] MEDS: ASPIRIN 81 MG TAB PO SCH (09:11)
[2019-01-01] MEDS: ASCORBIC ACID 500 MG TAB PO SCH (09:11)
[2019-01-01] MEDS: FAMOTIDINE 20 MG TAB PO SCH (09:11)
[2019-01-01] MEDS: FOLIC ACID 1 MG TAB PO SCH (09:11)
[2019-01-01] MEDS: AMLODIPINE 10 MG TAB PO SCH (09:12)
[2019-01-01] MEDS: FERROUS SULFATE (EC) 325 MG TAB PO SCH (09:12)
[2019-01-01] MEDS: NYSTATIN 30 GM POWDER BTL TOP SCH ×2 (09:13→21:10)
--- NOTE | 2019-01-01 12:00 | CONS ---
Assessment/Plan Assessment/Plan Hospital Course (Demo Recall) No acute events, looks comfortable PHYSICAL EXAMINATION: GENERAL: This is obese well-developed elderly woman who is alert, . HEENT: Head is atraumatic, normocephalic. Sclerae are anicteric. Buccal mucosa is pink. NECK: Supple. CHEST: Rise symmetrical. Breath sounds clear. HEART: S1, S2. ABDOMEN: Obese, soft. Bowel tones are present. EXTREMITIES: Without cyanosis. Right lower extremity stump wrapped, immobilizer present Assessment: 1. Funguria, consistent with colonization 2. History of right lower extremity osteomyelitis status post below-knee amputation 3. Diabetes with diabetic neuropathy 4. Hypertension Plan: Remains stable, off abx, continue PT Consultation Date/Type/Reason Admit Date/Time Dec 22, 2018 at 20:54 Initial Consult Date Type of Consult id Date/Time of Note DATE: 01/01/19 TIME: 11:59 Exam/Review of Systems Exam Vitals Vital Signs Date Temp Pulse Resp B/P (MAP) Pulse Ox O2 O2 Flow FiO2 Time Delivery Rate 01/01/19 98.0 59 18 120/61 94 Room Air 07:00 (80) Intake and Output 12/31/18 12/31/18 01/01/19 1515:00 23:00 07:00 IntakeIntake Total 1200 ml 1800 ml OutputOutput Total 900 ml 800 ml 800 ml BalanceBalance -900 ml 400 ml 1000 ml Results Result Diagram: 01/01/19 0626 01/01/19 0626 Results 24hrs Laboratory Tests Test 12/31/18 12:06 12/31/18 17:23 12/31/18 20:21 01/01/19 06:26 Bedside Glucose 249 H 213 168 White Blood Count 6.4 Red Blood Count 3.58 L Hemoglobin 10.3 L Hematocrit 34.5 L Mean Corpuscular 96.4 Volume Mean Corpuscular 28.8 L Hemoglobin Mean Corpuscular 29.9 L Hemoglobin Concent Red Cell 15.2 H Distribution Width Platelet Count 280 Mean Platelet Volume 11.0 H Immature 0.300 Granulocytes % Neutrophils % 52.7 Lymphocytes % 24.4 Monocytes % 10.2 Eosinophils % 11.8 H Basophils % 0.6 Nucleated Red Blood 0.0 Cells % Immature 0.020 Granulocytes # Neutrophils # 3.4 Lymphocytes # 1.6 Monocytes # 0.7 Eosinophils # 0.8 H Basophils # 0.0 Nucleated Red Blood 0.0 Cells # Sodium Level 142 Potassium Level 4.5 Chloride Level 106 Carbon Dioxide Level 27 Anion Gap 9 Blood Urea Nitrogen 32 H Creatinine 1.85 H Est Glomerular 28 L Filtrat Rate mL/min Glucose Level 163 Calcium Level 8.8 Phosphorus Level 5.2 H Magnesium Level 2.1 Test 01/01/19 07:43 Bedside Glucose 158 Medications Medication Current Medications Atorvastatin Calcium (Lipitor) 40 mg HS PO Last administered on 12/31/18 20:23; Admin Dose 40 MG; Start 12/23/18 at 21:00 Gabapentin (Neurontin) 300 mg TID PO Last administered on 01/01/19 09:11; Admin Dose 300 MG; Start 12/23/18 at 09:00 Heparin Sodium (Porcine) (Heparin (5000 Units/1ml)) 5,000 unit Q8 SC Last administered on 01/01/19 05:55; Admin Dose 5,000 UNIT; Start 12/22/18 at 22:00 Oxycodone HCl (Roxicodone) 5 mg Q4H PRN PO MODERATE PAIN LEVEL 4-6 Last administered on 12/28/18 21:20; Admin Dose 5 MG; Start 12/22/18 at 22:00 Oxycodone HCl (Roxicodone) 10 mg Q4H PRN PO SEVERE PAIN LEVEL 7-10; Start 12/22/18 at 22:00 Hydromorphone HCl (Dilaudid) 0.2 mg Q4H PRN IV BREAKTHROUGH PAIN Last administered on 01/01/19 11:58; Admin Dose 0.2 MG; Start 12/22/18 at 22:00 Ondansetron HCl (Zofran Inj) 4 mg Q4H PRN IV NAUSEA AND/OR VOMITING; Start 12/22/18 at 22:00 Lactobacillus Acidophilus/ Rhamnosus (Culturelle) 1 cap TID PO Last administered on 01/01/19 07:50; Admin Dose 1 CAP; Start 12/23/18 at 09:00 Diphenhydramine HCl (Benadryl) 25 mg Q6H PRN PO ITCHING Last administered on 12/30/18 21:33; Admin Dose 25 MG; Start 12/22/18 at 22:00 Al Hydrox/Mg Hydrox/Simethicone (Mag-Al Plus) 30 ml Q4H PRN PO GASTROINTESTINAL UPSET; Start 12/22/18 at 22:00 Nystatin (Nystatin Powder) 1 applic BID TOP Last administered on 01/01/19 09:13; Admin Dose 1 APPLIC; Start 12/23/18 at 09:00 Diagnostic Test (Pha) (Accu-Chek) 1 ea 02 XX Last administered on 12/28/18 02:40; Admin Dose 1 EA; Start 12/23/18 at 02:00 Insulin Aspart (Novolog Insulin Pen) NOVOLOG *MODERATE* ALGORITHM WITH MEALS BEDTIME SC Last administered on 01/01/19 07:49; Admin Dose 2 UNIT; Start 12/23/18 at 07:35 Amlodipine Besylate (Norvasc) 10 mg DAILY PO Last administered on 01/01/19 09:12; Admin Dose 10 MG; Start 12/23/18 at 09:00 Ascorbic Acid (Vitamin C) 500 mg DAILY PO Last administered on 01/01/19 09:11; Admin Dose 500 MG; Start 12/23/18 at 09:00 Aspirin (Aspirin) 81 mg DAILY PO Last administered on 01/01/19 09:11; Admin Dose 81 MG; Start 12/23/18 at 09:00 Ergocalciferol (Drisdol) 50,000 unit Th@09 PO Last administered on 12/26/18 10:34; Admin Dose 50,000 UNIT; Start 12/26/18 at 09:00 Famotidine (Pepcid) 20 mg DAILY PO Last administered on 01/01/19 09:11; Admin Dose 20 MG; Start 12/23/18 at 09:00 Ferrous Sulfate (Ferrous Sulfate (Ec)) 325 mg DAILY PO Last administered on 01/01/19 09:12; Admin Dose 325 MG; Start 12/23/18 at 09:00 Folic Acid (Folic Acid) 1 mg DAILY PO Last administered on 01/01/19 09:11; Admin Dose 1 MG; Start 12/23/18 at 09:00 Polyethylene Glycol (Miralax) 17 gm DAILY PRN N[place] CONSTIPATION; Start 12/22/18 at 22:30 Clonidine (Catapres) 0.1 mg Q6H PRN PO ELEVATED BLOOD PRESSURE Last administered on 12/26/18 11:55; Admin Dose 0.1 MG; Start 12/22/18 at 22:30 Labetalol HCl (Normodyne) 100 mg BID PRN PO ELEVATED BLOOD PRESSURE Last administered on 12/28/18 09:33; Admin Dose 100 MG; Start 12/22/18 at 22:30 Miscellaneous Information 1 ea NOTE XX ; Start 12/22/18 at 23:30 Glucose (Glutose) 15 gm Q15M PRN PO DECREASED GLUCOSE; Start 12/22/18 at 23:30 Glucose (Glutose) 22.5 gm Q15M PRN PO DECREASED GLUCOSE; Start 12/22/18 at 23:30 Dextrose (D50w Syringe) 25 ml Q15M PRN IV DECREASED GLUCOSE; Start 12/22/18 at 23:30 Dextrose (D50w Syringe) 50 ml Q15M PRN IV DECREASED GLUCOSE; Start 12/22/18 at 23:30 Glucagon (Glucagen) 1 mg Q15M PRN IM DECREASED GLUCOSE; Start 12/22/18 at 23:30 Glucose (Glutose) 15 gm Q15M PRN BUCCAL DECREASED GLUCOSE; Start 12/22/18 at 23:30 Diagnostic Test (Pha) (Accu-Chek) 1 ea AC MEALS AND BEDTIME XX Last administered on 01/01/19 11:37; Admin Dose 1 EA; Start 12/22/18 at 23:21 Miscellaneous Information (Pending [facility] Order For Wound Care) This patient dietrich... PRN PRN XX WOUND CARE; Start 12/23/18 at 00:00 Docusate Sodium (Colace) 100 mg BID PO Last administered on 01/01/19 09:11; Admin Dose 100 MG; Start 12/23/18 at 09:00 Senna (Senokot) 1 tab HS PO Last administered on 12/23/18at 20:58; Admin Dose 1 TAB; Start 12/23/18 at 21:00 Lactulose (Enulose) 20 gm DAILY PRN PO CONSTIPATION Last administered on 12/28/18 09:30; Admin Dose 20 GM; Start 12/23/18 at 00:00 Bisacodyl (Dulcolax Supp) 10 mg DAILY PRN [place] CONSTIPATION; Start 12/23/18 at 00:00 Acetaminophen (Tylenol Tab) 650 mg Q4H PRN PO PAIN Last administered on 12/31/18 19:36; Admin Dose 650 MG; Start 12/23/18 at 00:00 Linagliptin (Tradjenta) 5 mg DAILY PO Last administered on 01/01/19 08:11; Admin Dose 5 MG; Start 12/23/18 at 09:30 Insulin Aspart (Novolog Insulin Pen) 10 unit WITH MEALS SC Last administered on 01/01/19 07:50; Admin Dose 10 UNIT; Start 12/27/18 at 12:00 Insulin Glargine (Lantus) 20 units DAILY@0800 SC Last administered on 01/01/19 07:54; Admin Dose 20 UNITS; Start 12/28/18 at 08:00 Labetalol HCl (Normodyne) 400 mg Q8 PO Last administered on 01/01/19 05:57; Admin Dose 400 MG; Start 12/27/18 at 14:00 Lisinopril (Zestril) 20 mg DAILY PO Last administered on 12/31/18 09:47; Admin Dose 20 MG; Start 12/31/18 at 09:00; Status Hold Hydralazine HCl (Apresoline) 10 mg BID PO Last administered on 01/01/19 09:13; Admin Dose 10 MG; Start 01/01/19 at 09:00 JYOTSNA ANNA NP Jan 01, 2019 12:00
--- NOTE | 2019-01-01 13:15 | PN ---
Date/Time of Note Date/Time of Note DATE: 01/01/19 TIME: 13:15 Subjective Patient motivated for activities Objective Vital Signs Date Temp Pulse Resp B/P (MAP) Pulse Ox O2 O2 Flow FiO2 Time Delivery Rate 01/01/19 98.0 59 18 120/61 94 Room Air 07:00 (80) Intake and Output 12/31/18 12/31/18 01/01/19 1515:00 23:00 07:00 IntakeIntake Total 1200 ml 1800 ml OutputOutput Total 900 ml 800 ml 800 ml BalanceBalance -900 ml 400 ml 1000 ml Exam pulm-cta abd-soft cga transfer Results/Medications Result Diagram: 01/01/19 0626 01/01/19 0626 Results 24 hrs Laboratory Tests Test 12/31/18 17:23 12/31/18 20:21 01/01/19 06:26 01/01/19 07:43 Bedside Glucose 213 168 158 White Blood Count 6.4 Red Blood Count 3.58 L Hemoglobin 10.3 L Hematocrit 34.5 L Mean Corpuscular 96.4 Volume Mean Corpuscular 28.8 L Hemoglobin Mean Corpuscular 29.9 L Hemoglobin Concent Red Cell 15.2 H Distribution Width Platelet Count 280 Mean Platelet Volume 11.0 H Immature 0.300 Granulocytes % Neutrophils % 52.7 Lymphocytes % 24.4 Monocytes % 10.2 Eosinophils % 11.8 H Basophils % 0.6 Nucleated Red Blood 0.0 Cells % Immature 0.020 Granulocytes # Neutrophils # 3.4 Lymphocytes # 1.6 Monocytes # 0.7 Eosinophils # 0.8 H Basophils # 0.0 Nucleated Red Blood 0.0 Cells # Sodium Level 142 Potassium Level 4.5 Chloride Level 106 Carbon Dioxide Level 27 Anion Gap 9 Blood Urea Nitrogen 32 H Creatinine 1.85 H Est Glomerular 28 L Filtrat Rate mL/min Glucose Level 163 Calcium Level 8.8 Phosphorus Level 5.2 H Magnesium Level 2.1 Test 01/01/19 12:00 Bedside Glucose 202 Medications Current Medications Atorvastatin Calcium (Lipitor) 40 mg HS PO Last administered on 12/31/18at 20:23; Admin Dose 40 MG; Start 12/23/18 at 21:00 Gabapentin (Neurontin) 300 mg TID PO Last administered on 01/01/19at 09:11; Admin Dose 300 MG; Start 12/23/18 at 09:00 Heparin Sodium (Porcine) (Heparin (5000 Units/1ml)) 5,000 unit Q8 SC Last administered on 01/01/19 05:55; Admin Dose 5,000 UNIT; Start 12/22/18 at 22:00 Oxycodone HCl (Roxicodone) 5 mg Q4H PRN PO MODERATE PAIN LEVEL 4-6 Last administered on 12/28/18 21:20; Admin Dose 5 MG; Start 12/22/18 at 22:00 Oxycodone HCl (Roxicodone) 10 mg Q4H PRN PO SEVERE PAIN LEVEL 7-10; Start 12/22/18 at 22:00 Hydromorphone HCl (Dilaudid) 0.2 mg Q4H PRN IV BREAKTHROUGH PAIN Last admini stered on 01/01/19 11:58; Admin Dose 0.2 MG; Start 12/22/18 at 22:00 Ondansetron HCl (Zofran Inj) 4 mg Q4H PRN IV NAUSEA AND/OR VOMITING; Start 12/22/18 at 22:00 Lactobacillus Acidophilus/ Rhamnosus (Culturelle) 1 cap TID PO Last administered on 01/01/19 07:50; Admin Dose 1 CAP; Start 12/23/18 at 09:00 Diphenhydramine HCl (Benadryl) 25 mg Q6H PRN PO ITCHING Last administered on 12/30/18 21:33; Admin Dose 25 MG; Start 12/22/18 at 22:00 Al Hydrox/Mg Hydrox/Simethicone (Mag-Al Plus) 30 ml Q4H PRN PO GASTROINTESTINAL UPSET; Start 12/22/18 at 22:00 Nystatin (Nystatin Powder) 1 applic BID TOP Last administered on 01/01/19 09:13; Admin Dose 1 APPLIC; Start 12/23/18 at 09:00 Diagnostic Test (Pha) (Accu-Chek) 1 ea 02 XX Last administered on 12/28/18at 02:40; Admin Dose 1 EA; Start 12/23/18 at 02:00 Insulin Aspart (Novolog Insulin Pen) NOVOLOG *MODERATE* ALGORITHM WITH MEALS BEDTIME SC Last administered on 01/01/19 12:02; Admin Dose 4 UNIT; Start 12/23/18 at 07:35 Amlodipine Besylate (Norvasc) 10 mg DAILY PO Last administered on 01/01/19 09:12; Admin Dose 10 MG; Start 12/23/18 at 09:00 Ascorbic Acid (Vitamin C) 500 mg DAILY PO Last administered on 01/01/19 09:11; Admin Dose 500 MG; Start 12/23/18 at 09:00 Aspirin (Aspirin) 81 mg DAILY PO Last administered on 01/01/19 09:11; Admin Dose 81 MG; Start 12/23/18 at 09:00 Ergocalciferol (Drisdol) 50,000 unit Th@09 PO Last administered on 12/26/18 10:34; Admin Dose 50,000 UNIT; Start 12/26/18 at 09:00 Famotidine (Pepcid) 20 mg DAILY PO Last administered on 01/01/19 09:11; Admin Dose 20 MG; Start 12/23/18 at 09:00 Ferrous Sulfate (Ferrous Sulfate (Ec)) 325 mg DAILY PO Last administered on 01/01/19 09:12; Admin Dose 325 MG; Start 12/23/18 at 09:00 Folic Acid (Folic Acid) 1 mg DAILY PO Last administered on 01/01/19 09:11; Admin Dose 1 MG; Start 12/23/18 at 09:00 Polyethylene Glycol (Miralax) 17 gm DAILY PRN NGT CONSTIPATION; Start 12/22/18 at 22:30 Clonidine (Catapres) 0.1 mg Q6H PRN PO ELEVATED BLOOD PRESSURE Last administered on 12/26/18 11:55; Admin Dose 0.1 MG; Start 12/22/18 at 22:30 Labetalol HCl (Normodyne) 100 mg BID PRN PO ELEVATED BLOOD PRESSURE Last administered on 12/28/18 09:33; Admin Dose 100 MG; Start 12/22/18 at 22:30 Miscellaneous Information 1 ea NOTE XX ; Start 12/22/18 at 23:30 Glucose (Glutose) 15 gm Q15M PRN PO DECREASED GLUCOSE; Start 12/22/18 at 23:30 Glucose (Glutose) 22.5 gm Q15M PRN PO DECREASED GLUCOSE; Start 12/22/18 at 23:30 Dextrose (D50w Syringe) 25 ml Q15M PRN IV DECREASED GLUCOSE; Start 12/22/18 at 23:30 Dextrose (D50w Syringe) 50 ml Q15M PRN IV DECREASED GLUCOSE; Start 12/22/18 at 23:30 Glucagon (Glucagen) 1 mg Q15M PRN IM DECREASED GLUCOSE; Start 12/22/18 at 23:30 Glucose (Glutose) 15 gm Q15M PRN BUCCAL DECREASED GLUCOSE; Start 12/22/18 at 23:30 Diagnostic Test (Pha) (Accu-Chek) 1 ea AC MEALS AND BEDTIME XX Last administered on 01/01/19 11:37; Admin Dose 1 EA; Start 12/22/18 at 23:21 [facility]isc[facility] This patient dietrich... PRN PRN XX WOUND CARE; Start 12/23/18 at 00:00 Docusate Sodium (Colace) 100 mg BID PO Last administered on 01/01/19 09:11; Admin Dose 100 MG; Start 12/23/18 at 09:00 Senna (Senokot) 1 tab HS PO Last administered on 12/23/18 20:58; Admin Dose 1 TAB; Start 12/23/18 at 21:00 Lactulose (Enulose) 20 gm DAILY PRN PO CONSTIPATION Last administered on 12/28/18 09:30; Admin Dose 20 GM; Start 12/23/18 at 00:00 Bisacodyl (Dulcolax Supp) 10 mg DAILY PRN [place] CONSTIPATION; Start 12/23/18 at 00:00 Acetaminophen (Tylenol Tab) 650 mg Q4H PRN PO PAIN Last administered on 12/31/18 19:36; Admin Dose 650 MG; Start 12/23/18 at 00:00 Linagliptin (Tradjenta) 5 mg DAILY PO Last administered on 01/01/19 08:11; Admin Dose 5 MG; Start 12/23/18 at 09:30 Insulin Aspart (Novolog Insulin Pen) 10 unit WITH MEALS SC Last administered on 01/01/19 12:04; Admin Dose 10 UNIT; Start 12/27/18 at 12:00 Insulin Glargine (Lantus) 20 units DAILY@0800 SC Last administered on 01/01/19 07:54; Admin Dose 20 UNITS; Start 12/28/18 at 08:00 Labetalol HCl (Normodyne) 400 mg Q8 PO Last administered on 3/20/19at 05:57; Admin Dose 400 MG; Start 12/27/18 at 14:00 Lisinopril (Zestril) 20 mg DAILY PO Last administered on 12/31/18at 09:47; Admin Dose 20 MG; Start 12/31/18 at 09:00; Status Hold Hydralazine HCl (Apresoline) 10 mg BID PO Last administered on 01/01/19at 09:13; Admin Dose 10 MG; Start 01/01/19 at 09:00 Assessment/Plan Additional Assessment/Plan Rehab- Right [id number] amputation. Continue rehab treatment plan Acute and neuropathic pain- continue current meds Osteomyelitis. Hypertension. Uncontrolled diabetes mellitus type 2. Peripheral vascular disease. Anemia. Acute kidney injury. Hypocalcemia. Hypertension. MARYANN JAVIER MD Jan 01, 2019 13:15
[2019-01-01 14:00] VITALS: BP 152/70; PULSE 79; RESP 18
[2019-01-01 20:00] VITALS: BP 142/75; PULSE 75; RESP 18
[2019-01-01] MEDS: ATORVASTATIN 40 MG TAB PO SCH (21:08)
[2019-01-01] MEDS: SENNA TAB PO SCH (21:09)
[2019-01-02] MEDS: ACCU-CHEK XX SCH ×5 (02:00→20:53)
[2019-01-02 02:02] VITALS: BP_SYST 142; BP_SYST 147; BP_DIAS 67; PULSE 75; RESP 18
[2019-01-02] MEDS: HEPARIN 5,000 UNIT/1 ML VIAL SC SCH ×3 (06:05→21:08)
[2019-01-02] MEDS: LABETALOL 200 MG TAB PO SCH ×3 (06:06→20:58)
[2019-01-02 08:00] VITALS: BP 131/75; PULSE 80; RESP 19
[2019-01-02] MEDS: INSULIN ASPART [NOVOLOG] 3 ML PEN SC SCH ×7 (08:12→20:53)
[2019-01-02] MEDS: INSULIN GLARGINE [LANTus] (100 UNITS/ML) SYG SC SCH (08:27)
[2019-01-02] MEDS: FAMOTIDINE 20 MG TAB PO SCH (08:49)
[2019-01-02] MEDS: LINAGLIPTIN 5 MG TABLET PO SCH (08:49)
--- NOTE | 2019-01-02 08:50 | PN ---
DATE: 01/02/2019 SUBJECTIVE: The patient is stable, no events overnight. OBJECTIVE: VITAL SIGNS: Blood pressure is 147/67, respiration 18, pulse 75, temperature 98.0. HEENT: Head is normocephalic. NECK: Supple. HEART: Regular rate. LUNGS: Show diminished breath sounds at the base. ABDOMEN: Soft, nontender to palpation without rebound or guarding. EXTREMITIES: Negative for clubbing, cyanosis, no edema. DERMATOLOGIC: No rashes. MUSCULOSKELETAL: No joint effusion. NEUROLOGIC: No change in exam. MEDICATIONS: Reviewed. LABORATORY DATA: Showed a glucose of 222. A repeat renal panel is pending. ASSESSMENT AND PLAN: 1. Right transtibial amputation. The patient is currently stable. Continue wound care, continue dr francis cabrera. 2. Right foot osteomyelitis. The patient has completed antibiotic course. 3. Nonoliguric acute kidney injury on top of chronic kidney disease, stage III. Etiology of BRIGID is likely due to PALOMO inhibitor effect. PALOMO inhibitor was placed on hold. Will repeat renal panel, sissy silveira. 4. Hypertension. Blood pressure slowly improving. Continue current blood pressure regimen, adjust as needed. 5. Diabetes. The patient had noted elevated glucose level. Will adjust insulin regimen. 6. Anemia. Monitor hemoglobin and hematocrit levels. 7. Mineral bone disorder, monitor calcium and phosphorus levels. 8. Neuropathy. Continue Neurontin. 9. Chronic pain syndrome. Continue current pain regimen. 10. Anxiety disorder. 11. Gastrointestinal and deep venous thrombosis prophylaxis. Dictated By: ISELA BARAJAS DO NR/NTS Conf#: [id number] DID#: [id number] CC: MARYANN JAVIER MD; DREW CHAMPAGNE DO; NATANAEL LOVE EMBEDDED SOFTWARE ENGINEER;*EndCC*
[2019-01-02] MEDS: DOCUSATE SODIUM 100 MG CAP PO SCH ×2 (09:00→20:52)
[2019-01-02] MEDS: GABAPENTIN 300 MG CAP PO SCH ×3 (10:15→20:52)
[2019-01-02] MEDS: FERROUS SULFATE (EC) 325 MG TAB PO SCH (10:15)
[2019-01-02] MEDS: AMLODIPINE 10 MG TAB PO SCH (10:16)
[2019-01-02] MEDS: ASCORBIC ACID 500 MG TAB PO SCH (10:16)
[2019-01-02] MEDS: FOLIC ACID 1 MG TAB PO SCH (10:16)
[2019-01-02] MEDS: ASPIRIN 81 MG TAB PO SCH (10:16)
[2019-01-02] MEDS: NYSTATIN 30 GM POWDER BTL TOP SCH ×2 (10:16→20:54)
[2019-01-02] MEDS: ERGOCALCIFEROL 50,000 UNIT CAP PO SCH (10:21)
[2019-01-02] MEDS: LACTOBACILLUS RHAMNOSUS CAP PO SCH ×3 (10:21→20:52)
--- NOTE | 2019-01-02 12:56 | PN ---
Date/Time of Note Date/Time of Note DATE: 01/02/19 TIME: 12:56 Subjective Patient doing well Objective Vital Signs Date Temp Pulse Resp B/P (MAP) Pulse Ox O2 O2 Flow FiO2 Time Delivery Rate 01/02/19 98.0 80 19 131/75 Room Air 08:00 (93) 01/02/19 94 02:02 Intake and Output 01/01/19 01/01/19 01/02/19 1515:00 23:00 07:00 IntakeIntake Total 250 ml 1200 ml 850 ml OutputOutput Total 600 ml BalanceBalance 250 ml 600 ml 850 ml Exam pulm-cta abd-soft sba transfer Results/Medications Result Diagram: 01/01/19 0626 01/02/19 1033 Results 24 hrs Laboratory Tests Test 01/01/19 17:30 01/01/19 21:06 01/02/19 07:50 01/02/19 10:33 Bedside Glucose 149 134 222 H Sodium Level 143 Potassium Level 5.6 H Chloride Level 108 Carbon Dioxide Level 29 Anion Gap 6 Blood Urea Nitrogen 36 H Creatinine 1.80 H Est Glomerular 29 L Filtrat Rate mL/min Glucose Level 193 Calcium Level 9.5 Test 01/02/19 12:08 Bedside Glucose 196 Medications Current Medications Atorvastatin Calcium (Lipitor) 40 mg HS PO Last administered on 01/01/19at 21:08; Admin Dose 40 MG; Start 12/23/18 at 21:00 Gabapentin (Neurontin) 300 mg TID PO Last administered on 01/02/19at 10:15; Admin Dose 300 MG; Start 12/23/18 at 09:00 Heparin Sodium (Porcine) (Heparin (5000 Units/1ml)) 5,000 unit Q8 SC Last administered on 01/02/19at 06:05; Admin Dose 5,000 UNIT; Start 12/22/18 at 22:00 Oxycodone HCl (Roxicodone) 5 mg Q4H PRN PO MODERATE PAIN LEVEL 4-6 Last administered on 12/28/18at 21:20; Admin Dose 5 MG; Start 12/22/18 at 22:00 Oxycodone HCl (Roxicodone) 10 mg Q4H PRN PO SEVERE PAIN LEVEL 7-10; Start 12/22/18 at 22:00 Hydromorphone HCl (Dilaudid) 0.2 mg Q4H PRN IV BREAKTHROUGH PAIN Last administered on 01/01/19 19:42; Admin Dose 0.2 MG; Start 12/22/18 at 22:00 Ondansetron HCl (Zofran Inj) 4 mg Q4H PRN IV NAUSEA AND/OR VOMITING; Start 12/22/18 at 22:00 Lactobacillus Acidophilus/ Rhamnosus (Culturelle) 1 cap TID PO Last administered on 01/02/19 10:21; Admin Dose 1 CAP; Start 12/23/18 at 09:00 Diphenhydramine HCl (Benadryl) 25 mg Q6H PRN PO ITCHING Last administered on 12/30/18 21:33; Admin Dose 25 MG; Start 12/22/18 at 22:00 Al Hydrox/Mg Hydrox/Simethicone (Mag-Al Plus) 30 ml Q4H PRN PO GASTROINTESTINAL UPSET Last administered on 01/02/19 08:48; Admin Dose 30 ML; Start 12/22/18 at 22:00 Nystatin (Nystatin Powder) 1 applic BID TOP Last administered on 01/02/19 10 :16; Admin Dose 1 APPLIC; Start 12/23/18 at 09:00 Diagnostic Test (Pha) (Accu-Chek) 1 ea 02 XX Last administered on 12/28/18 02:40; Admin Dose 1 EA; Start 12/23/18 at 02:00 Insulin Aspart (Novolog Insulin Pen) NOVOLOG *MODERATE* ALGORITHM WITH MEALS BEDTIME SC Last administered on 01/02/19 12:19; Admin Dose 4 UNIT; Start 12/23/18 at 07:35 Amlodipine Besylate (Norvasc) 10 mg DAILY PO Last administered on 01/02/19 10:16; Admin Dose 10 MG; Start 12/23/18 at 09:00 Ascorbic Acid (Vitamin C) 500 mg DAILY PO Last administered on 01/02/19 10:16; Admin Dose 500 MG; Start 12/23/18 at 09:00 Aspirin (Aspirin) 81 mg DAILY PO Last administered on 01/02/19 10:16; Admin Dose 81 MG; Start 12/23/18 at 09:00 Ergocalciferol (Drisdol) 50,000 unit Th@09 PO Last administered on 01/02/19 10:21; Admin Dose 50,000 UNIT; Start 12/26/18 at 09:00 Famotidine (Pepcid) 20 mg DAILY PO Last administered on 01/02/19at 08:49; Admin Dose 20 MG; Start 12/23/18 at 09:00 Ferrous Sulfate (Ferrous Sulfate (Ec)) 325 mg DAILY PO Last administered on 01/02/19at 10:15; Admin Dose 325 MG; Start 12/23/18 at 09:00 Folic Acid (Folic Acid) 1 mg DAILY PO Last administered on 01/02/19at 10:16; Admin Dose 1 MG; Start 12/23/18 at 09:00 Polyethylene Glycol (Miralax) 17 gm DAILY PRN NGT CONSTIPATION; Start 12/22/18 at 22:30 Clonidine (Catapres) 0.1 mg Q6H PRN PO ELEVATED BLOOD PRESSURE Last administered on 12/26/18at 11:55; Admin Dose 0.1 MG; Start 12/22/18 at 22:30 Labetalol HCl (Normodyne) 100 mg BID PRN PO ELEVATED BLOOD PRESSURE Last administered on 12/28/18at 09:33; Admin Dose 100 MG; Start 12/22/18 at 22:30 Miscellaneous Information 1 ea NOTE XX ; Start 12/22/18 at 23:30 Glucose (Glutose) 15 gm Q15M PRN PO DECREASED GLUCOSE; Start 12/22/18 at 23:30 Glucose (Glutose) 22.5 gm Q15M PRN PO DECREASED GLUCOSE; Start 12/22/18 at 23:30 Dextrose (D50w Syringe) 25 ml Q15M PRN IV DECREASED GLUCOSE; Start 12/22/18 at 23:30 Dextrose (D50w Syringe) 50 ml Q15M PRN IV DECREASED GLUCOSE; Start 12/22/18 at 23:30 Glucagon (Glucagen) 1 mg Q15M PRN IM DECREASED GLUCOSE; Start 12/22/18 at 23:30 Glucose (Glutose) 15 gm Q15M PRN BUCCAL DECREASED GLUCOSE; Start 12/22/18 at 23:30 Diagnostic Test (Pha) (Accu-Chek) 1 ea AC MEALS AND BEDTIME XX Last administered on 01/02/19at 07:05; Admin Dose 1 EA; Start 12/22/18 at 23:21 Miscellaneous Information (Pending Santyl Order For Wound Care) This patient dietrich... PRN PRN XX WOUND CARE; Start 12/23/18 at 00:00 Docusate Sodium (Colace) 100 mg BID PO Last administered on 01/01/19 21:09; Admin Dose 100 MG; Start 12/23/18 at 09:00 Senna (Senokot) 1 tab HS PO Last administered on 01/01/19 21:09; Admin Dose 1 TAB; Start 12/23/18 at 21:00 Lactulose (Enulose) 20 gm DAILY PRN PO CONSTIPATION Last administered on 12/28/18 09:30; Admin Dose 20 GM; Start 12/23/18 at 00:00 Bisacodyl (Dulcolax Supp) 10 mg DAILY PRN [place] CONSTIPATION; Start 12/23/18 at 00:00 Acetaminophen (Tylenol Tab) 650 mg Q4H PRN PO PAIN Last administered on 12/31/18 19:36; Admin Dose 650 MG; Start 12/23/18 at 00:00 Linagliptin (Tradjenta) 5 mg DAILY PO Last administered on 01/02/19 08:49; Admin Dose 5 MG; Start 12/23/18 at 09:30 Insulin Aspart (Novolog Insulin Pen) 10 unit WITH MEALS SC Last administered on 01/02/19 12:20; Admin Dose 10 UNIT; Start 12/27/18 at 12:00 Labetalol HCl (Normodyne) 400 mg Q8 PO Last administered on 01/02/19 06:06; Admin Dose 400 MG; Start 12/27/18 at 14:00 Lisinopril (Zestril) 20 mg DAILY PO Last administered on 12/31/18 09:47; Admin Dose 20 MG; Start 12/31/18 at 09:00; Status Hold Hydralazine HCl (Apresoline) 10 mg BID PO Last administered on 01/02/19at 10:14; Admin Dose 10 MG; Start 01/01/19 at 09:00 Insulin Glargine (Lantus) 22 units DAILY@0800 SC ; Start 01/03/19 at 08:00 Assessment/Plan Additional Assessment/Plan Rehab- Right [id number] amputation. Steady progress, continue program Acute and neuropathic pain- under adequate control Osteomyelitis. Hypertension. Uncontrolled diabetes mellitus type 2. Peripheral vascular disease. Anemia. Acute kidney injury. Hypocalcemia. Hypertension. MARYANN JAVIER MD Jan 02, 2019 12:56
--- NOTE | 2019-01-02 14:13 | CONS ---
Assessment/Plan Assessment/Plan Hospital Course (Demo Recall) No acute events PHYSICAL EXAMINATION: GENERAL: This is obese well-developed elderly woman who is alert, . HEENT: Head is atraumatic, normocephalic. Sclerae are anicteric. Buccal mucosa is pink. NECK: Supple. CHEST: Rise symmetrical. Breath sounds clear. HEART: S1, S2. ABDOMEN: Obese, soft. Bowel tones are present. EXTREMITIES: Without cyanosis. Right lower extremity stump wrapped, immobilizer present Assessment: 1. Funguria, consistent with colonization 2. History of right lower extremity osteomyelitis status post below-knee amputation 3. Diabetes with diabetic neuropathy 4. Hypertension Plan: Remains stable, continue PT Consultation Date/Type/Reason Admit Date/Time Dec 22, 2018 at 20:54 Initial Consult Date Type of Consult id Date/Time of Note DATE: 01/02/19 TIME: 14:13 Exam/Review of Systems Exam Vitals Vital Signs Date Temp Pulse Resp B/P (MAP) Pulse Ox O2 O2 Flow FiO2 Time Delivery Rate 01/02/19 98.0 80 19 131/75 Room Air 08:00 (93) 01/02/19 94 02:02 Intake and Output 01/01/19 01/01/19 01/02/19 1414:59 22:59 06:59 IntakeIntake Total 250 ml 1200 ml 850 ml OutputOutput Total 600 ml BalanceBalance 250 ml 600 ml 850 ml Results Result Diagram: 01/01/19 0626 01/02/19 1033 Results 24hrs Laboratory Tests Test 01/01/19 17:30 01/01/19 21:06 01/02/19 07:50 01/02/19 10:33 Bedside Glucose 149 134 222 H Sodium Level 143 Potassium Level 5.6 H Chloride Level 108 Carbon Dioxide Level 29 Anion Gap 6 Blood Urea Nitrogen 36 H Creatinine 1.80 H Est Glomerular 29 L Filtrat Rate mL/min Glucose Level 193 Calcium Level 9.5 Test 01/02/19 12:08 Bedside Glucose 196 Medications Medication Current Medications Atorvastatin Calcium (Lipitor) 40 mg HS PO Last administered on 01/01/19at 21:08; Admin Dose 40 MG; Start 12/23/18 at 21:00 Gabapentin (Neurontin) 300 mg TID PO Last administered on 01/02/19at 10:15; Admin Dose 300 MG; Start 12/23/18 at 09:00 Heparin Sodium (Porcine) (Heparin (5000 Units/1ml)) 5,000 unit Q8 SC Last administered on 01/02/19 06:05; Admin Dose 5,000 UNIT; Start 12/22/18 at 22:00 Oxycodone HCl (Roxicodone) 5 mg Q4H PRN PO MODERATE PAIN LEVEL 4-6 Last administered on 12/28/18 21:20; Admin Dose 5 MG; Start 12/22/18 at 22:00 Oxycodone HCl (Roxicodone) 10 mg Q4H PRN PO SEVERE PAIN LEVEL 7-10; Start 12/22/18 at 22:00 Hydromorphone HCl (Dilaudid) 0.2 mg Q4H PRN IV BREAKTHROUGH PAIN Last administered on 01/01/19 19:42; Admin Dose 0.2 MG; Start 12/22/18 at 22:00 Ondansetron HCl (Zofran Inj) 4 mg Q4H PRN IV NAUSEA AND/OR VOMITING; Start 12/22/18 at 22:00 Lactobacillus Acidophilus/ Rhamnosus (Culturelle) 1 cap TID PO Last administered on 01/02/19 10:21; Admin Dose 1 CAP; Start 12/23/18 at 09:00 Diphenhydramine HCl (Benadryl) 25 mg Q6H PRN PO ITCHING Last administered on 12/30/18 21:33; Admin Dose 25 MG; Start 12/22/18 at 22:00 Al Hydrox/Mg Hydrox/Simethicone (Mag-Al Plus) 30 ml Q4H PRN PO GASTROINTESTINAL UPSET Last administered on 01/02/19 08:48; Admin Dose 30 ML; Start 12/22/18 at 22:00 Nystatin (Nystatin Powder) 1 applic BID TOP Last administered on 01/02/19 10:16; Admin Dose 1 APPLIC; Start 12/23/18 at 09:00 Diagnostic Test (Pha) (Accu-Chek) 1 ea 02 XX Last administered on 12/28/18 02:40; Admin Dose 1 EA; Start 12/23/18 at 02:00 Insulin Aspart (Novolog Insulin Pen) NOVOLOG *MODERATE* ALGORITHM WITH MEALS BEDTIME SC Last administered on 01/02/19 12:19; Admin Dose 4 UNIT; Start 12/23/18 at 07:35 Amlodipine Besylate (Norvasc) 10 mg DAILY PO Last administered on 01/02/19 10:16; Admin Dose 10 MG; Start 12/23/18 at 09:00 Ascorbic Acid (Vitamin C) 500 mg DAILY PO Last administered on 01/02/19 10:16; Admin Dose 500 MG; Start 12/23/18 at 09:00 Aspirin (Aspirin) 81 mg DAILY PO Last administered on 01/02/19 10:16; Admin Dose 81 MG; Start 12/23/18 at 09:00 Ergocalciferol (Drisdol) 50,000 unit Th@09 PO Last administered on 01/02/19 10:21; Admin Dose 50,000 UNIT; Start 12/26/18 at 09:00 Famotidine (Pepcid) 20 mg DAILY PO Last administered on 01/02/19 08:49; Admin Dose 20 MG; Start 12/23/18 at 09:00 Ferrous Sulfate (Ferrous Sulfate (Ec)) 325 mg DAILY PO Last administered on 01/02/19 10:15; Admin Dose 325 MG; Start 12/23/18 at 09:00 Folic Acid (Folic Acid) 1 mg DAILY PO Last administered on 01/02/19 10:16; Admin Dose 1 MG; Start 12/23/18 at 09:00 Polyethylene Glycol (Miralax) 17 gm DAILY PRN NGT CONSTIPATION; Start 12/22/18 at 22:30 Clonidine (Catapres) 0.1 mg Q6H PRN PO ELEVATED BLOOD PRESSURE Last administered on 12/26/18at 11:55; Admin Dose 0.1 MG; Start 12/22/18 at 22:30 Labetalol HCl (Normodyne) 100 mg BID PRN PO ELEVATED BLOOD PRESSURE Last administered on 12/28/18 09:33; Admin Dose 100 MG; Start 12/22/18 at 22:30 Miscellaneous Information 1 ea NOTE XX ; Start 12/22/18 at 23:30 Glucose (Glutose) 15 gm Q15M PRN PO DECREASED GLUCOSE; Start 12/22/18 at 23:30 Glucose (Glutose) 22.5 gm Q15M PRN PO DECREASED GLUCOSE; Start 12/22/18 at 23:30 Dextrose (D50w Syringe) 25 ml Q15M PRN IV DECREASED GLUCOSE; Start 12/22/18 at 23:30 Dextrose (D50w Syringe) 50 ml Q15M PRN IV DECREASED GLUCOSE; Start 12/22/18 at 23:30 Glucagon (Glucagen) 1 mg Q15M PRN IM DECREASED GLUCOSE; Start 12/22/18 at 23:30 Glucose (Glutose) 15 gm Q15M PRN BUCCAL DECREASED GLUCOSE; Start 12/22/18 at 23:30 Diagnostic Test (Pha) (Accu-Chek) 1 ea AC MEALS AND BEDTIME XX Last administe red on 01/02/19at 07:05; Admin Dose 1 EA; Start 12/22/18 at 23:21 Miscellaneous Information (Pending [facility] Order For Wound Care) This patient dietrich... PRN PRN XX WOUND CARE; Start 12/23/18 at 00:00 Docusate Sodium (Colace) 100 mg BID PO Last administered on 01/01/19at 21:09; Admin Dose 100 MG; Start 12/23/18 at 09:00 Senna (Senokot) 1 tab HS PO Last administered on 01/01/19at 21:09; Admin Dose 1 TAB; Start 12/23/18 at 21:00 Lactulose (Enulose) 20 gm DAILY PRN PO CONSTIPATION Last administered on 12/28/18 09:30; Admin Dose 20 GM; Start 12/23/18 at 00:00 Bisacodyl (Dulcolax Supp) 10 mg DAILY PRN [place] CONSTIPATION; Start 12/23/18 at 00:00 Acetaminophen (Tylenol Tab) 650 mg Q4H PRN PO PAIN Last administered on 12/31/18at 19:36; Admin Dose 650 MG; Start 12/23/18 at 00:00 Linagliptin (Tradjenta) 5 mg DAILY PO Last administered on 01/02/19 08:49; Admin Dose 5 MG; Start 12/23/18 at 09:30 Insulin Aspart (Novolog Insulin Pen) 10 unit WITH MEALS SC Last administered on 01/02/19at 12:20; Admin Dose 10 UNIT; Start 12/27/18 at 12:00 Labetalol HCl (Normodyne) 400 mg Q8 PO Last administered on 01/02/19 06:06; Admin Dose 400 MG; Start 12/27/18 at 14:00 Lisinopril (Zestril) 20 mg DAILY PO Last administered on 12/31/18at 09:47; Admin Dose 20 MG; Start 12/31/18 at 09:00; Status Hold Hydralazine HCl (Apresoline) 10 mg BID PO Last administered on 01/02/19at 10:14; Admin Dose 10 MG; Start 01/01/19 at 09:00 Insulin Glargine (Lantus) 22 units DAILY@0800 SC ; Start 01/03/19 at 08:00 JYOTSNA ANNA NP Jan 02, 2019 14:13
[2019-01-02 14:20] VITALS: BP 107/57; PULSE 65; RESP 18
[2019-01-02 20:17] VITALS: BP 140/62; PULSE 72; RESP 18
[2019-01-02] MEDS: SENNA TAB PO SCH (20:52)
[2019-01-02] MEDS: ATORVASTATIN 40 MG TAB PO SCH (20:52)
[2019-01-03 02:00] VITALS: BP 122/67; PULSE 82; RESP 18
[2019-01-03] MEDS: ACCU-CHEK XX SCH ×5 (02:00→20:56)
[2019-01-03] MEDS: HEPARIN 5,000 UNIT/1 ML VIAL SC SCH ×3 (06:15→21:11)
[2019-01-03] MEDS: LABETALOL 200 MG TAB PO SCH ×3 (06:15→20:59)
[2019-01-03 07:30] VITALS: BP 164/74; PULSE 84; RESP 18
[2019-01-03] MEDS: INSULIN ASPART [NOVOLOG] 3 ML PEN SC SCH ×7 (07:55→20:56)
[2019-01-03] MEDS: INSULIN GLARGINE [LANTus] (100 UNITS/ML) SYG SC SCH (07:57)
[2019-01-03] MEDS: DOCUSATE SODIUM 100 MG CAP PO SCH ×2 (09:00→21:00)
[2019-01-03] MEDS: AMLODIPINE 10 MG TAB PO SCH (09:26)
[2019-01-03] MEDS: FOLIC ACID 1 MG TAB PO SCH (09:26)
[2019-01-03] MEDS: LINAGLIPTIN 5 MG TABLET PO SCH (09:27)
[2019-01-03] MEDS: ASCORBIC ACID 500 MG TAB PO SCH (09:27)
[2019-01-03] MEDS: LACTOBACILLUS RHAMNOSUS CAP PO SCH ×3 (09:27→20:59)
[2019-01-03] MEDS: FERROUS SULFATE (EC) 325 MG TAB PO SCH (09:27)
[2019-01-03] MEDS: GABAPENTIN 300 MG CAP PO SCH ×3 (09:27→20:59)
[2019-01-03] MEDS: FAMOTIDINE 20 MG TAB PO SCH (09:27)
[2019-01-03] MEDS: NYSTATIN 30 GM POWDER BTL TOP SCH ×2 (09:28→21:00)
[2019-01-03] MEDS: ASPIRIN 81 MG TAB PO SCH (09:28)
--- NOTE | 2019-01-03 09:33 | PN ---
DATE: 01/03/2019 SUBJECTIVE: The patient is stable, no events overnight. OBJECTIVE: VITAL SIGNS: Blood pressure is 122/67, respirations 18, pulse 82, temperature 97.8. HEENT: Head is normocephalic. NECK: Supple. HEART: Regular rate. LUNGS: Show diminished breath sounds at the base. ABDOMEN: Soft, nontender to palpation without rebound or guarding. EXTREMITIES: Negative for clubbing, cyanosis, no edema. DERMATOLOGIC: No rashes. MUSCULOSKELETAL: No joint effusion. NEUROLOGIC: No change in exam. MEDICATIONS: Reviewed. LABORATORY DATA: Laboratory data from 01/02/2019 was reviewed. ASSESSMENT AND PLAN: 1. Right transtibial amputation. The patient is currently stable. Continue wound care, dressing ch anges. 2. Diarrhea. The patient is being ruled out for Clostridium difficile. Continue to monitor. 3. Right foot osteomyelitis. The patient is completing antibiotic course. 4. Nonoliguric acute kidney injury on top of chronic kidney disease, stage III. Etiology is felt to be secondary to hemodynamics, PALOMO inhibitor effect. PALOMO inhibitor has been on hold. We will follow up renal panel. 5. Mild hypokalemia. Continue to monitor. 6. Hypertension. Continue current blood pressure regimen. 7. Diabetes. Glucose levels have improved. Continue current insulin regimen. 8. Anemia. Monitor hemoglobin and hematocrit levels. 9. Mineral bone disorder. Continue to monitor calcium and phosphorus levels. 10. Neuropathy. Continue Neurontin. 11. Chronic pain syndrome. Continue current pain regimen. 12. Anxiety disorder. 13. Gastrointestinal and deep venous thrombosis prophylaxis. Dictated By: ISELA BARAJAS DO NR/NTS Conf#: [id number] DID#: [id number] CC: DREW CHAMPAGNE DO; NATANAEL LOVE NP; MARYANN JAVIER MD;*EndCC*
--- NOTE | 2019-01-03 12:06 | PN ---
Date/Time of Note Date/Time of Note DATE: 01/03/19 TIME: 12:05 Subjective patient participating with activities Objective Vital Signs Date Temp Pulse Resp B/P (MAP) Pulse Ox O2 O2 Flow FiO2 Time Delivery Rate 01/03/19 98.7 84 18 164/74 97 Room Air 07:30 (104) Intake and Output 01/02/19 01/02/19 01/03/19 1515:00 23:00 07:00 IntakeIntake Total 2200 ml 1400 ml OutputOutput Total 1200 ml BalanceBalance 1000 ml 1400 ml Exam sba bed mobility mod transfer sba wheelchair mobility Results/Medications Result Diagram: 01/01/19 0626 01/03/19 0759 Results 24 hrs Laboratory Tests Test 01/02/19 12:08 01/02/19 17:09 01/02/19 20:51 01/03/19 07:41 Bedside Glucose 196 80 130 167 Test 01/03/19 07:59 Sodium Level 143 Potassium Level 5.1 Chloride Level 106 Carbon Dioxide Level 27 Anion Gap 10 Blood Urea Nitrogen 36 H Creatinine 1.85 H Est Glomerular 28 L Filtrat Rate mL/min Glucose Level 160 Calcium Level 9.3 Phosphorus Level 6.0 H Magnesium Level 2.2 Medications Current Medications Atorvastatin Calcium (Lipitor) 40 mg HS PO Last administered on 01/02/19at 20:52; Admin Dose 40 MG; Start 12/23/18 at 21:00 Gabapentin (Neurontin) 300 mg TID PO Last administered on 01/03/19at 09:27; Admin Dose 300 MG; Start 12/23/18 at 09:00 Heparin Sodium (Porcine) (Heparin (5000 Units/1ml)) 5,000 unit Q8 SC Last administered on 01/03/19at 06:15; Admin Dose 5,000 UNIT; Start 12/22/18 at 22:00 Oxycodone HCl (Roxicodone) 5 mg Q4H PRN PO MODERATE PAIN LEVEL 4-6 Last administered on 12/28/18at 21:20; Admin Dose 5 MG; Start 12/22/18 at 22:00 Oxycodone HCl (Roxicodone) 10 mg Q4H PRN PO SEVERE PAIN LEVEL 7-10; Start 12/22/18 at 22:00 Hydromorphone HCl (Dilaudid) 0.2 mg Q4H PRN IV BREAKTHROUGH PAIN Last administered on 01/01/19 19:42; Admin Dose 0.2 MG; Start 12/22/18 at 22:00 Ondansetron HCl (Zofran Inj) 4 mg Q4H PRN IV NAUSEA AND/OR VOMITING; Start 12/22/18 at 22:00 Lactobacillus Acidophilus/ Rhamnosus (Culturelle) 1 cap TID PO Last administered on 01/03/19 09:27; Admin Dose 1 CAP; Start 12/23/18 at 09:00 Diphenhydramine HCl (Benadryl) 25 mg Q6H PRN PO ITCHING Last administered on 12/30/18 21:33; Admin Dose 25 MG; Start 12/22/18 at 22:00 Al Hydrox/Mg Hydrox/Simethicone (Mag-Al Plus) 30 ml Q4H PRN PO GASTROINTESTINAL UPSET Last administered on 01/02/19 08:48; Admin Dose 30 ML; Start 12/22/18 at 22:00 Nystatin (Nystatin Powder) 1 applic BID TOP Last administered on 01/03/19 09:28; Admin Dose 1 APPLIC; Start 12/23/18 at 09:00 Diagnostic Test (Pha) (Accu-Chek) 1 ea 02 XX Last administered on 12/28/18 02:40; Admin Dose 1 EA; Start 12/23/18 at 02:00 Insulin Aspart (Novolog Insulin Pen) NOVOLOG *MODERATE* ALGORITHM WITH MEALS BEDTIME SC Last administered on 01/03/19 07:55; Admin Dose 2 UNIT; Start 12/23/18 at 07:35 Amlodipine Besylate (Norvasc) 10 mg DAILY PO Last administered on 01/03/19 09:26; Admin Dose 10 MG; Start 12/23/18 at 09:00 Ascorbic Acid (Vitamin C) 500 mg DAILY PO Last administered on 01/03/19 09:27; Admin Dose 500 MG; Start 12/23/18 at 09:00 Aspirin (Aspirin) 81 mg DAILY PO Last administered on 01/03/19 09:28; Admin Dose 81 MG; Start 12/23/18 at 09:00 Ergocalciferol (Drisdol) 50,000 unit @09 PO Last administered on 01/02/19 10:21; Admin Dose 50,000 UNIT; Start 12/26/18 at 09:00 Famotidine (Pepcid) 20 mg DAILY PO Last administered on 01/03/19 09:27; Admin Dose 20 MG; Start 12/23/18 at 09:00 Ferrous Sulfate (Ferrous Sulfate (Ec)) 325 mg DAILY PO Last administered on 01/03/19 09:27; Admin Dose 325 MG; Start 12/23/18 at 09:00 Folic Acid (Folic Acid) 1 mg DAILY PO Last administered on 01/03/19 09:26; Admin Dose 1 MG; Start 12/23/18 at 09:00 Polyethylene Glycol (Miralax) 17 gm DAILY PRN NGT CONSTIPATION; Start 12/22/18 at 22:30 Clonidine (Catapres) 0.1 mg Q6H PRN PO ELEVATED BLOOD PRESSURE Last administered on 12/26/18at 11:55; Admin Dose 0.1 MG; Start 12/22/18 at 22:30 Labetalol HCl (Normodyne) 100 mg BID PRN PO ELEVATED BLOOD PRESSURE Last administered on 12/28/18at 09:33; Admin Dose 100 MG; Start 12/22/18 at 22:30 Miscellaneous Information 1 ea NOTE XX ; Start 12/22/18 at 23:30 Glucose (Glutose) 15 gm Q15M PRN PO DECREASED GLUCOSE; Start 12/22/18 at 23:30 Glucose (Glutose) 22.5 gm Q15M PRN PO DECREASED GLUCOSE; Start 12/22/18 at 23:30 Dextrose (D50w Syringe) 25 ml Q15M PRN IV DECREASED GLUCOSE; Start 12/22/18 at 23:30 Dextrose (D50w Syringe) 50 ml Q15M PRN IV DECREASED GLUCOSE; Start 12/22/18 at 23:30 Glucagon (Glucagen) 1 mg Q15M PRN IM DECREASED GLUCOSE; Start 12/22/18 at 23:30 Glucose (Glutose) 15 gm Q15M PRN BUCCAL DECREASED GLUCOSE; Start 12/22/18 at 2 3:30 Diagnostic Test (Pha) (Accu-Chek) 1 ea AC MEALS AND BEDTIME XX Last administered on 01/03/19at 08:00; Admin Dose 1 EA; Start 12/22/18 at 23:21 Miscellaneous Information (Pending [facility] Order For Wound Care) This patient dietrich... PRN PRN XX WOUND CARE; Start 12/23/18 at 00:00 Docusate Sodium (Colace) 100 mg BID PO Last administered on 01/01/19 21:09; Admin Dose 100 MG; Start 12/23/18 at 09:00 Senna (Senokot) 1 tab HS PO Last administered on 01/01/19 21:09; Admin Dose 1 TAB; Start 12/23/18 at 21:00 Lactulose (Enulose) 20 gm DAILY PRN PO CONSTIPATION Last administered on 12/28/18 09:30; Admin Dose 20 GM; Start 12/23/18 at 00:00 Bisacodyl (Dulcolax Supp) 10 mg DAILY PRN [place] CONSTIPATION; Start 12/23/18 at 00:00 Acetaminophen (Tylenol Tab) 650 mg Q4H PRN PO PAIN Last administered on 12/31/18 19:36; Admin Dose 650 MG; Start 12/23/18 at 00:00 Linagliptin (Tradjenta) 5 mg DAILY PO Last administered on 01/03/19 09:27; Admin Dose 5 MG; Start 12/23/18 at 09:30 Insulin Aspart (Novolog Insulin Pen) 10 unit WITH MEALS SC Last administered on 01/03/19 07:56; Admin Dose 10 UNIT; Start 12/27/18 at 12:00 Labetalol HCl (Normodyne) 400 mg Q8 PO Last administered on 01/03/19 06:15; A dmin Dose 400 MG; Start 12/27/18 at 14:00 Hydralazine HCl (Apresoline) 10 mg BID PO Last administered on 01/03/19 09:28; Admin Dose 10 MG; Start 01/01/19 at 09:00 Insulin Glargine (Lantus) 22 units DAILY@0800 SC Last administered on 01/03/19 07:57; Admin Dose 22 UNITS; Start 01/03/19 at 08:00 Assessment/Plan Additional Assessment/Plan Rehab- Right [id number] amputation. continue treatment plan Acute and neuropathic pain- under adequate control Osteomyelitis. Hypertension. Uncontrolled diabetes mellitus type 2. Peripheral vascular disease. Anemia. Acute kidney injury. Hypocalcemia. Hypertension. MARYANN JAVIER MD Jan 03, 2019 12:06
[2019-01-03 14:00] VITALS: BP 103/61; PULSE 73; RESP 18
[2019-01-03 16:30] VITALS: BP 132/63; PULSE 67; RESP 18
[2019-01-03 19:38] VITALS: BP 142/64; PULSE 90; RESP 16
[2019-01-03] MEDS: ATORVASTATIN 40 MG TAB PO SCH (20:59)
[2019-01-03] MEDS: SENNA TAB PO SCH (21:00)
[2019-01-04 02:05] VITALS: BP 125/68; PULSE 85; RESP 18
[2019-01-04] MEDS: ACCU-CHEK XX SCH ×5 (02:30→21:38)
[2019-01-04] MEDS: LABETALOL 200 MG TAB PO SCH ×2 (06:34→21:11)
[2019-01-04] MEDS: HEPARIN 5,000 UNIT/1 ML VIAL SC SCH ×3 (06:35→22:11)
[2019-01-04 07:30] VITALS: BP 169/81; PULSE 84; RESP 18
[2019-01-04] MEDS: INSULIN GLARGINE [LANTus] (100 UNITS/ML) SYG SC SCH (07:57)
[2019-01-04] MEDS: INSULIN ASPART [NOVOLOG] 3 ML PEN SC SCH ×7 (07:59→21:00)
[2019-01-04] MEDS: AMLODIPINE 10 MG TAB PO SCH (09:00)
[2019-01-04] MEDS: DOCUSATE SODIUM 100 MG CAP PO SCH ×2 (09:00→21:00)
--- NOTE | 2019-01-04 09:46 | PN ---
DATE: 01/04/2019 SUBJECTIVE: The patient is stable. The patient is complaining of having lost some money overnight. No other events noted. The patient's diarrhea has improved. OBJECTIVE: VITAL SIGNS: Blood pressure is 125/68, respirations 18, pulse 85, temperature is 98.0. HEENT: Head is normocephalic. NECK: Supple. HEART: Regular rate. LUNGS: Show diminished breath sounds at the base. ABDOMEN: Soft, nontender to palpation without rebound or guarding. EXTREMITIES: Negative for clubbing, cyanosis, no edema, positive right below knee amputation. DERMATOLOGIC: No rashes. MUSCULOSKELETAL: No joint effusion. NEUROLOGIC: No change in exam. FUNCTIONAL EXAM: Functional exam was assessed. MEDICATIONS: Reviewed. LABORATORY DATA: Shows sodium 141, potassium 5.3, chloride 109, BUN 43, creatinine 1.91, glucose is 316, phosphorus 5.8. White count 6.7, hemoglobin 10.3, platelet count is 281. ASSESSMENT AND PLAN: 1. Nonoliguric acute injury on top of chronic kidney disease. Etiology of acute kidney injury is fe lt to be secondary to hemodynamics. The patient's renal function has declined in the last 48 hours. This may be due to volume loss due to recent diarrhea. Plan is to give the patient a gentle fluid c hallenge. We will monitor renal function closely. 2. Right transtibial amputation. Continue to monitor. Continue wound care. 3. Diarrhea. The patient is being ruled out for Clostridium difficile. 4. Right foot osteomyelitis, status post antibiotic therapy. 5. Hyperkalemia, mild. Continue to monitor. The patient will be placed on a low potassium diet. 6. Hypertension. Blood pressures are controlled. We will deescalate blood pressure medications as the patient may be volume depleted. 7. Diabetes. Continue current insulin regimen. 8. Anemia. Monitor hemoglobin and hematocrit levels. 9. Mineral bone disorder, monitor calcium and phosphorus levels. 10. Neuropathy. Continue Neurontin. 11. Chronic pain syndrome. Continue current pain regimen. 12. Anxiety disorder. 13. Gastrointestinal and deep vein thrombosis prophylaxis. Dictated By: ISELA BARAJAS DO NR/NTS Conf#: [id number] DID#: [id number] CC: MARYANN JAVIER MD; NATANAEL LOVE NP; DREW CHAMPAGNE DO;*EndCC*
[2019-01-04] MEDS: LINAGLIPTIN 5 MG TABLET PO SCH (10:01)
[2019-01-04] MEDS: ASPIRIN 81 MG TAB PO SCH (10:01)
[2019-01-04] MEDS: ASCORBIC ACID 500 MG TAB PO SCH (10:01)
[2019-01-04] MEDS: FAMOTIDINE 20 MG TAB PO SCH (10:02)
[2019-01-04] MEDS: LACTOBACILLUS RHAMNOSUS CAP PO SCH ×3 (10:02→21:12)
[2019-01-04] MEDS: FERROUS SULFATE (EC) 325 MG TAB PO SCH (10:02)
[2019-01-04] MEDS: GABAPENTIN 300 MG CAP PO SCH ×3 (10:02→21:11)
[2019-01-04] MEDS: FOLIC ACID 1 MG TAB PO SCH (10:03)
[2019-01-04] MEDS: NYSTATIN 30 GM POWDER BTL TOP SCH ×2 (10:03→21:12)
[2019-01-04 10:09] VITALS: BP 122/51; PULSE 79; RESP 18
[2019-01-04 14:00] VITALS: BP 118/64; PULSE 80; RESP 18
[2019-01-04] MEDS: SOD CHLORIDE 0.9% 1,000 ML IV SCH (14:01)
[2019-01-04 19:49] VITALS: BP 131/85; PULSE 86; RESP 20
[2019-01-04] MEDS: SENNA TAB PO SCH (21:00)
[2019-01-04] MEDS: ATORVASTATIN 40 MG TAB PO SCH (21:11)
[2019-01-05] MEDS: ACCU-CHEK XX SCH ×5 (02:00→21:00)
[2019-01-05] MEDS: SOD CHLORIDE 0.9% 1,000 ML IV SCH (02:45)
[2019-01-05 02:47] VITALS: BP 159/69; PULSE 84; RESP 20
[2019-01-05] MEDS: HEPARIN 5,000 UNIT/1 ML VIAL SC SCH ×3 (06:51→21:41)
[2019-01-05 07:00] VITALS: BP 179/79; PULSE 83; RESP 18
[2019-01-05] MEDS: INSULIN ASPART [NOVOLOG] 3 ML PEN SC SCH ×7 (07:51→21:00)
[2019-01-05] MEDS: HYDROmorphONE 0.5 MG/0.5 ML SYG IV PRN ×4 (07:54→19:29)
[2019-01-05] MEDS: INSULIN GLARGINE [LANTus] (100 UNITS/ML) SYG SC SCH (08:12)
[2019-01-05 08:30] VITALS: BP 145/75
[2019-01-05] MEDS: GABAPENTIN 300 MG CAP PO SCH ×3 (08:56→21:35)
[2019-01-05] MEDS: LACTOBACILLUS RHAMNOSUS CAP PO SCH ×3 (08:56→21:34)
[2019-01-05] MEDS: LABETALOL 200 MG TAB PO SCH ×2 (08:57→21:35)
[2019-01-05] MEDS: DOCUSATE SODIUM 100 MG CAP PO SCH ×2 (08:57→21:35)
[2019-01-05] MEDS: LINAGLIPTIN 5 MG TABLET PO SCH (08:57)
[2019-01-05] MEDS: ASCORBIC ACID 500 MG TAB PO SCH (08:57)
[2019-01-05] MEDS: FOLIC ACID 1 MG TAB PO SCH (08:57)
[2019-01-05] MEDS: FERROUS SULFATE (EC) 325 MG TAB PO SCH (08:58)
[2019-01-05] MEDS: NYSTATIN 30 GM POWDER BTL TOP SCH ×2 (08:59→21:35)
[2019-01-05] MEDS: FAMOTIDINE 20 MG TAB PO SCH (08:59)
[2019-01-05] MEDS: ASPIRIN 81 MG TAB PO SCH (09:02)
--- NOTE | 2019-01-05 11:11 | PN ---
DATE: 01/05/2019 This is progress note and acute rehab cover. SUBJECTIVE: The patient was placed on IV fluids yesterday. No other acute events noted. No hemopty sis, hematemesis or hematochezia. FUNCTIONAL EXAMINATION: Functional exam was assessed and reviewed. OBJECTIVE: VITAL SIGNS: Blood pressure is 179/79, respirations 18, pulse 83, temperature 98.4. HEENT: Head is normocephalic. NECK: Supple. HEART: Regular rate. LUNGS: Show diminished breath sounds at the base. ABDOMEN: Soft, nontender to palpation. No rebound or guarding. EXTREMITIES: Negative for clubbing, cyanosis. No edema. DERMATOLOGIC: No rashes. MUSCULOSKELETAL: No joint effusions. NEUROLOGIC: No change in exam. MEDICATIONS: Reviewed. LABORATORY DATA: Shows sodium 143, potassium 5.4, chloride 114, BUN 41, creatinine 1.67. Phosphorus 5.7. White count 7.4, hemoglobin 9.9, platelet count is 280. ASSESSMENT AND PLAN: 1. Nonoliguric acute kidney injury on top of chronic kidney disease. Etiology is felt to be seconda ry to hemodynamics. Renal function has improved after adjusting blood pressure medications and givin g a course of intravenous fluids. Will continue to monitor renal function closely. 2. Right transtibial amputation. Continue to monitor. Continue wound care. 3. Diarrhea, resolving. 4. Right foot osteomyelitis, status post antibiotics. 5. Mild hyperkalemia. The patient was placed on low-potassium diet. Continue to monitor. 6. Hypertension. Blood pressure is now elevated. We will discontinue intravenous fluids. We will readjust blood pressure medications. 7. Diabetes. Continue current insulin regimen. 8. Anemia. Monitor hemoglobin and hematocrit levels. 9. Mineral bone disorder. Monitor calcium and phosphatase levels. 10. Neuropathy. Continue Neurontin. 11. Chronic pain syndrome. Continue current pain regimen. 12. Anxiety disorder. 13. Gastrointestinal and deep venous thrombosis prophylaxis. Dictated By: ISELA BERNAL/LEX Conf#: [id number] DID#: [id number] CC: MARYANN JAVIER MD;*EndCC*
[2019-01-05 14:00] VITALS: BP 174/76; PULSE 85; RESP 16
[2019-01-05 15:00] VITALS: BP 135/75; PULSE 88
[2019-01-05 20:00] VITALS: BP 184/85; PULSE 90; RESP 18
[2019-01-05] MEDS: ATORVASTATIN 40 MG TAB PO SCH (21:34)
[2019-01-05] MEDS: SENNA TAB PO SCH (21:35)
[2019-01-06 02:00] VITALS: BP 183/88; PULSE 89; RESP 18
[2019-01-06] MEDS: ACCU-CHEK XX SCH ×5 (02:00→21:00)
[2019-01-06] MEDS: HEPARIN 5,000 UNIT/1 ML VIAL SC SCH ×3 (06:44→22:06)
[2019-01-06 07:30] VITALS: BP 172/83; PULSE 91; RESP 20
[2019-01-06] MEDS: INSULIN ASPART [NOVOLOG] 3 ML PEN SC SCH ×7 (07:53→21:00)
[2019-01-06] MEDS: HYDROmorphONE 0.5 MG/0.5 ML SYG IV PRN ×4 (07:55→19:10)
[2019-01-06] MEDS: ASCORBIC ACID 500 MG TAB PO SCH (08:17)
[2019-01-06] MEDS: LACTOBACILLUS RHAMNOSUS CAP PO SCH ×3 (08:18→22:09)
[2019-01-06] MEDS: FOLIC ACID 1 MG TAB PO SCH (08:18)
[2019-01-06] MEDS: ASPIRIN 81 MG TAB PO SCH (08:18)
[2019-01-06] MEDS: FERROUS SULFATE (EC) 325 MG TAB PO SCH (08:18)
[2019-01-06] MEDS: LABETALOL 200 MG TAB PO SCH ×3 (08:18→22:09)
[2019-01-06] MEDS: AMLODIPINE 10 MG TAB PO SCH (08:18)
[2019-01-06] MEDS: DOCUSATE SODIUM 100 MG CAP PO SCH ×2 (08:18→21:00)
[2019-01-06] MEDS: FAMOTIDINE 20 MG TAB PO SCH (08:18)
[2019-01-06] MEDS: GABAPENTIN 300 MG CAP PO SCH ×3 (08:18→22:10)
[2019-01-06 08:40] VITALS: BP 145/65
[2019-01-06] MEDS: INSULIN GLARGINE [LANTus] (100 UNITS/ML) SYG SC SCH (09:37)
[2019-01-06] MEDS: LINAGLIPTIN 5 MG TABLET PO SCH (09:37)
--- NOTE | 2019-01-06 09:38 | PN ---
DATE: 01/06/2019 SUBJECTIVE: The patient is stable. The patient did have an episode of hitting herself on the head y esterday. No other events noted. No hemoptysis, hematemesis, hematochezia. OBJECTIVE: VITAL SIGNS: Blood pressure is 183/88, respiration 18, pulse 89, temperature 98.2. HEENT: Head is normocephalic. NECK: Supple. HEART: Regular rate. LUNGS: Show diminished breath sounds at the base. ABDOMEN: Soft, nontender to palpation without rebound or guarding. EXTREMITIES: Negative for clubbing, cyanosis. No edema. Positive BKA noted. DERMATOLOGIC: No rashes. MUSCULOSKELETAL: No joint effusion. NEUROLOGIC: No change in exam. MEDICATIONS: The patient's medications have been reviewed. LABORATORY DATA: Shows sodium 144, creatinine 4.0, BUN 30, creatinine 1.44. ASSESSMENT AND PLAN: 1. Nonoliguric acute kidney injury on top of CKD. Etiology is secondary to hemodynamics. Renal func tion has been improving. Continue current treatment plans, supportive care, renally dose all meds. 2. Right transtibial amputation. Continue to monitor. 3. Right foot osteomyelitis. The patient is status post antibiotics. 4. Mild hyperkalemia, resolved. 5. Diarrhea, resolved. 6. Hypertension. Blood pressures are again elevated. We will increase labetalol 400 mg p.o. every 8 hours, resume Hydralazine 10 mg b.i.d. Continue Norvasc. 7. Diabetes. Continue current insulin regimen. 8. Anemia. Monitor hemoglobin and hematocrit levels. 9. Mineral bone disorder. Monitor calcium and phosphorus. 10. Neuropathy. Continue Neurontin. 11. Chronic pain syndrome. Continue her pain regimen. 13. Anxiety disorder. 14. Gastrointestinal and deep venous thrombosis prophylaxis. Dictated By: ISELA BARAJAS DO NR/NTS Conf#: [id number] DID#: [id number] CC: DREW CAHMPAGNE DO; MARYANN JAVIER MD; NATANAEL LOVE DELIVERY PERSON;*EndCC*
[2019-01-06] MEDS: NYSTATIN 30 GM POWDER BTL TOP SCH ×2 (09:39→22:08)
--- NOTE | 2019-01-06 13:33 | PN ---
Date/Time of Note Date/Time of Note DATE: 01/06/19 TIME: 13:33 Objective Vital Signs Date Temp Pulse Resp B/P (MAP) Pulse Ox O2 O2 Flow FiO2 Time Delivery Rate 01/06/19 145/65 08:40 (91) 01/06/19 98.6 91 20 97 Room Air 07:30 Intake and Output 01/05/19 01/05/19 01/06/19 1414:59 22:59 06:59 IntakeIntake Total 300 ml 2000 ml OutputOutput Total 300 ml 250 ml BalanceBalance 300 ml 1700 ml -250 ml Exam INTERDISCIPLINARY TEAM CONFERENCE Physical Exam: Pulm- cta Abd-soft BOWEL- Cont BLADDER-Cont SKIN- residual limb improving OT- DRESSING-sba/min BATHING-sba/mod TOILETING-min/mod PT- BED MOBILITY-s TRANSFERS-min WHEELCHAIR- S A/P- Interdisciplinary team conference held today. Please see interdisciplinary sheet. Working toward d.c. on 01/07 with post discharge follow up of physical therapy, occupational therapy. Results/Medications Result Diagram: 01/05/19 0754 01/06/19 0705 Results 24 hrs Laboratory Tests Test 01/05/19 17:30 01/05/19 20:59 01/06/19 07:05 01/06/19 07:50 Bedside Glucose 275 H 151 168 Sodium Level 144 Potassium Level 5.0 Chloride Level 113 H Carbon Dioxide Level 22 Anion Gap 9 Blood Urea Nitrogen 30 #H Creatinine 1.44 H Est Glomerular 37 L Filtrat Rate mL/min Glucose Level 183 Calcium Level 9.3 Phosphorus Level 5.0 H Magnesium Level 2.0 Test 01/06/19 11:59 Bedside Glucose 174 Medications Current Medications Atorvastatin Calcium (Lipitor) 40 mg HS PO Last administered on 01/05/19at 21:34; Admin Dose 40 MG; Start 12/23/18 at 21:00 Gabapentin (Neurontin) 300 mg TID PO Last administered on 01/06/19at 08:18; Admin Dose 300 MG; Start 12/23/18 at 09:00 Heparin Sodium (Porcine) (Heparin (5000 Units/1ml)) 5,000 unit Q8 SC Last administered on 01/06/19at 06:44; Admin Dose 5,000 UNIT; Start 12/22/18 at 22:00 Oxycodone HCl (Roxicodone) 5 mg Q4H PRN PO MODERATE PAIN LEVEL 4-6 Last administered on 12/28/18 21:20; Admin Dose 5 MG; Start 12/22/18 at 22:00 Oxycodone HCl (Roxicodone) 10 mg Q4H PRN PO SEVERE PAIN LEVEL 7-10; Start 12/22/18 at 22:00 Hydromorphone HCl (Dilaudid) 0.2 mg Q4H PRN IV BREAKTHROUGH PAIN Last administered on 01/06/19 11:43; Admin Dose 0.2 MG; Start 12/22/18 at 22:00 Ondansetron HCl (Zofran Inj) 4 mg Q4H PRN IV NAUSEA AND/OR VOMITING; Start 12/22/18 at 22:00 Lactobacillus Acidophilus/ Rhamnosus (Culturelle) 1 cap TID PO Last administered on 01/06/19 08:18; Admin Dose 1 CAP; Start 12/23/18 at 09:00 Diphenhydramine HCl (Benadryl) 25 mg Q6H PRN PO ITCHING Last administered on 12/30/18 21:33; Admin Dose 25 MG; Start 12/22/18 at 22:00 Al Hydrox/Mg Hydrox/Simethicone (Mag-Al Plus) 30 ml Q4H PRN PO GASTROINTESTINAL UPSET Last administered on 01/02/19 08:48; Admin Dose 30 ML; Start 12/22/18 at 22:00 Nystatin (Nystatin Powder) 1 applic BID TOP Last administered on 01/06/19 09:39; Admin Dose 1 APPLIC; Start 12/23/18 at 09:00 Diagnostic Test (Pha) (Accu-Chek) 1 ea 02 XX Last administered on 12/28/18 02:40; Admin Dose 1 EA; Start 12/23/18 at 02:00 Insulin Aspart (Novolog Insulin Pen) NOVOLOG *MODERATE* ALGORITHM WITH MEALS BEDTIME SC Last administered on 01/06/19 12:01; Admin Dose 2 UNIT; Start 12/23/18 at 07:35 Amlodipine Besylate (Norvasc) 10 mg DAILY PO Last administered on 01/06/19 08:18; Admin Dose 10 MG; Start 12/23/18 at 09:00 Ascorbic Acid (Vitamin C) 500 mg DAILY PO Last administered on 01/06/19 08:17; Admin Dose 500 MG; Start 12/23/18 at 09:00 Aspirin (Aspirin) 81 mg DAILY PO Last administered on 01/06/19 08:18; Admin Dose 81 MG; Start 12/23/18 at 09:00 Ergocalciferol (Drisdol) 50,000 unit Th@09 PO Last administered on 01/02/19 10:21; Admin Dose 50,000 UNIT; Start 12/26/18 at 09:00 Famotidine (Pepcid) 20 mg DAILY PO Last administered on 01/06/19 08:18; Admin Dose 20 MG; Start 12/23/18 at 09:00 Ferrous Sulfate (Ferrous Sulfate (Ec)) 325 mg DAILY PO Last administered on 01/06/19 08:18; Admin Dose 325 MG; Start 12/23/18 at 09:00 Folic Acid (Folic Acid) 1 mg DAILY PO Last administered on 01/06/19 08:18; Admin Dose 1 MG; Start 12/23/18 at 09:00 Polyethylene Glycol (Miralax) 17 gm DAILY PRN NGT CONSTIPATION; Start 12/22/18 at 22:30 Clonidine (Catapres) 0.1 mg Q6H PRN PO ELEVATED BLOOD PRESSURE Last administered on 12/26/18 11:55; Admin Dose 0.1 MG; Start 12/22/18 at 22:30 Labetalol HCl (Normodyne) 100 mg BID PRN PO ELEVATED BLOOD PRESSURE Last administered on 12/28/18 09:33; Admin Dose 100 MG; Start 12/22/18 at 22:30 Miscellaneous Information 1 ea NOTE XX ; Start 12/22/18 at 23:30 Glucose (Glutose) 15 gm Q15M PRN PO DECREASED GLUCOSE Last administered on 01/03/19 16:39; Admin Dose 15 GM; Start 12/22/18 at 23:30 Glucose (Glutose) 22.5 gm Q15M PRN PO DECREASED GLUCOSE; Start 12/22/18 at 23:30 Dextrose (D50w Syringe) 25 ml Q15M PRN IV DECREASED GLUCOSE; Start 12/22/18 at 23:30 Dextrose (D50w Syringe) 50 ml Q15M PRN IV DECREASED GLUCOSE; Start 12/22/18 at 23:30 Glucagon (Glucagen) 1 mg Q15M PRN IM DECREASED GLUCOSE; Start 12/22/18 at 23:30 Glucose (Glutose) 15 gm Q15M PRN BUCCAL DECREASED GLUCOSE; Start 12/22/18 at 23:30 Diagnostic Test (Pha) (Accu-Chek) 1 ea AC MEALS AND BEDTIME XX Last administered on 01/06/19 11:59; Admin Dose 1 EA; Start 12/22/18 at 23:21 Miscellaneous Information (Pending [facility] Order For Wound Care) This patient dietrich... PRN PRN XX WOUND CARE; Start 12/23/18 at 00:00 Docusate Sodium (Colace) 100 mg BID PO Last administered on 01/06/19 08:18; Admin Dose 100 MG; Start 12/23/18 at 09:00 Senna (Senokot) 1 tab HS PO Last administered on 01/05/19 21:35; Admin Dose 1 TAB; Start 12/23/18 at 21:00 Lactulose (Enulose) 20 gm DAILY PRN PO CONSTIPATION Last administered on 12/28/18 09:30; Admin Dose 20 GM; Start 12/23/18 at 00:00 Bisacodyl (Dulcolax Supp) 10 mg DAILY PRN RI CONSTIPATION; Start 12/23/18 at 00:00 Acetaminophen (Tylenol Tab) 650 mg Q4H PRN PO PAIN Last administered on 12/31/18 19:36; Admin Dose 650 MG; Start 12/23/18 at 00:00 Linagliptin (Tradjenta) 5 mg DAILY PO Last administered on 01/06/19 09:37; Admin Dose 5 MG; Start 12/23/18 at 09:30 Insulin Aspart (Novolog Insulin Pen) 10 unit WITH MEALS SC Last administered on 01/06/19 12:02; Admin Dose 10 UNIT; Start 12/27/18 at 12:00 Hydralazine HCl (Apresoline) 10 mg BID PO Last administered on 01/03/19 20:59; Admin Dose 10 MG; Start 01/01/19 at 09:00 Insulin Glargine (Lantus) 22 units DAILY@0800 SC Last administered on 01/06/19 09:37; Admin Dose 22 UNITS; Start 01/03/19 at 08:00 Labetalol HCl (Normodyne) 400 mg Q8 PO ; Start 01/06/19 at 14:00 MARYANN JAVIER MD Jan 06, 2019 13:33
[2019-01-06 14:00] VITALS: BP 115/74; PULSE 78; RESP 18
[2019-01-06 20:00] VITALS: BP 162/77; PULSE 89; RESP 18
[2019-01-06] MEDS: SENNA TAB PO SCH (21:00)
[2019-01-06] MEDS: ATORVASTATIN 40 MG TAB PO SCH (22:08)
[2019-01-07 02:00] VITALS: BP 148/85; PULSE 82; RESP 18
[2019-01-07] MEDS: ACCU-CHEK XX SCH ×4 (02:00→17:38)
[2019-01-07] MEDS: HEPARIN 5,000 UNIT/1 ML VIAL SC SCH ×2 (06:00→08:36)
[2019-01-07] MEDS: LABETALOL 200 MG TAB PO SCH ×2 (06:00→14:00)
[2019-01-07 07:00] VITALS: BP 176/83; PULSE 81; RESP 18
[2019-01-07] MEDS: INSULIN ASPART [NOVOLOG] 3 ML PEN SC SCH ×6 (07:50→17:40)
[2019-01-07] MEDS: INSULIN GLARGINE [LANTus] (100 UNITS/ML) SYG SC SCH (07:51)
[2019-01-07] MEDS: GABAPENTIN 300 MG CAP PO SCH ×3 (08:30→20:21)
[2019-01-07] MEDS: LINAGLIPTIN 5 MG TABLET PO SCH (08:30)
[2019-01-07] MEDS: ASCORBIC ACID 500 MG TAB PO SCH (08:31)
[2019-01-07] MEDS: FOLIC ACID 1 MG TAB PO SCH (08:31)
[2019-01-07] MEDS: ASPIRIN 81 MG TAB PO SCH (08:31)
[2019-01-07] MEDS: AMLODIPINE 10 MG TAB PO SCH (08:31)
[2019-01-07] MEDS: LACTOBACILLUS RHAMNOSUS CAP PO SCH ×3 (08:32→20:21)
[2019-01-07] MEDS: FERROUS SULFATE (EC) 325 MG TAB PO SCH (08:32)
[2019-01-07] MEDS: FAMOTIDINE 20 MG TAB PO SCH (08:32)
[2019-01-07] MEDS: DOCUSATE SODIUM 100 MG CAP PO SCH (08:39)
[2019-01-07] MEDS: NYSTATIN 30 GM POWDER BTL TOP SCH (09:00)
--- NOTE | 2019-01-07 10:31 | PN ---
DATE: 01/07/2019 SUBJECTIVE: The patient is stable. No events overnight. OBJECTIVE: VITAL SIGNS: Blood pressure is 148/85, respirations 18, pulse 82, temperature 98.0. HEENT: Head is normocephalic. NECK: Supple. HEART: Regular rate. LUNGS: Show diminished breath sounds at the base. ABDOMEN: Soft, nontender to palpation without rebound or guarding. EXTREMITIES: Negative for clubbing, cyanosis. Positive left below knee amputation. DERMATOLOGIC: No rashes. MUSCULOSKELETAL: No joint effusion. NEUROLOGIC: No change in exam. MEDICATIONS: Reviewed. LABORATORY DATA: Reviewed. ASSESSMENT AND PLAN: 1. Nonoliguric acute kidney injury on top of chronic kidney disease. Etiology is secondary to hemod ynamics. Renal function is improving, nearing baseline. Continue current treatment plan, supportive care, renally dose all medicines. 2. Right transtibial amputation. Continue to monitor. 3. Right foot osteomyelitis. The patient is status post antibiotics. 4. Mild hyperkalemia, resolved. 5. Diarrhea, resolving. 6. Hypertension. Blood pressure improved. Continue current blood pressure regimen. 7. Diabetes. Continue current insulin regimen. 8. Anemia. Continue to monitor hemoglobin and hematocrit levels. 9. Mineral bone disorder. Monitor calcium and phosphorus levels. 10. Neuropathy. Continue Neurontin. 11. Chronic pain syndrome. Continue current pain regimen. 12. Anxiety disorder. 13. Gastrointestinal and deep vein thrombosis prophylaxis. Dictated By: ISELA BARAJAS DO NR/NTS Conf#: [id number] DID#: [id number] CC: DREW CHAMPAGNE DO; MARYANN JAVIER MD; NATANAEL LOVE NP;*EndCC*
--- NOTE | 2019-01-07 13:03 | DS ---
Date/Time of Note Date/Time of Note DATE: 01/07/19 TIME: 13:00 Discharge Summary Admission/Discharge Info Admit Date/Time Dec 22, 2018 at 20:54 Discharge Date/Time Discharge Diagnosis 1. Right [id number] amputation. 2. Acute and neuropathic pain. 3. Hypertension. 4. Uncontrolled diabetes mellitus type 2. 5. Peripheral vascular disease. 6. Anemia. 7. Acute kidney injury. 8. Hypocalcemia. 9. Hypertension. 10. Improvements in self-care and mobility. Patient Condition: Good Hospital Course The patient was admitted for comprehensive interdisciplinary rehabilitation and made steady functional gains from a Max level to a SBA level for seated self care tasks, min assist for transfers and supervised wheelchair level mobility. Patient is being discharged home with the recommendation of home health PT, OT and RN follow up. The DC meds are per the medication reconciliation sheet. The discharge equipment recommendations include: FWW, BSC, shower chair, and lightweight wheelchair with elevating leg rest and anti-tip feature. The patient will follow up with PMD and surgeon upon DC. Family received caregiver training. Home Meds Active Scripts Sucralfate (Carafate) 1 Gm Tablet, 1 GM PO Q6, #120 TAB Prov:ANETTE NAVARRETE NP 07/21/18 Pantoprazole* (Protonix*) 40 Mg Tablet.dr, 40 MG PO BID, #60 TAB Prov:ANETTE NAVARRETE NP 07/21/18 Cephalexin* (Cephalexin*) 500 Mg Capsule, 500 MG PO Q12H for 8 Days, #16 CAP Already received 2 days of therapy. Prov:ANETTE NAVARRETE NP 07/21/18 Insulin Lispro (Humalog Kwikpen U-100) 100 Unit/1 Ml Insuln.pen, 10 UNIT SQ TIDM A, #1 EA The patient already has supplies at home. Prov:ANETTE NAVARRETE NP 07/21/18 Insulin Glargine,Hum.rec.anlog (Basaglar Kwikpen U-100) 100 Unit/1 Ml Insuln.pen, 40 UNIT SC Q hs, #1 EA The patient already has a supply at home. Prov:ANETTE NAVARRETE NP 07/21/18 Reported Medications Cyanocobalamin* (Vitamin B-12*) 1,000 Mcg Tablet.sa, 1000 MCG PO DAILY, TAB 07/19/18 Ferrous Sulfate* (Ferrous Sulfate*) 325 Mg Tabec, 325 MG PO BID, TAB 07/19/18 Folic Acid* (Folic Acid*) 1 Mg Tablet, 1 MG PO DAILY, TAB 07/19/18 Gabapentin* (Gabapentin*) 300 Mg Capsule, 300 MG PO TID, #90 CAP 07/19/18 Lisinopril* (Lisinopril*) 10 Mg Tablet, 10 MG PO DAILY, #30 TAB 07/19/18 Pravastatin Sodium (Pravastatin Sodium) 20 Mg Tablet, 20 MG PO DAILY, TAB 07/19/18 Primary Care Provider Not On Staff Doctor Pending Labs Laboratory Tests Test 01/06/19 17:23 01/06/19 22:07 01/07/19 07:47 01/07/19 12:20 Bedside 107 129 149 83 Glucose mg/dL (70-220) mg/dL (70-220) mg/dL (70-220) mg/dL (70-220) MARYANN JAVIER MD Jan 07, 2019 13:03
[2019-01-07] MEDS: ATORVASTATIN 40 MG TAB PO SCH (20:21)
== END 2019-01-07 20:25 | disposition home health service (06) | DRG 560 ==
LOC: VRC 20:54
PROVIDERS: ADMIT Physical Medicine & Rehabilitation; ATTEND Internal Medicine Nephrology
PROC: F07Z5ZZ Bed Mobility Treatment (ICD-10-PCS; principal; 2018-12-23)
PROC: F07Z8ZZ Transfer Training Treatment (ICD-10-PCS; 2018-12-23)
PROC: F07Z4ZZ Wheelchair Mobility Treatment (ICD-10-PCS; 2018-12-23)
PROC: F08Z2ZZ Grooming/Personal Hygiene Treatment (ICD-10-PCS; 2018-12-23)
PROC: F08Z1ZZ Dressing Techniques Treatment (ICD-10-PCS; 2018-12-23)
PROC: F08Z0ZZ Bathing/Showering Techniques Treatment (ICD-10-PCS; 2018-12-23)
DX: Z47.81 Encounter for orthopedic aftercare following surgical amputation (principal); M86.9 Osteomyelitis, unspecified; N17.9 Acute kidney failure, unspecified; Z68.41 Body mass index [BMI] 40.0-44.9, adult; Z89.511 Acquired absence of right leg below knee; E11.22 Type 2 diabetes mellitus with diabetic chronic kidney disease; E11.40 Type 2 diabetes mellitus with diabetic neuropathy, unspecified; E11.69 Type 2 diabetes mellitus with other specified complication; E11.65 Type 2 diabetes mellitus with hyperglycemia; E11.51 Type 2 diabetes mellitus with diabetic peripheral angiopathy without gangrene; E83.51 Hypocalcemia; E78.5 Hyperlipidemia, unspecified; E66.9 Obesity, unspecified; F06.31 Mood disorder due to known physiological condition with depressive features; D63.1 Anemia in chronic kidney disease; F41.9 Anxiety disorder, unspecified; G89.4 Chronic pain syndrome; I12.9 Hypertensive chronic kidney disease with stage 1 through stage 4 chronic kidney disease, or unspecified chronic kidney disease; N18.3 Chronic kidney disease, stage 3 (moderate); Z74.09 Other reduced mobility; Z79.4 Long term (current) use of insulin
CPT/HCPCS: 80048; 80053; 81001; 82962; 83036; 83735; 84100; 85025; 87075; 87081; 87086; 92507; 92610; 97110; 97112; 97140; 97150; 97163; 97167; 97530; 97535; 97542; J1170; J1644; J1815; J7030